=== PATIENT | female | born 1965 | race Caucasian/White ===

== ENCOUNTER 2020-10-03 02:10 | Emergency (ER) | payer OTHER ==
[~2020-10-03] VITALS: Ht 165.1 cm; Wt 83.5 kg
[~2020-10-03 02:10] MED LIST: AMIT50 PO; HYDACE5 PO; OXYACE7.5T PO; PENVK250 PO; RXOXYACE PO; RXPENVK250 PO; SERT100; TRAZADONE
[2020-10-03 05:38] LABS: BASOPHILS ABSOLUTE AUTO 0.04 K/mm3 (0.00-0.23); BASOPHILS PERCENT AUTO 0 % (0-2); EOSINOPHILS ABSOLUTE AUTO 0.12 K/mm3 (0.00-0.68); EOSINOPHILS PERCENT AUTO 1 % (0-6); Hematocrit 46.1 % (33.0-51.0); Hemoglobin 15.2 g/dL (11.5-16.0); IMMATURE GRAN ABSOLUTE AUTO 0.02 K/mm3 (0.00-0.10); IMMATURE GRAN PERCENT AUTO 0 % (0-1); LYMPHOCYTES ABSOLUTE AUTO 1.89 K/mm3 (0.84-5.20); LYMPHOCYTES PERCENT AUTO 18 % (21-46); MONOCYTES ABSOLUTE AUTO 0.58 K/mm3 (0.16-1.47); MONOCYTES PERCENT AUTO 6 % (4-13); Mean Corpuscular HGB 29.1 pg (26.0-34.0); Mean Corpuscular Volume 88 fL (80-100); Mean Platelet Volume 9.3 fL (9.1-12.4); NEUTROPHILS ABSOLUTE AUTO 7.65 K/mm3 (1.96-9.15); NEUTROPHILS PERCENT AUTO 74 % (41-73); Platelet Count 218 K/mm3 (150-400); RDW Coefficient Variation 13.2 % (11.7-14.2); RDW Standard Deviation 42.7 fL (35.1-46.3); Red Blood Cell Count 5.23 M/mm3 (3.80-5.20)
[2020-10-03 05:56] LABS: Alanine Aminotransfer (ALT/SGP 28 U/L (12-78); Albumin, Blood 3.8 g/dL (3.4-5.0); Alk Phos 160 U/L (50-136); Anion Gap 4 mmol/L (6-16); Aspartate Aminotrans (AST/SGOT 20 U/L (12-37); Bilirubin, Total 0.4 mg/dL (0.1-1.0); Blood Urea Nitrogen 12 mg/dL (8-24); Bun/Creatinine Ratio 19.5 (12.0-20.0); CO2, Blood 28 mmol/L (21-32); Calcium, Blood 9.5 mg/dL (8.5-10.1); Chloride, Blood 107 mmol/L (98-108); Creatinine, Blood 0.61 mg/dL (0.40-1.00); Globulin, Blood 3.9 g/dL (2.2-4.0); Glomerular Filtration Rate >60 (60-); Glucose, Blood 98 mg/dL (70-99); Potassium, Blood 3.7 mmol/L (3.5-5.5); Sodium, Blood 139 mmol/L (136-145); Total Protein, Blood 7.7 g/dL (6.4-8.2); Uric Acid, Blood 2.5 mg/dL (2.6-6.0)
[2020-10-03] MEDS ORDERED: CEPH500 PO (06:38)
[2020-10-03] MEDS ORDERED: Bactrim Ds Tab1 EACH PO (06:38)
== END 2020-10-03 06:57 | disposition home or self-care (01) ==
LOC: ER 02:10
PROVIDERS: Emergency Medicine
DX: L03.012 Cellulitis of left finger (principal); F17.200 Nicotine dependence, unspecified, uncomplicated; Z87.442 Personal history of urinary calculi
CPT/HCPCS: 36415; 73630; 80053; 84550; 85025; 99283-25; A9270; A9270-GY

== ENCOUNTER → 2020-10-07 | Outpatient (CLI) | payer OTHER ==
[~2020-10-07] MED LIST changes: +Bactrim Ds Tab1 EACH PO; +CEPH500 PO
[2020-10-08 09:58] LABS: Candida species (DNA Probe) Negative (NEGATIVE); G. vaginalis (DNA Probe) Positive (NEGATIVE); T. vaginalis (DNA Probe) Negative (NEGATIVE)
== END | disposition home or self-care (01) ==
LOC: LAB SHORT 13:07 → LAB 13:07
PROVIDERS: Nurse Practitioner Family
DX: Z12.72 Encounter for screening for malignant neoplasm of vagina (principal)
CPT/HCPCS: 87070; 87205; 87480; 87510; 87660; G0145

== ENCOUNTER → 2021-05-27 | Outpatient (CLI) | payer OTHER ==
[2021-05-27 14:22] LABS: Candida species (DNA Probe) Negative (NEGATIVE); G. vaginalis (DNA Probe) Positive (NEGATIVE); T. vaginalis (DNA Probe) Negative (NEGATIVE)
== END | disposition home or self-care (01) ==
LOC: LAB 09:48 → LAB SHORT 09:48
PROVIDERS: Nurse Practitioner Family
DX: N89.8 Other specified noninflammatory disorders of vagina (principal)
CPT/HCPCS: 87480; 87510; 87660

== ENCOUNTER 2022-01-13 09:09 | Emergency (ER) | payer OTHER ==
[~2022-01-13] VITALS: Ht 165.1 cm; Wt 77.1 kg
[2022-01-13] MEDS ORDERED: EZET10 PO (09:29)
[2022-01-13] MEDS ORDERED: CEPH500 PO (10:15)
== END 2022-01-13 10:35 | disposition home or self-care (01) ==
LOC: ER 09:09
DX: S61.512A Laceration without foreign body of left wrist, initial encounter (principal); F17.200 Nicotine dependence, unspecified, uncomplicated; Z23 Encounter for immunization; W27.5XXA Contact with paper-cutter, initial encounter; Z79.899 Other long term (current) drug therapy
CPT/HCPCS: 73100; 90714; A9270

== ENCOUNTER 2023-02-19 23:11 | Emergency (ER) | payer OTHER ==
[~2023-02-19] VITALS: Ht 165.1 cm; Wt 81.7 kg
[~2023-02-19 23:11] MED LIST changes: +EZET10 PO
[2023-02-20 00:02] LABS: BASOPHILS ABSOLUTE AUTO 0.03 K/mm3 (0.00-0.23); BASOPHILS PERCENT AUTO 0 % (0-2); EOSINOPHILS ABSOLUTE AUTO 0.13 K/mm3 (0.00-0.68); EOSINOPHILS PERCENT AUTO 1 % (0-6); Hematocrit 45.2 % (33.0-51.0); Hemoglobin 15.6 g/dL (11.5-16.0); IMMATURE GRAN ABSOLUTE AUTO 0.04 K/mm3 (0.00-0.10); IMMATURE GRAN PERCENT AUTO 0 % (0-1); LYMPHOCYTES ABSOLUTE AUTO 2.53 K/mm3 (0.84-5.20); LYMPHOCYTES PERCENT AUTO 28 % (21-46); MONOCYTES ABSOLUTE AUTO 0.57 K/mm3 (0.16-1.47); MONOCYTES PERCENT AUTO 6 % (4-13); Mean Corpuscular HGB 29.8 pg (26.0-34.0); Mean Corpuscular HGB Conc 34.5 g/dL (31.5-36.5); Mean Corpuscular Volume 86 fL (80-100); Mean Platelet Volume 9.2 fL (9.1-12.4); NEUTROPHILS ABSOLUTE AUTO 5.79 K/mm3 (1.96-9.15); NEUTROPHILS PERCENT AUTO 64 % (41-73); Platelet Count 150 K/mm3 (150-400); RDW Standard Deviation 41.1 fL (35.1-46.3); Red Blood Cell Count 5.23 M/mm3 (3.80-5.20); White Blood Cell Count 9.09 K/mm3 (4.00-11.30)
[2023-02-20 01:18] LABS: Albumin, Blood 3.6 g/dL (3.4-5.0); Albumin/Globulin Ratio 1.4 (0.8-1.8); Bilirubin, Total 0.3 mg/dL (0.1-1.0); Bun/Creatinine Ratio 19.4 (12.0-20.0); Calcium, Blood 8.8 mg/dL (8.5-10.1); Creatinine, Blood 0.62 mg/dL (0.40-1.00); Globulin, Blood 2.5 g/dL (2.2-4.0); Potassium, Blood 3.5 mmol/L (3.5-5.5); Total Protein, Blood 6.1 g/dL (6.4-8.2)
[2023-02-20 04:30] VITALS: BP 143/72
== END 2023-02-20 04:36 | disposition home or self-care (01) ==
LOC: ER 23:11
PROVIDERS: Student in an Organized Health Care Education/Training Program
DX: R07.2 Precordial pain (principal); R42 Dizziness and giddiness; R11.0 Nausea; R55 Syncope and collapse; Z79.899 Other long term (current) drug therapy; F17.210 Nicotine dependence, cigarettes, uncomplicated
CPT/HCPCS: 71045; 80053; 84484; 85025; 93005; 93010; 99285-25

== ENCOUNTER → 2023-06-08 | Outpatient (CLI) | payer OTHER ==
[2023-06-08 15:52] LABS: BASOPHILS ABSOLUTE AUTO 0.05 K/mm3 (0.00-0.23); BASOPHILS PERCENT AUTO 1 % (0-2); EOSINOPHILS ABSOLUTE AUTO 0.14 K/mm3 (0.00-0.68); EOSINOPHILS PERCENT AUTO 1 % (0-6); Hematocrit 45.8 % (33.0-51.0); Hemoglobin 15.2 g/dL (11.5-16.0); IMMATURE GRAN ABSOLUTE AUTO 0.03 K/mm3 (0.00-0.10); IMMATURE GRAN PERCENT AUTO 0 % (0-1); LYMPHOCYTES PERCENT AUTO 20 % (21-46); MONOCYTES PERCENT AUTO 4 % (4-13); Mean Corpuscular HGB 29.2 pg (26.0-34.0); Mean Corpuscular HGB Conc 33.2 g/dL (31.5-36.5); Mean Corpuscular Volume 88 fL (80-100); Mean Platelet Volume 9.4 fL (9.1-12.4); NEUTROPHILS ABSOLUTE AUTO 7.45 K/mm3 (1.96-9.15); NEUTROPHILS PERCENT AUTO 74 % (41-73); Platelet Count 215 K/mm3 (150-400); RDW Coefficient Variation 13.3 % (11.7-14.2); RDW Standard Deviation 42.9 fL (35.1-46.3); Red Blood Cell Count 5.21 M/mm3 (3.80-5.20); White Blood Cell Count 10.07 K/mm3 (4.00-11.30)
[2023-06-08 17:53] LABS: Calcium, Blood 8.8 mg/dL (8.5-10.1); Creatinine, Blood 0.55 mg/dL (0.40-1.00); Potassium, Blood 3.7 mmol/L (3.5-5.5)
[2023-06-11 05:59] LABS: ANTI-NUCLEAR AB ANA,IGG ELISA None Detected (None Detected)
== END | disposition home or self-care (01) ==
LOC: LAB 14:58 → LAB SHORT 14:58
PROVIDERS: Family Medicine
DX: M65.9 Synovitis and tenosynovitis, unspecified (principal)
CPT/HCPCS: 80048; 85025; 86038; 86430

== ENCOUNTER 2024-07-12 11:12 | Day surgery (SDC) | payer OTHER ==
[~2024-07-12] VITALS: Ht 165.1 cm; Wt 75.4 kg
[2024-07-12] MEDS ORDERED: propofoL 100 ML IV ONE (12:06)
[2024-07-12] MEDS ORDERED: Tranexamic Acid 100 ML IV ONE (12:19)
[2024-07-12] MEDS ORDERED: TRAM50 PO (12:42)
[2024-07-12] MEDS ORDERED: ZOCOR20 MG PO (12:42)
[2024-07-12] MEDS ORDERED: Lactated Ringer's 1,000 ML IV ONE (12:49)
[2024-07-12] MEDS ORDERED: Acetaminophen 500 MG Tab ONE (12:55)
[2024-07-12] MEDS ORDERED: EPINEPhrine HCl 1 MG / ML 30ML Vial ONE (13:02)
[2024-07-12] MEDS ORDERED: Lidocaine 1%-Epineph 1:200000 30 ML SDV ONE (13:05)
[2024-07-12] MEDS ORDERED: FentaNYL Citrate 50 MCG/ML 2 ML Injection ONE ×2 (13:06→15:13)
[2024-07-12] MEDS ORDERED: Phenylephrine HCl 100 MCG/ML-NS 10MLSYR (1MG/10ML) ONE (13:35)
[2024-07-12] MEDS ORDERED: Metoclopramide HCl 5MG / ML 2ML Vial ONE (13:48)
[2024-07-12] MEDS ORDERED: Sugammadex Sodium 200 MG/2ML SDV (100 MG/ML) ONE (13:48)
[2024-07-12] MEDS ORDERED: Ondansetron HCl 2 MG / ML 2ML Vial ONE (13:48)
[2024-07-12] MEDS ORDERED: Rocuronium Bromide 10 MG/ML 5ML Injection IV ONE ×2 (13:48→14:31)
[2024-07-12] MEDS ORDERED: Dexamethasone Sod Phos 10 MG/ML 1ML VIAL ONE (13:48)
[2024-07-12] MEDS ORDERED: Ipratropium/Albuterol SulF 2.5-0.5MG/3 ML Amp ONE (14:54)
--- NOTE | 2024-07-12 15:03 | NUR ---
07/12/24 1503 Luz Elena Guerra PATIENT HAS DRY, CHRONIC COUGH. DUONEB ADMINISTERED.
[2024-07-12 15:46] VITALS: BP 130/59
--- NOTE | 2024-07-12 16:56 | NUR ---
07/12/[address] CONSULTED REGARDING D/C ORDERS PRIOR TO D/C. NEW ORDER SET OBTAINED VERBALLY (SEE SURGEON ORDERS.) PT HAD 25ML OF LR REMAINING IN BAG UPON ARRIVAL IN SDU. PT VOIDED WITHOUT COMPLICATION PRIOR TO D/C. SHE REPORTED TOLERABLE 2/10 PAIN UPON D/C AND DENIED NAUSEA (FLACC 1-2/10) . SHE APPEARED ALERT AND RELAXED AND EXPRESSED READINESS TO RETURN HOME.
== END 2024-07-12 16:45 | disposition home or self-care (01) ==
LOC: ORSCSDS 11:12
PROVIDERS: Otolaryngology
PROC: 09BQ4ZZ Excision of Right Maxillary Sinus, Percutaneous Endoscopic Approach (ICD-10-PCS; principal; 2024-07-12 13:00)
DX: D49.1 Neoplasm of unspecified behavior of respiratory system (principal); J44.9 Chronic obstructive pulmonary disease, unspecified; F17.210 Nicotine dependence, cigarettes, uncomplicated; E78.5 Hyperlipidemia, unspecified; K21.9 Gastro-esophageal reflux disease without esophagitis; Z79.899 Other long term (current) drug therapy
CPT/HCPCS: 88305; 88323; 88341; 88342; A9270; J0171; J1100; J2371; J2405; J2704; J2765; J3010

== ENCOUNTER → 2024-07-21 | Outpatient (CLI) | payer OTHER ==
[~2024-07-21] MED LIST changes: +TRAM50 PO; +ZOCOR20 MG PO
[2024-07-21 17:17] LABS: Bacterial Vaginosis PCR Negative (NEGATIVE); Candida Group, PCR NOT DETECTED (NOT DETECT); Candida glabrata-krusei, PCR NOT DETECTED (NOT DETECT)
== END | disposition home or self-care (01) ==
LOC: LAB SHORT 15:16
PROVIDERS: Family Medicine
DX: L29.0 Pruritus ani (principal)
CPT/HCPCS: 81515

== ENCOUNTER → 2024-08-07 | Outpatient (CLI) | payer OTHER ==
[2024-08-10 10:31] LABS: C. TRACHOMATIS BY TMA,THINPREP Negative (Negative); N. GONORRHOEAE BY TMA,THINPREP Negative (Negative); SPECIMEN SOURCE Cervical
[2024-08-14 09:21] LABS: HPV HIGH RISK BY TMA Not Detected; HPV SOURCE Cervical
== END ==
LOC: LAB 17:54 → LAB SHORT 17:54
PROVIDERS: Nurse Practitioner Family
DX: Z12.4 Encounter for screening for malignant neoplasm of cervix (principal)
CPT/HCPCS: 87491; 87591; 87624; G0123

== ENCOUNTER → 2024-08-25 | Outpatient (CLI) | payer OTHER ==
[~2024-08-25] MED LIST changes: +ACET325 PO; +ALLEGRA ALLERG180 MG PO; +BUDESONIDE-FO10.2 G3 INH; +DOCU100 PO; +ERGO400; +HYDR1TAB94 PO; +IBUP800 PO; +SPIRIVA RESPIMAT4 G3; +ZOFRAN8 MG PO
[2024-08-25 20:10] LABS: Very Low Density Lipoprot Chol 45 mg/dL (6-32)
[2024-08-25 20:13] LABS: Cholesterol 265 mg/dL (50-200); HDL Cholesterol 53 mg/dL (>39); LDL/HDL RATIO 3.2; Low Density Lipoprotein Chol 167 mg/dL (0-110); Triglycerides 225 mg/dL (30-160)
== END ==
LOC: LAB SHORT 16:16 → LAB 16:16
PROVIDERS: Physician Assistant
DX: E78.5 Hyperlipidemia, unspecified (principal)
CPT/HCPCS: 80061

== ENCOUNTER 2024-08-30 06:02 | Day surgery (SDC) | payer OTHER ==
[2024-08-30] VITALS (8 sets, daily range): BP systolic 102–165; BP diastolic 64–102
[~2024-08-30] VITALS: Ht 160 cm; Wt 74.1 kg
[2024-08-30] MEDS ORDERED: Lactated Ringer's 1,000 ML IV SCH (06:25)
[2024-08-30] MEDS ORDERED: CeFAZolin Sodium 2,000 MG in NS 100 ML IV SCH (06:25)
--- NOTE | 2024-08-30 06:35 | NUR ---
AMBULATORY INTO [facility]. PT REPORTS 8/10 RIGHT SHOULDER PAIN THAT IS CHRONIC. HISTORY AND ALLERGIES REVIEWED. LUNGS WITH SCATTERED RHONCHI-PT USED RESCUE INHALER. PT HAS FREQUENT MOIST COUGH THAT IS RARELY PRODUCTIVE OF CLEAR SECRETIONS. NPO STATUS CONFIRMED. PT SPOUSE BORIS IS RIDE HOME TODAY.
[2024-08-30] MEDS ORDERED: propofoL 20 ML IV ONE (06:50)
[2024-08-30] MEDS ORDERED: Ondansetron HCl 2 MG / ML 2ML Vial ONE (06:51)
[2024-08-30] MEDS ORDERED: Dexamethasone Sod Phos 10 MG/ML 1ML VIAL ONE (06:51)
[2024-08-30] MEDS ORDERED: FentaNYL Citrate 50 MCG/ML 2 ML Injection ONE (06:51)
[2024-08-30] MEDS ORDERED: Midazolam HCl 1MG / ML 2ML Vial ONE (06:51)
[2024-08-30] MEDS ORDERED: CeFAZolin Sodium 2,000 MG VIAL ONE (07:03)
[2024-08-30] MEDS ORDERED: Bupivacaine 0.5% HCl 5 MG/ML 30MLVIAL ONE (07:09)
[2024-08-30] MEDS ORDERED: Glycopyrrolate 0.2 MG/ML 5ML VIAL ONE (07:41)
[2024-08-30] MEDS ORDERED: Ketorolac Tromethamine 30mg Vial ONE (07:53)
[2024-08-30] MEDS ORDERED: HYDROcodone 5-APAP 325 TAB PO PRN (08:30)
--- NOTE | 2024-08-30 08:52 | NUR ---
PT HAS NEW ONSET BRUISING UNDER RIGHT EYE AND ON THE INSIDE OF THE LEFT EYE. DR. TREVINO AWARE
--- NOTE | 2024-08-30 09:24 | NUR ---
Patient up to Ambulate independently. Gait steady. Discharge instructions reviewed with patient. Patient verbalizes understanding. Copy given to patient to take home. Discharged via wheelchair to private car for ride home.
== END 2024-08-30 09:20 | disposition home or self-care (01) ==
LOC: ORSCMMR 06:02 → ORD 06:02 → ORSCMMR 06:03 → ORD 07:30
PROVIDERS: Surgery
PROC: 05HM33Z Insertion of Infusion Device into Right Internal Jugular Vein, Percutaneous Approach (ICD-10-PCS; principal; 2024-08-30 07:30)
PROC: B543ZZA Ultrasonography of Right Jugular Veins, Guidance (ICD-10-PCS; principal; 2024-08-30 07:30)
PROC: 0JH63WZ Insertion of Totally Implantable Vascular Access Device into Chest Subcutaneous Tissue and Fascia, Percutaneous Approach (ICD-10-PCS; principal; 2024-08-30 07:30)
DX: C85.98 Non-Hodgkin lymphoma, unspecified, lymph nodes of multiple sites (principal); J44.9 Chronic obstructive pulmonary disease, unspecified; Z79.899 Other long term (current) drug therapy; F17.210 Nicotine dependence, cigarettes, uncomplicated
CPT/HCPCS: 77001; C1788; J0690; J1100; J1642; J1885; J2250; J2405; J2704; J3010; J7120

== ENCOUNTER 2024-10-21 11:21 | Inpatient (IN) | payer OTHER ==
[~2024-10-21] VITALS: Ht 162.6 cm; Wt 74.8 kg
[~2024-10-21 11:21] MED LIST changes: -SPIRIVA RESPIMAT4 G3; +SPIRIVA RESPIMAT4 G3 INH
[2024-10-21 11:59] LABS: BASOPHILS ABSOLUTE AUTO 0.02 K/mm3 (0.00-0.23); BASOPHILS PERCENT AUTO 0 % (0-2); EOSINOPHILS ABSOLUTE AUTO 0.01 K/mm3 (0.00-0.68); EOSINOPHILS PERCENT AUTO 0 % (0-6); Hematocrit 38.1 % (33.0-51.0); Hemoglobin 13.4 g/dL (11.5-16.0); IMMATURE GRAN ABSOLUTE AUTO 0.06 K/mm3 (0.00-0.10); IMMATURE GRAN PERCENT AUTO 1 % (0-1); LYMPHOCYTES ABSOLUTE AUTO 0.07 K/mm3 (0.84-5.20); LYMPHOCYTES PERCENT AUTO 1 % (21-46); MONOCYTES ABSOLUTE AUTO 0.31 K/mm3 (0.16-1.47); MONOCYTES PERCENT AUTO 2 % (4-13); Mean Corpuscular HGB 30.9 pg (26.0-34.0); Mean Corpuscular HGB Conc 35.2 g/dL (31.5-36.5); Mean Corpuscular Volume 88 fL (80-100); Mean Platelet Volume 8.6 fL (9.1-12.4); NEUTROPHILS ABSOLUTE AUTO 12.37 K/mm3 (1.96-9.15); NEUTROPHILS PERCENT AUTO 96 % (41-73); Platelet Count 111 K/mm3 (150-400); RDW Coefficient Variation 14.9 % (11.7-14.2); RDW Standard Deviation 48.3 fL (35.1-46.3); Red Blood Cell Count 4.33 M/mm3 (3.80-5.20); White Blood Cell Count 12.84 K/mm3 (4.00-11.30)
[2024-10-21 12:15] LABS: Albumin, Blood 2.9 g/dL (3.4-5.0); Albumin/Globulin Ratio 0.7 (0.8-1.8); Bilirubin, Total 0.6 mg/dL (0.1-1.0); Bun/Creatinine Ratio 22.3 (12.0-20.0); Calcium, Blood 8.7 mg/dL (8.5-10.1); Creatinine, Blood 0.63 mg/dL (0.40-1.00); Globulin, Blood 3.9 g/dL (2.2-4.0); Potassium, Blood 3.3 mmol/L (3.5-5.5); Total Protein, Blood 6.8 g/dL (6.4-8.2)
[2024-10-21 13:38] LABS: Source, Urine Clean Catch
[2024-10-21 13:41] LABS: Appearance, Urine Clear (Clear); Bilirubin, Urine Neg (Neg); Blood, Urine 3+ (Neg); Color, Urine Yellow (P-Yellow); Glucose Qualitative, Urine Neg (Neg); Ketones, Urine 3+ (Neg); Leukocyte Esterase, Urine 1+ (Neg); Nitrite, Urine Neg (Neg); Protein, Urine 2+ (Neg); Specific Gravity, Urine 1.015 (1.003-1.022); Urobilinogen, Urine 1+ (Normal)
[2024-10-21 13:47] LABS: Bacteria Few /hpf; Hyaline Casts 0-2 /lpf (0-2); Squamous Epithelial Cells Few /hpf (Few)
[2024-10-21] MEDS ORDERED: HYDROmorphone HCl/Pf 1MG SYR IV ONE (15:20)
[2024-10-21] MEDS ORDERED: Ampicillin Sod/Sulbactam Sod 3 GM in NS 100 ML IV ONE (15:20)
[2024-10-21] MEDS ORDERED: NS 1,000 ML IV SCH ×2 (15:25→16:00)
[2024-10-21] MEDS ORDERED: Ondansetron 4 MG TAB PO PRN (16:00)
[2024-10-21] MEDS ORDERED: TraZODone HCl 50 MG Tab PO PRN (16:00)
[2024-10-21] MEDS ORDERED: Bisacodyl 10 MG Supp PR PRN (16:00)
[2024-10-21] MEDS ORDERED: Magnesium Hydroxide Conc 10 ML UDC PO PRN (16:00)
[2024-10-21] MEDS ORDERED: Ipratropium/Albuterol SulF 2.5-0.5MG/3 ML Amp INH PRN (16:05)
[2024-10-21] MEDS ORDERED: Mometasone/Formoterol MDI 200/5 mcg 13 GM INH SCH (16:05)
[2024-10-21] MEDS ORDERED: Ondansetron HCl 2 MG / ML 2ML Vial IV ONE (16:10)
[2024-10-21] MEDS ORDERED: OxyCODONE 5 mg/Acetamin 325 mg TABLET PO PRN (19:40)
[2024-10-21 20:14] VITALS: BP 96/57
[2024-10-21] MEDS ORDERED: Calcium Carbonate 500 MG Tab Chew PO PRN (21:35)
[2024-10-21 23:38] VITALS: BP 130/52
[2024-10-22] MEDS ORDERED: Piperacillin/Tazobactam Sod 3.375 GM in NS 100 ML IV SCH
[2024-10-22] MEDS ORDERED: Ampicillin Sod/Sulbactam Sod 3 GM in NS 100 ML IV SCH
[2024-10-22] MEDS ORDERED: HYDROmorphone HCl/Pf 1MG SYR IV PRN ×2 (00:10→11:20)
[2024-10-22] MEDS ORDERED: Ketorolac Tromethamine 15mg Vial IV PRN (00:20)
--- NOTE | 2024-10-22 03:01 | NUR ---
SHIFT SUMMARY PT ARRIVED FROM THE ED 2029. PT BROUGHT ALL HER BELONINGS WITH HER. EDUCATED CONTRACTS MANAGER LIGHT AND FALL PREVENTIONS. EDUCATED ON SMOKING POLICY. PT'S BY THE BEDSIDE. RN BREAK NURSE PANDA COMPLETED THE ADMISSION ASSESSMENT, SKIN CHECK WITH THIS MANIPULATOR OPERATOR. PT IS A/O X4, ABLE TO MAKE HER NEEDS KNOWN. PT IS INDEPENDENT W/I THE HOSPITAL ROOM. CONTINENT. NS INFUSING 1/2 BAGS ORDERED. IV ABX INFUSED ORDERED. NEW ORDER FOR PO PERCOCET RECEIVED FROM THE ON-CALL HOSPITALIST. MEDICATED FOR 9/10 LLW, AND RLQ PAIN PER PT REQUEST. BED AT THE LOWEST POSITION, CALL LIGHT W/I REACH.
[2024-10-22 03:44] VITALS: BP 119/63
[2024-10-22 05:10] LABS: BASOPHILS ABSOLUTE AUTO 0.03 K/mm3 (0.00-0.23); BASOPHILS PERCENT AUTO 0 % (0-2); EOSINOPHILS ABSOLUTE AUTO 0.01 K/mm3 (0.00-0.68); EOSINOPHILS PERCENT AUTO 0 % (0-6); Hematocrit 34.6 % (33.0-51.0); IMMATURE GRAN ABSOLUTE AUTO 0.26 K/mm3 (0.00-0.10); IMMATURE GRAN PERCENT AUTO 3 % (0-1); LYMPHOCYTES ABSOLUTE AUTO 0.09 K/mm3 (0.84-5.20); LYMPHOCYTES PERCENT AUTO 1 % (21-46); MONOCYTES PERCENT AUTO 4 % (4-13); Mean Corpuscular HGB Conc 34.7 g/dL (31.5-36.5); Mean Corpuscular Volume 89 fL (80-100); Mean Platelet Volume 8.8 fL (9.1-12.4); NEUTROPHILS ABSOLUTE AUTO 9.68 K/mm3 (1.96-9.15); NEUTROPHILS PERCENT AUTO 92 % (41-73); Platelet Count 93 K/mm3 (150-400); RDW Coefficient Variation 15.2 % (11.7-14.2); RDW Standard Deviation 49.7 fL (35.1-46.3); Red Blood Cell Count 3.87 M/mm3 (3.80-5.20); White Blood Cell Count 10.47 K/mm3 (4.00-11.30)
[2024-10-22 05:35] LABS: Albumin, Blood 2.4 g/dL (3.4-5.0); Albumin/Globulin Ratio 0.7 (0.8-1.8); Bilirubin, Total 0.5 mg/dL (0.1-1.0); Bun/Creatinine Ratio 12.7 (12.0-20.0); Calcium, Blood 8.4 mg/dL (8.5-10.1); Creatinine, Blood 0.63 mg/dL (0.40-1.00); Globulin, Blood 3.5 g/dL (2.2-4.0); Total Protein, Blood 5.9 g/dL (6.4-8.2)
[2024-10-22 07:33] VITALS: BP 121/66
[2024-10-22] MEDS ORDERED: Loratadine 10 MG Tab PO SCH (09:00)
[2024-10-22] MEDS ORDERED: Enoxaparin 40 MG/0.4 ML SYR SC SCH (09:00)
[2024-10-22] MEDS ORDERED: Potassium Chloride 20 MEQ TabCR PO ONE (09:00)
[2024-10-22 09:25] VITALS: BP 108/60
[2024-10-22] MEDS ORDERED: Docusate Sodium/Senna 1 Tab PO PRN (11:15)
[2024-10-22] MEDS ORDERED: Ondansetron HCl 2 MG / ML 2ML Vial IV PRN (11:20)
[2024-10-22] MEDS ORDERED: Mineral Oil 133 ML Enema PR ONE (11:20)
--- NOTE | 2024-10-22 11:38 | NUR ---
ENEMA PHARAMCY OUT OF FLEETS OIL ENEMA. DR SELF CALLED. SIMPLE FLEETS SOAP SUDS ORDERED. CARE ONGOING.
[2024-10-22] MEDS ORDERED: Sod Phosphate/Sod Biphosphate 132 ML BTL PR ONE (11:40)
[2024-10-22] MEDS ORDERED: Acetaminophen 500 MG Tab PO SCH (12:00)
[2024-10-22] MEDS ORDERED: OxyCODONE HCL 5 MG TAB PO SCH (12:00)
[2024-10-22] MEDS ORDERED: Potassium Chloride 20 MEQ/15 ML UDC PO SCH (12:00)
--- NOTE | 2024-10-22 16:58 | NUR ---
NOTE PT AWAKE VISITNG WITH FAMILY. SCHEDULED NARCOTICS EFFECTIVE. ZOFRAN 8MG EFFECTIVE FOR NAUSEA. ABD TENDER AND SOFT. PT DRINKING PEPSI. SHE STATES THAT IT SETTELES HER STOMACH BETTER THAN TUMS. UP TO BSC AD AGATA. SHE HAS NOT HAD A BM. TALKED WITH HER ABOUT A SUPPOSITORY BEFORE BED. CARE ONGOING.
[2024-10-22 17:00] VITALS: BP 101/52
[2024-10-22 19:52] VITALS: BP 89/46
[2024-10-22] MEDS ORDERED: Polyethylene Glycol 3350 17 gm PO SCH (21:00)
[2024-10-22 23:17] VITALS: BP 90/57
--- NOTE | 2024-10-22 23:27 | NUR ---
@HS PT HAS SOFT BP'S/ CHECKED MANUALLY @3384 90/58, P.58. PT REMAINS ASYMPTOMATIC. WILL NOTIFY CHARGE NURSE.
[2024-10-23 02:50] VITALS: BP 94/60
--- NOTE | 2024-10-23 03:35 | NUR ---
SHIFT SUMMARY NO ACUTE EVENTS DURING THIS SHIFT. SOFT BP'S, PT HAS A GREAT PO INTAKE FOR FLUIDS AND REMAINS ASYMPTOMATIC. RN NOTIFIED. PAIN LEVEL IS 5/10 WITH SCHEDULED TYLENOL AND OXYCODONE. IV ABX INFUSED ORDERED. BED AT THE LOWEST POSITION, CALL LIGHT W/I REACH. PT IS A/O X4, ABLE TO MAKE HER NEEDS KNOWN AND COOPERATIVE WITH CARE. SBA TO THE RESTROOM OR BSC. NO BM DURING THIS SHIFT, MIRALAX ADMINISTERED AT HS.
[2024-10-23] MEDS ORDERED: NS 250 ML IV PRN (05:05)
[2024-10-23 05:28] LABS: BASOPHILS ABSOLUTE AUTO 0.03 K/mm3 (0.00-0.23); BASOPHILS PERCENT AUTO 1 % (0-2); Hematocrit 32.5 % (33.0-51.0); Hemoglobin 11.2 g/dL (11.5-16.0); LYMPHOCYTES PERCENT AUTO 2 % (21-46); MONOCYTES ABSOLUTE AUTO 0.23 K/mm3 (0.16-1.47); MONOCYTES PERCENT AUTO 4 % (4-13); Mean Corpuscular HGB 30.9 pg (26.0-34.0); Mean Corpuscular HGB Conc 34.5 g/dL (31.5-36.5); Mean Corpuscular Volume 90 fL (80-100); Platelet Count 98 K/mm3 (150-400); RDW Coefficient Variation 15.5 % (11.7-14.2); RDW Standard Deviation 50.7 fL (35.1-46.3); Red Blood Cell Count 3.63 M/mm3 (3.80-5.20); White Blood Cell Count 5.63 K/mm3 (4.00-11.30)
[2024-10-23 05:32] LABS: EOSINOPHILS ABSOLUTE AUTO 0.03 K/mm3 (0.00-0.68); EOSINOPHILS PERCENT AUTO 1 % (0-6); IMMATURE GRAN ABSOLUTE AUTO 0.02 K/mm3 (0.00-0.10); IMMATURE GRAN PERCENT AUTO 0 % (0-1); NEUTROPHILS ABSOLUTE AUTO 5.22 K/mm3 (1.96-9.15); NEUTROPHILS PERCENT AUTO 93 % (41-73)
[2024-10-23 05:54] LABS: Bun/Creatinine Ratio 13.3 (12.0-20.0); Calcium, Blood 8.4 mg/dL (8.5-10.1); Creatinine, Blood 0.68 mg/dL (0.40-1.00); Magnesium, Blood 1.9 mg/dL (1.6-2.4); Potassium, Blood 3.2 mmol/L (3.5-5.5)
[2024-10-23 07:30] VITALS: BP 99/62
[2024-10-23] MEDS ORDERED: NS 1,000 ML IV SCH (08:20)
[2024-10-23 11:06] VITALS: BP 107/61
[2024-10-23 14:38] VITALS: BP 97/53
--- NOTE | 2024-10-23 18:20 | NUR ---
PATIENT A/OX4, UP INDEPENDENTLY TO BSC. VERY SMALL BM THIS AM, CONTINUE WITH BOWEL CARE. VSS, ON RA. REPORTS GOOD PAIN CONTROL WITH SCHEDULED TYLENOL AND OXYCODONE. SCATTERED BRUISING, OTHERWISE SKIN INTACT. TOLERATING FULL LIQUID DIET. NS INFUSING AT 100ML/HR T L FA IV. PATENT PLEASANT AND COOPERATIVE AND USES CALL LIGHT APPROPRIATELY FOR ASSISTANCE. NO NEW CONCERNS THIS SHIFT.
[2024-10-23 19:36] VITALS: BP 109/56
[2024-10-23 23:52] VITALS: BP 105/62
[2024-10-24 03:44] VITALS: BP 113/65
--- NOTE | 2024-10-24 04:01 | NUR ---
SHIFT SUMMARY A/OX4, UP IND TO BSC. SEVERAL LOOSE STOOLS THIS SHIFT. IV FLUIDS AND ABX GIVEN PER AUG. C/O MODERATE ABD PAIN, MEDICATED WITH SCHEDULED OXY PER EMAR. VSS, NO ACUTE CHANGES AT THIS TIME. BED IN LOWEST POSITION WITH CALL LIGHT IN REACH.
[2024-10-24 05:07] LABS: BASOPHILS ABSOLUTE AUTO 0.02 K/mm3 (0.00-0.23); BASOPHILS PERCENT AUTO 0 % (0-2); EOSINOPHILS ABSOLUTE AUTO 0.03 K/mm3 (0.00-0.68); EOSINOPHILS PERCENT AUTO 0 % (0-6); Hematocrit 31.6 % (33.0-51.0); Hemoglobin 11.1 g/dL (11.5-16.0); IMMATURE GRAN ABSOLUTE AUTO 0.09 K/mm3 (0.00-0.10); IMMATURE GRAN PERCENT AUTO 1 % (0-1); LYMPHOCYTES ABSOLUTE AUTO 0.14 K/mm3 (0.84-5.20); LYMPHOCYTES PERCENT AUTO 2 % (21-46); MONOCYTES ABSOLUTE AUTO 0.26 K/mm3 (0.16-1.47); MONOCYTES PERCENT AUTO 3 % (4-13); Mean Corpuscular HGB 30.7 pg (26.0-34.0); Mean Corpuscular HGB Conc 35.1 g/dL (31.5-36.5); Mean Corpuscular Volume 88 fL (80-100); Mean Platelet Volume 8.7 fL (9.1-12.4); NEUTROPHILS ABSOLUTE AUTO 7.39 K/mm3 (1.96-9.15); NEUTROPHILS PERCENT AUTO 93 % (41-73); Platelet Count 112 K/mm3 (150-400); RDW Coefficient Variation 15.6 % (11.7-14.2); RDW Standard Deviation 49.9 fL (35.1-46.3); Red Blood Cell Count 3.61 M/mm3 (3.80-5.20); White Blood Cell Count 7.93 K/mm3 (4.00-11.30)
[2024-10-24 05:24] LABS: Albumin, Blood 2.1 g/dL (3.4-5.0); Albumin/Globulin Ratio 0.6 (0.8-1.8); Bilirubin, Total 0.3 mg/dL (0.1-1.0); Bun/Creatinine Ratio 15.9 (12.0-20.0); Calcium, Blood 8.5 mg/dL (8.5-10.1); Creatinine, Blood 0.57 mg/dL (0.40-1.00); Globulin, Blood 3.8 g/dL (2.2-4.0); Magnesium, Blood 1.8 mg/dL (1.6-2.4); Total Protein, Blood 5.9 g/dL (6.4-8.2)
[2024-10-24 07:49] VITALS: BP 112/62
[2024-10-24] MEDS ORDERED: Potassium Chloride 20 MEQ TabCR PO SCH (09:00)
[2024-10-24] MEDS ORDERED: DOCUZEN 8.6-501 EACH PO (11:05)
[2024-10-24] MEDS ORDERED: LEVO750 PO (11:06)
--- NOTE | 2024-10-24 11:20 | NUR ---
PATIENT DC'D TO HOME WITH FAMILY. DC INSTRUCTIONS AND EDUCATION DISCUSSED WITH PATIENT AND COPY PROVIDED. RX MEDICATIONS FAXED TO [facility]. PATIENT DENIES ANY FURTHER QUESTIONS OR CONCERNS.
== END 2024-10-24 11:30 | disposition home or self-care (01) | DRG 392 ==
LOC: ER 11:21 → ERHOLD 15:55 → MEDS 19:30
PROVIDERS: Student in an Organized Health Care Education/Training Program; ADMIT Hospitalist
DX: K57.20 Diverticulitis of large intestine with perforation and abscess without bleeding (principal); C82.90 Follicular lymphoma, unspecified, unspecified site; J44.9 Chronic obstructive pulmonary disease, unspecified; M19.90 Unspecified osteoarthritis, unspecified site; F17.200 Nicotine dependence, unspecified, uncomplicated; Z87.442 Personal history of urinary calculi; Z90.49 Acquired absence of other specified parts of digestive tract; Z98.890 Other specified postprocedural states; Z98.51 Tubal ligation status; Z91.040 Latex allergy status; Z88.6 Allergy status to analgesic agent; Z88.8 Allergy status to other drugs, medicaments and biological substances; Z79.899 Other long term (current) drug therapy
CPT/HCPCS: 36415; 74018; 74177; 80048; 80053; 81001; 83605; 83690; 83735; 84100; 84145; 85025; 87086; 94640; 94664; 94760; 99285-25; A9270; J0295; J1171; J1650; J1885; J2405; J2543; J7030; Q9967

== ENCOUNTER 2024-11-15 04:03 | Inpatient (IN) | payer OTHER ==
[~2024-11-15] VITALS: Ht 160 cm; Wt 72.0 kg
[~2024-11-15 04:03] MED LIST changes: +DOCUZEN 8.6-501 EACH PO; +LEVO750 PO; +ONDA4ODT MM
[2024-11-15 05:19] LABS: Source, Urine Clean Catch
[2024-11-15 05:21] LABS: BASOPHILS ABSOLUTE AUTO 0.08 K/mm3 (0.00-0.23); BASOPHILS PERCENT AUTO 0 % (0-2); EOSINOPHILS PERCENT AUTO 0 % (0-6); Hematocrit 32.1 % (33.0-51.0); Hemoglobin 11.2 g/dL (11.5-16.0); IMMATURE GRAN ABSOLUTE AUTO 1.04 K/mm3 (0.00-0.10); IMMATURE GRAN PERCENT AUTO 5 % (0-1); LYMPHOCYTES ABSOLUTE AUTO 2.35 K/mm3 (0.84-5.20); LYMPHOCYTES PERCENT AUTO 10 % (21-46); MONOCYTES ABSOLUTE AUTO 1.48 K/mm3 (0.16-1.47); MONOCYTES PERCENT AUTO 7 % (4-13); Mean Corpuscular HGB Conc 34.9 g/dL (31.5-36.5); Mean Corpuscular Volume 86 fL (80-100); NEUTROPHILS ABSOLUTE AUTO 17.87 K/mm3 (1.96-9.15); NEUTROPHILS PERCENT AUTO 78 % (41-73); Platelet Count 242 K/mm3 (150-400); RDW Standard Deviation 49.8 fL (35.1-46.3); Red Blood Cell Count 3.73 M/mm3 (3.80-5.20); White Blood Cell Count 22.82 K/mm3 (4.00-11.30)
[2024-11-15 05:27] LABS: Blood, Urine 4+ (Neg); Glucose Qualitative, Urine Neg (Neg); Ketones, Urine 1+ (Neg); Leukocyte Esterase, Urine 3+ (Neg); Nitrite, Urine Neg (Neg); Protein, Urine 3+ (Neg); Urobilinogen, Urine 1+ (Normal)
[2024-11-15 05:36] LABS: Bilirubin, Urine 1+ (Neg)
[2024-11-15 05:37] LABS: Appearance, Urine Cloudy (Clear); Color, Urine Amber (P-Yellow)
[2024-11-15 05:38] LABS: Amorphous Light (0-Heavy); Bacteria Many /hpf; Mucus Light (0-Heavy); Squamous Epithelial Cells Few /hpf (Few); White Blood Cells, Urine 25-50 /hpf (0-5)
[2024-11-15 05:43] LABS: Albumin, Blood 2.6 g/dL (3.4-5.0); Albumin/Globulin Ratio 0.7 (0.8-1.8); Bilirubin, Total 0.5 mg/dL (0.1-1.0); Bun/Creatinine Ratio 17.2 (12.0-20.0); Calcium, Blood 8.8 mg/dL (8.5-10.1); Creatinine, Blood 0.58 mg/dL (0.40-1.00); Globulin, Blood 3.6 g/dL (2.2-4.0); Total Protein, Blood 6.2 g/dL (6.4-8.2)
[2024-11-15] MEDS ORDERED: CefTRIAXone Sodium 1,000 MG in NS 100 ML IV ONE (06:45)
[2024-11-15] MEDS ORDERED: Ondansetron HCl 2 MG / ML 2ML Vial IV PRN (08:10)
[2024-11-15] MEDS ORDERED: Potassium Chloride 40 MEQ in NS 250 ML IV ONE (08:15)
[2024-11-15] MEDS ORDERED: NS 250 ML IV PRN (09:00)
[2024-11-15] MEDS ORDERED: Ampicillin Sod/Sulbactam Sod 3 GM in NS 100 ML IV SCH (09:00)
[2024-11-15 12:09] VITALS: BP 108/64
[2024-11-15] MEDS ORDERED: Sodium, Potassium,Mag Sulfates 354 ML PO ONE (13:05)
[2024-11-15] MEDS ORDERED: FentaNYL Citrate 50 MCG/ML 2 ML Injection IV PRN (13:40)
[2024-11-15] MEDS ORDERED: NEOMYCIN SULFATE 500 MG PO SCH (14:00)
[2024-11-15] MEDS ORDERED: MetroNIDAZOLE 500 MG Tab PO SCH (14:00)
[2024-11-15 14:37] VITALS: BP 109/60
--- NOTE | 2024-11-15 18:09 | NUR ---
SHIFT SUMMARY ASSUMED CARE FROM ER AROUND 1200. PT AXO4 - AMBULATORY, ARRIVES IN WHEELCHAIR, NOT TOLERATING IV KCL WELL, POWERGLIDE PLACED, NOW TOLERATING WELL. PT HAS MEDIPORT FOR CANCER TREATMENT, ONCOLOGIST STATES TO NOT UTILIZE MEDIPORT FOR PT. PT W/ DIARRHEA THE LAST FEW WEEKS, THIS CONTINUES BUT PT STARTED ON BOWEL PREP FOR PROCEDURE TOMORROW WITH DR DALAL. PT SLOWLY TOLERATING PREP BUT STRUGGLING TO CONSUME MIXTURE. PT WITH MILD PAIN TO ABD, MEDS PER EMAR. PT ON TELE, SR PER WIND SCIENCE AND PLANNING. VAGINAL BLEDING MINIMAL, MORE "YELLOW LOOKING" OUTPUT TO PT. THIS RN HAS NOT VISUALIZED. OTHERWISE, TOLERATING CLEAR LIQUID DIET WELL. VSS. FAMILY IN ROOM AT DIFFERENT TIMES POST ADMISSION.
[2024-11-15 19:54] VITALS: BP 121/68
[2024-11-15] MEDS ORDERED: HYDROcodone 5-APAP 325 TAB PO PRN (20:15)
[2024-11-16] VITALS (18 sets, daily range): BP systolic 103–144; BP diastolic 59–75
--- NOTE | 2024-11-16 06:19 | NUR ---
NOC SUMMARY- PT PAIN MANAGED WELL. PT HAS BEEN NPO SINCE [place]. PT HAS BEEN HAVING FREQUENT BM'S. PT INDEPENDANT TO BATHROOM. CALL LIGHT IN REACH.
[2024-11-16 09:39] LABS: Hematocrit 30.3 % (33.0-51.0); Hemoglobin 10.3 g/dL (11.5-16.0); Mean Corpuscular HGB 29.7 pg (26.0-34.0); Mean Corpuscular Volume 87 fL (80-100); Mean Platelet Volume 8.9 fL (9.1-12.4); Platelet Count 249 K/mm3 (150-400); RDW Coefficient Variation 16.4 % (11.7-14.2); RDW Standard Deviation 51.3 fL (35.1-46.3); Red Blood Cell Count 3.47 M/mm3 (3.80-5.20)
[2024-11-16 10:11] LABS: Bun/Creatinine Ratio 11.5 (12.0-20.0); Calcium, Blood 8.6 mg/dL (8.5-10.1); Creatinine, Blood 0.52 mg/dL (0.40-1.00); Potassium, Blood 2.9 mmol/L (3.5-5.5)
[2024-11-16] MEDS ORDERED: Potassium Chl 20MEQ/Water100ML 100 ML IV SCH (11:25)
[2024-11-16] MEDS ORDERED: Lactated Ringer's 1,000 ML IV SCH (12:05)
--- NOTE | 2024-11-16 13:01 | NUR ---
History, Chart, Medications and Allergies reviewed before start of procedure. Lungs clear T/O to Auscultation. Patient confirms NPO status and agrees with scheduled surgery. Pre-Op teaching done. Pt verbalizes understanding. Patient states colon prep results clear. Patient up to Ambulate independently. Gait steady.
[2024-11-16] MEDS ORDERED: Bupivacaine 0.5% HCl 5 MG/ML 30MLVIAL ONE (14:09)
[2024-11-16] MEDS ORDERED: Albumin (Human) 12.5gm/250ml 250 ML IV ONE ×2 (14:23→18:05)
[2024-11-16] MEDS ORDERED: Magnesium Sulfate 500 MG / ML 2ML Vial ONE (14:23)
[2024-11-16] MEDS ORDERED: propofoL 20 ML IV ONE (14:25)
[2024-11-16] MEDS ORDERED: Metoclopramide HCl 5MG / ML 2ML Vial ONE (14:25)
[2024-11-16] MEDS ORDERED: Rocuronium Bromide 10 MG/ML 5ML Injection IV ONE ×3 (14:25→17:18)
[2024-11-16] MEDS ORDERED: Lidocaine HCl 2% 20 ML MDV ONE ×2 (14:25→14:33)
[2024-11-16] MEDS ORDERED: Ondansetron HCl 2 MG / ML 2ML Vial ONE (14:25)
[2024-11-16] MEDS ORDERED: FentaNYL Citrate 50 MCG/ML 5 ML Injection ONE (14:34)
[2024-11-16] MEDS ORDERED: FentaNYL Citrate 50 MCG/ML 2 ML Injection IV PRN ×2 (16:05→16:10)
[2024-11-16] MEDS ORDERED: HYDROmorphone HCl/Pf 1MG SYR IV PRN ×2 (16:05→22:30)
[2024-11-16] MEDS ORDERED: Ondansetron HCl 2 MG / ML 2ML Vial IV PRN (16:05)
[2024-11-16] MEDS ORDERED: Metoclopramide HCl 5MG / ML 2ML Vial IV PRN (16:10)
[2024-11-16] MEDS ORDERED: Ampicillin Sod/Sulbactam Sod 3 GM in NS 100 ML IV ONE ×2 (17:55→20:00)
[2024-11-16] MEDS ORDERED: Tranexamic Acid 100 ML IV ONE (19:00)
[2024-11-16] MEDS ORDERED: Tranexamic Acid 1,000 MG/0.7% NaCl 100 ML BAG IV ONE (19:00)
[2024-11-16] MEDS ORDERED: HYDROmorphone HCl/Pf 1MG SYR ONE ×3 (19:07→23:02)
[2024-11-16] MEDS ORDERED: Sugammadex Sodium 200 MG/2ML SDV (100 MG/ML) ONE (19:09)
--- NOTE | 2024-11-16 19:16 | NUR ---
PT LEFT FOR PROCEDURE AT APPROX 1230. PT REMAINS IN SURGERY AT THIS TIME. REPORT GIVEN TO ONCOMING RN. PT HAD DENIED PAIN THROUGHOUT SHIFT AND INDEPENDENTLY AMBULATING IN HER ROOM.
[2024-11-16] MEDS ORDERED: FentaNYL Citrate 50 MCG/ML 2 ML Injection ONE (22:23)
[2024-11-16] MEDS ORDERED: HYDROcodone 5-APAP 325 TAB PO PRN (22:30)
[2024-11-16] MEDS ORDERED: Albuterol 2.5 MG/3 ML VIAL INH ONE (22:30)
[2024-11-17] VITALS (9 sets, daily range): BP systolic 111–139; BP diastolic 67–85
--- NOTE | 2024-11-17 04:08 | NUR ---
SHIFT SUMMARY BRUCE WAS ALERT AND FULLY ORIENTED WHEN SHE ARRIVED FROM PACU @ AROUND 2330 PT WAS PAINFUL UPON ARRIVAL. INSCISION SITES C/D/I, ABD TENDER, BT'S HYPOACTIVE PT FAMILY PRESENT ON PT RETURN. VSS. PAIN RESPONSIVE TO MEDS. PT DID BECOME NAUSEOUS, IMPROVED WITH WITH ZOFRAN. PT ON 3L O2 VIA NC ON ARRIVAL, TITRATED DOWN TO 2L. SATS HOLDING STEADY ABOVE 90%. NO ACUTE POST OP EVENTS. PT SENSATION SLOWLY RETURNING.
[2024-11-17 06:23] LABS: Hematocrit 26.9 % (33.0-51.0); Hemoglobin 8.9 g/dL (11.5-16.0); Mean Corpuscular HGB 29.7 pg (26.0-34.0); Mean Corpuscular HGB Conc 33.1 g/dL (31.5-36.5); Mean Corpuscular Volume 90 fL (80-100); Mean Platelet Volume 9.1 fL (9.1-12.4); Platelet Count 301 K/mm3 (150-400); RDW Coefficient Variation 17.2 % (11.7-14.2); White Blood Cell Count 26.32 K/mm3 (4.00-11.30)
[2024-11-17 06:53] LABS: Bun/Creatinine Ratio 13.2 (12.0-20.0); Calcium, Blood 7.8 mg/dL (8.5-10.1); Creatinine, Blood 0.61 mg/dL (0.40-1.00); Potassium, Blood 3.9 mmol/L (3.5-5.5)
[2024-11-17] MEDS ORDERED: LORazepam 2 MG/ML 1ML Injection IV PRN (07:30)
[2024-11-17] MEDS ORDERED: FentaNYL Citrate 50 MCG/ML 2 ML Injection IV PRN (07:30)
[2024-11-17] MEDS ORDERED: AMOX-CLAV 875-1 EAC5 PO (11:17)
[2024-11-17] MEDS ORDERED: ONDA4ODT MM (11:17)
[2024-11-17] MEDS ORDERED: MIRALAX1714 PO (11:18)
--- NOTE | 2024-11-17 16:52 | NUR ---
SHIFT SUMMARY S/P OPEN COLECTOMY. PT HAD X1 ANXIETY ATTACK THIS MORNING. ATIVAN EFFECTIVE. NO ANXIETY SINCE. LAP SITES + MIDLINE INCISION ARE CDI. COLOSTOMY WITH SMALL AMOUNT OF FLATUS PRESENT. STOMA PINK AND MOIST. PT CHANDLER SMALL CLEAR LIQS AND ADVANCING TO FULL LIQS FOR DINNER TONIGHT. UP TO CHAIR WITH 1 ASSIST. JACKSON PATENT. CATH CARE COMPLETE. IV ABX PER ORDERS. NORCO + FENTANYL FOR PAIN CONTROL. VSS. TELE ST IN THE 100-110S. FAMILY AT BEDSIDE FOR SUPPORT. USES CALL LIGHT APPRORIATELY.
[2024-11-17] MEDS ORDERED: Metoclopramide HCl 5MG / ML 2ML Vial IV PRN (19:45)
[2024-11-18 04:01] VITALS: BP 124/74
--- NOTE | 2024-11-18 04:04 | NUR ---
SHIFT SUMMARY BRUCE WAS ALERT AND FULLY ORIENTED ON ASSESSMENT. PT STILL PAINFUL, PAIN IS LESS LABILE THAN PREVIOUS NOC, PAIN RESPONSIVE TO MEDS. PT WITH NAUSEA THIS SHIFT, RESOLVED WITH REGLAN. JACKSON REMOVED THIS SHIFT. REDNESS TO MIDLINE INCISION PRESENT BUT REDUCED FROM END OF PREV NOC SHIFT. OSTOMY OUTPUTTING A GOOD AMOUNT OF DARK LIQUID, GAS PRESENT. STOMA LOOKS HEALTHY. TOLERATING DIET. TELE DC'D. NO ACUTE EVENTS TONIGHT. NO NOTED CHANGES TO PT CONDITION.
[2024-11-18 06:21] LABS: Hematocrit 23.9 % (33.0-51.0); Mean Corpuscular HGB 29.6 pg (26.0-34.0); Mean Corpuscular HGB Conc 33.5 g/dL (31.5-36.5); Mean Corpuscular Volume 89 fL (80-100); Mean Platelet Volume 9.1 fL (9.1-12.4); NRBC ABSOLUTE 0.03 K/mm3 (0.00-0.02); NRBC Auto 0.1 /100 WBC (0.0-0.2); Platelet Count 302 K/mm3 (150-400); RDW Coefficient Variation 17.5 % (11.7-14.2); RDW Standard Deviation 54.4 fL (35.1-46.3); White Blood Cell Count 43.76 K/mm3 (4.00-11.30)
[2024-11-18 06:50] LABS: Bun/Creatinine Ratio 13.1 (12.0-20.0); Calcium, Blood 7.9 mg/dL (8.5-10.1); Creatinine, Blood 0.53 mg/dL (0.40-1.00); Potassium, Blood 3.4 mmol/L (3.5-5.5)
[2024-11-18 07:11] VITALS: BP 117/72
[2024-11-18] MEDS ORDERED: Potassium Chloride 20 MEQ TabCR PO ONE (08:25)
[2024-11-18 08:37] LABS: Percent Saturation 12.3 % (15.0-50.0)
[2024-11-18] MEDS ORDERED: MetroNIDAZOLE 500MG/NS 100 ml 100 ML IV SCH (08:39)
[2024-11-18] MEDS ORDERED: Lactated Ringer's 1,000 ML IV SCH (08:50)
[2024-11-18] MEDS ORDERED: Lactated Ringer's 1,000 ML IV ONE (08:50)
[2024-11-18] MEDS ORDERED: Enoxaparin 40 MG/0.4 ML SYR SC SCH (09:00)
[2024-11-18 10:49] LABS: Hematocrit 22.8 % (33.0-51.0); Hemoglobin 7.8 g/dL (11.5-16.0); Mean Corpuscular HGB 30.1 pg (26.0-34.0); Mean Corpuscular HGB Conc 34.2 g/dL (31.5-36.5); Mean Corpuscular Volume 88 fL (80-100); Platelet Count 299 K/mm3 (150-400); RDW Coefficient Variation 17.3 % (11.7-14.2); RDW Standard Deviation 53.1 fL (35.1-46.3); Red Blood Cell Count 2.59 M/mm3 (3.80-5.20); White Blood Cell Count 42.31 K/mm3 (4.00-11.30)
[2024-11-18 11:12] LABS: BASOPHILS PERCENT MAN 0 % (0-2); EOSINOPHILS PERCENT MAN 0 % (0-6); LYMPHOCYTES ABSOLUTE MAN 2.96 K/mm3 (0.84-5.20); LYMPHOCYTES PERCENT MAN 7 % (21-46); MONOCYTES ABSOLUTE MAN 1.26 K/mm3 (0.16-1.47); MONOCYTES PERCENT MAN 3 % (4-13); NEUTROPHILS ABSOLUTE MAN 38.07 K/mm3 (1.96-9.15); SEG NEUTROPHILS PERCENT MAN 90 % (41-73); TOTAL CELLS COUNTED 100
[2024-11-18 11:14] LABS: Anion Gap 8 mmol/L (3-11); Blood Urea Nitrogen 6 mg/dL (8-24); Bun/Creatinine Ratio 12.1 (12.0-20.0); C-Reactive Protein, High Sens. >190.000 mg/L (0.000-3.000); CO2, Blood 26 mmol/L (21-32); Calcium, Blood 7.7 mg/dL (8.5-10.1); Chloride, Blood 101 mmol/L (98-108); Creatinine, Blood 0.49 mg/dL (0.40-1.00); Glomerular Filtration Rate 107 (60-); Glucose, Blood 138 mg/dL (70-99); Potassium, Blood 3.3 mmol/L (3.5-5.5); Sodium, Blood 132 mmol/L (136-145)
[2024-11-18] MEDS ORDERED: Piperacillin/Tazobactam Sod 3.375 GM in NS 100 ML IV SCH (12:00)
[2024-11-18] MEDS ORDERED: LORazepam 1 MG Tab PO PRN (12:30)
[2024-11-18] MEDS ORDERED: Iron Dextran 50 MG / ML 2ML Vial IV ONE (14:35)
[2024-11-18 15:28] VITALS: BP 101/60
--- NOTE | 2024-11-18 15:31 | NUR ---
RN ADMINISTERED TEST DOSE OF IRON DEXTRAN. WILL MONITOR FOR SIGNS OF ADVERSE REACTION AND MONITOR VITALS Q 20 MINUTES FOR THE NEXT HOUR.
[2024-11-18 15:54] VITALS: BP 106/60
[2024-11-18] MEDS ORDERED: Iron Dextran 975 MG in NS 250 ML IV ONE (16:00)
--- NOTE | 2024-11-18 18:01 | NUR ---
LATE ENTRY: 1600 - PT HAS VAGINAL DISCHARGE IT IS BLOOD TINGED. PT C/O ITCHING TO VAG LABIA. RN CALLED DR. DALAL TO NOTIFY. NO NEW ORDERS AT THIS TIME BECAUSE OF THE COLOVAGINAL FISTULA AND RECENT SURGERY - PT MAY EXPERIENCE VAG DISCHARGE FOR A FEW DAYS. NURSING TO CONTINUE TO MONITOR. RN EDUCATED PT ON GOOD PERINEAL HYGEINE AND TO MONITOR FOR WHITE DISCHARGE OR SX OF VAG YEAST INFECTION.
[2024-11-18 19:53] VITALS: BP 113/61
--- NOTE | 2024-11-18 20:02 | NUR ---
BRUCE IS a&O X4. ROOM AIR. POWERGLIDE TO LEFT UPPER ARM. IV ABX ADMINISTERED. POD#1 AFTER A LAP SIGMOID COLECTOMY WITH OPEN RESECTION. ILEOSTOMY DRAINING GREEN LIQUID STOOL. 4 LAP SITES ARE SECURED WITH WOUND GLUE, MIDLINE INCISION. NO REDNESS OR EXUDATE. BOWEL TONES HYPERACTIVE. PT WITH NAUSEA/VOMITING THIS SHIFT. QUITE PAINFUL TO ABD. PAIN IS RELIEVED WITH PRN FENTANYL, NORCO, AND ZOFRAN. PT BEGAN TO HAVE VAG DISCHARGE THIS SHIFT - BROWN TO YELLOW/BROWN. DR. DALAL NOTIFIED, NO NEW ORDERS. CONTINUE TO MONITOR. IRON DEXTRAN GIVEN, PT TOLERATED MEDICATION WELL WITH NO ADVERSE REACTIONS. CONTINENT OF URINE. SBA TO BATHROOM. VOIDING SMALL FREQUENT VOIDS. ABD CT SCAN TODAY SHOWED MILD GAS/AIR IN ABD THAT IS NOT INCONSISTENT WITH RECENT SURGERY. AFEBRILE. RN GAVE REPORT TO NIGHT NURSE.
[2024-11-19 03:17] VITALS: BP 121/57
[2024-11-19 06:09] LABS: BASOPHILS ABSOLUTE AUTO 0.08 K/mm3 (0.00-0.23); BASOPHILS PERCENT AUTO 0 % (0-2); EOSINOPHILS PERCENT AUTO 0 % (0-6); Hematocrit 23.2 % (33.0-51.0); Hemoglobin 7.8 g/dL (11.5-16.0); IMMATURE GRAN ABSOLUTE AUTO 1.14 K/mm3 (0.00-0.10); IMMATURE GRAN PERCENT AUTO 4 % (0-1); LYMPHOCYTES ABSOLUTE AUTO 2.88 K/mm3 (0.84-5.20); LYMPHOCYTES PERCENT AUTO 9 % (21-46); MONOCYTES ABSOLUTE AUTO 1.48 K/mm3 (0.16-1.47); MONOCYTES PERCENT AUTO 5 % (4-13); Mean Corpuscular HGB Conc 33.6 g/dL (31.5-36.5); Mean Corpuscular Volume 89 fL (80-100); Mean Platelet Volume 8.9 fL (9.1-12.4); NEUTROPHILS ABSOLUTE AUTO 26.23 K/mm3 (1.96-9.15); NEUTROPHILS PERCENT AUTO 82 % (41-73); NRBC ABSOLUTE 0.02 K/mm3 (0.00-0.02); NRBC Auto 0.1 /100 WBC (0.0-0.2); Platelet Count 323 K/mm3 (150-400); RDW Coefficient Variation 17.7 % (11.7-14.2); RDW Standard Deviation 55.4 fL (35.1-46.3); White Blood Cell Count 31.81 K/mm3 (4.00-11.30)
[2024-11-19] MEDS ORDERED: Pantoprazole Sodium 40 MG Tab PO SCH (06:20)
--- NOTE | 2024-11-19 06:24 | NUR ---
PTS RN REQESTED PT TO HAVE PROTONIX FOR C/O INCREASING EPIGASTRIC PAIN.I CALLED DR CASH AND ADVISED OF ABOVE. RECEIVED ORDER FOR PROTONIX.
[2024-11-19 06:28] LABS: Anion Gap 10 mmol/L (3-11); Blood Urea Nitrogen 5 mg/dL (8-24); Bun/Creatinine Ratio 9.3 (12.0-20.0); CO2, Blood 26 mmol/L (21-32); Calcium, Blood 8.3 mg/dL (8.5-10.1); Chloride, Blood 99 mmol/L (98-108); Creatinine, Blood 0.54 mg/dL (0.40-1.00); Glomerular Filtration Rate 105 (60-); Glucose, Blood 134 mg/dL (70-99); Phosphorus, Blood 2.2 mg/dL (2.5-4.9); Potassium, Blood 2.9 mmol/L (3.5-5.5); Sodium, Blood 132 mmol/L (136-145)
[2024-11-19 07:15] VITALS: BP 127/71
--- NOTE | 2024-11-19 07:16 | NUR ---
PT MEDICATED FOR PAIN Q2 WITH NORCO AND FENTANLY. PT STATES PAIN IS RELIEVED BUT RETURNS AFTER AMBULATING. PAIN AT ABDOMEN AND IS TENDER PT AMBULATING TO THE BATHROOM WITH WALKER SBA. EDUCATED ON EMPTYING ILEOSTOMY. PT STATES SHE IS NOT READY TO EMPTY IT AT THE MOMENT. PT STILL HAS YELLOWISH /BROWN VAGINAL DISCHARGE. ILEOSTOMY PUTTING OUT GREEN LIQUID STOOL. HEMOGLOBIN REMAINS AT 7.8 THIS AM.
[2024-11-19] MEDS ORDERED: Potassium Phosphate Dibasic 30 MM in Dextrose 5% 500 ML IV STA (08:07)
[2024-11-19] MEDS ORDERED: Psyllium 1 EA Pack PO SCH (09:00)
[2024-11-19] MEDS ORDERED: Calcium Carbonate 500 MG Tab Chew PO PRN (13:00)
[2024-11-19] MEDS ORDERED: Bismuth Subsalicylate 262 MG Chew PO PRN (13:00)
[2024-11-19 15:25] VITALS: BP 127/65
--- NOTE | 2024-11-19 18:08 | NUR ---
SHIFT SUMMARY NO ACUTE CHANGES THIS SHIFT. VSS. AXO4. ON RA. AMBULATORY, THOUGH, PT IS BECOMING WEAKER DAY PROGRESSES, NOTED TO BE USING WALKER TO AMBULATE TO BATHROOM TOWARDS END OF THIST, THIS WAS NOT THE CASE AT THE BEGINNING OF SHIFT. PT C/O PERSISTENT PAIN AND NAUSEA T/O SHIFT, MEDS PER EMAR HELPFUL WITH MANAGEMENT. EMESIS IS OFTEN <125MLS - DARK BROWN/YELLOW. ILEOSTOMY WITH LITTLE OUTPUT TODAY BUT PT WITH LITTLE PO INTAKE. PT TO BATHROOM OFTEN FOR CONTINUED BROWN/YELLOW VAGINAL DC PER PT, THIS IS AN ONGOING ISSUE, IS LESSENING SHIFT HAS PROCEEDED. LAPRASCOPIC SITES AND MIDLINE SITE STABLE, GLUE CDI. OTHERWISE, PT RESTING OFF AND ON TODAY. RECEIVING LARGE AMOUNT OF IV ABX. KPHOS REPLACED TODAY. PT USING CALL LIGHT APPROPRIATELY.
[2024-11-19 20:08] VITALS: BP 125/74
[2024-11-20 03:55] VITALS: BP 128/74
--- NOTE | 2024-11-20 04:51 | NUR ---
CLAY DIGGER SUMMARY PT HAS DONE PRETTY WELL TONIGHT. MEDICATED FOR NAUSEA TWICE THROUGH THE NIGHT AND ABD PAIN HAS BEEN WELL MANAGED WITH 2 TABS NORCO Q4H. PT HAS DRANK SMALL AMOUNTS OF WATER BUT HAS STILL BEEN UNABLE TO TOLERATE ANY SIGNIFICANT PO INTAKE. ILEOSTOMY WILL SMALL AMOUNT OF DARK BROWN/GREEN LIQUID STOOL THAT LOOKS SIMILAR TO VAGINAL DISCHARGE. OSTOMY EMPTIED FOR APPROXIMATELY 50 ML OF LIQUID. PT INDEPENDENT TO BATHROOM. AAOX4 AND PLEASANT, MAKES NEEDS KNOWN. VSS, WCTM.
[2024-11-20 05:37] LABS: Hematocrit 24.5 % (33.0-51.0); Hemoglobin 8.3 g/dL (11.5-16.0); Mean Corpuscular HGB 29.7 pg (26.0-34.0); Mean Corpuscular HGB Conc 33.9 g/dL (31.5-36.5); Mean Corpuscular Volume 88 fL (80-100); Mean Platelet Volume 8.8 fL (9.1-12.4); NRBC ABSOLUTE 0.14 K/mm3 (0.00-0.02); NRBC Auto 0.4 /100 WBC (0.0-0.2); Platelet Count 377 K/mm3 (150-400); RDW Coefficient Variation 17.9 % (11.7-14.2); RDW Standard Deviation 54.8 fL (35.1-46.3); Red Blood Cell Count 2.79 M/mm3 (3.80-5.20); White Blood Cell Count 38.63 K/mm3 (4.00-11.30)
[2024-11-20 05:58] LABS: Bun/Creatinine Ratio 8.6 (12.0-20.0); Calcium, Blood 8.4 mg/dL (8.5-10.1); Creatinine, Blood 0.58 mg/dL (0.40-1.00); Magnesium, Blood 1.5 mg/dL (1.6-2.4); Phosphorus, Blood 3.6 mg/dL (2.5-4.9)
[2024-11-20] MEDS ORDERED: D5W-1/2NS KCl 20mEq 1,000 ML IV SCH (07:10)
[2024-11-20] MEDS ORDERED: Lactated Ringer's 1,000 ML IV SCH (07:10)
[2024-11-20] MEDS ORDERED: Lactated Ringer's 1,000 ML IV ONE (07:10)
[2024-11-20 07:29] VITALS: BP 115/68
[2024-11-20] MEDS ORDERED: Mag Sulfate 1 GM/D5% 100ML 100 ML IV STA (07:51)
--- NOTE | 2024-11-20 14:23 | NUR ---
DR DALAL PHYSICIAN TO ROOM, ASSESSED PT. CONCERNS NOTED REGARDING VAGINAL OUTPUT COLORATION/CONSISTENCY. PLAN FOR ABD CT WITH PO/MI CONTRAST TODAY. PT NOW NPO PER ORDERS.
[2024-11-20 15:15] VITALS: BP 113/61
--- NOTE | 2024-11-20 17:15 | NUR ---
PT TO CT AT ~1700
--- NOTE | 2024-11-20 17:15 | NUR ---
SHIFT SUMMARY PT AXO4. VSS. RECEIVING IV ABX T/O SHIFT, RECEIVED LR BOLUS X1L, AND CONTINUOUS FLUIDS. PAIN MUCH MORE CONTROLLED AEB DEREASED PAIN PILL USE AND ONLY ONE DOSE OF IV PAIN MEDS POST SHOWERING. ILEOSTOMY OUTPUT SLIGHTLY INCREASED TODAY, HAVE HAD TO EMPTY TWICE THIS SHIFT. VAGINAL OUTPUT HAS CONTINUED. DR DALAL ASSESSED, PT NOW NPO, AWAITING CT ABD/PELVIS RESULTS, AND THEN WILL RECEIVE FURTHER DIRECTION FROM PROVIDER.
[2024-11-20 19:13] VITALS: BP 100/54
[2024-11-21 04:12] VITALS: BP 104/67
[2024-11-21 05:01] LABS: Hematocrit 25.3 % (33.0-51.0); Hemoglobin 8.4 g/dL (11.5-16.0); Mean Corpuscular HGB 29.5 pg (26.0-34.0); Mean Corpuscular HGB Conc 33.2 g/dL (31.5-36.5); Mean Corpuscular Volume 89 fL (80-100); Mean Platelet Volume 8.5 fL (9.1-12.4); NRBC Auto 0.3 /100 WBC (0.0-0.2); Platelet Count 398 K/mm3 (150-400); RDW Coefficient Variation 19.5 % (11.7-14.2); RDW Standard Deviation 57.1 fL (35.1-46.3); Red Blood Cell Count 2.85 M/mm3 (3.80-5.20); White Blood Cell Count 30.82 K/mm3 (4.00-11.30)
[2024-11-21 05:40] LABS: Bun/Creatinine Ratio 7.5 (12.0-20.0); Calcium, Blood 8.2 mg/dL (8.5-10.1); Creatinine, Blood 0.53 mg/dL (0.40-1.00); Magnesium, Blood 1.8 mg/dL (1.6-2.4); Potassium, Blood 3.1 mmol/L (3.5-5.5)
--- NOTE | 2024-11-21 06:21 | NUR ---
DIRECT CUSTOMER SERVICE REPRESENTATIVE SUMMARY NO ACUTE CHANGES THIS SHIFT. PT CONTINUES TO HAVE BROWN/GREEN VAGINAL DISCHARGE THAT IS UNCHANGED FROM THE LAST FEW DAYS. PAIN MANAGED WITH IV DILAUDID AND NORCO. DR DALAL HAD THIS RN REMOVE RED ROBBIN DRAIN FROM OSTOMY SITE. MINIMAL OUTPUT INTO OSTOMY BAG HOWEVER MORE GAS NOTED AND BAG HAD TO BE BURPED SEVERAL TIMES. PT ON FULL LIQUID DIET AND ATTEMPTED TO EAT ICE CREAM BUT IT DID NOT SETTLE WELL WITH HER STOMACH. VITALS STABLE, WILL CONTINUE TO MONITOR.
[2024-11-21 07:57] VITALS: BP 102/61
[2024-11-21] MEDS ORDERED: Potassium Phosphate Dibasic 30 MM in Dextrose 5% 500 ML IV STA (08:03)
[2024-11-21] MEDS ORDERED: Lactated Ringer's 1,000 ML IV ONE (08:05)
--- NOTE | 2024-11-21 09:13 | NUR ---
RECTAL TUBE PLACED IN VAGINA WITH JULIO CESAR Brown RN PER DR DALAL ORDERS. FILLED WITH 40MLS TO BALLOON - PT COMFORTABLE WITH THIS AMOUNT.
[2024-11-21 15:14] VITALS: BP 109/66
--- NOTE | 2024-11-21 17:42 | NUR ---
SHIFT SUMMARY PT AAXO4. VSS. REQUIRING MORE PAIN MEDS THAN YESTERDAY. ABX REGIMEN T/O SHIFT ALONGSIDE KPHOS REPLACEMENT. LEG EDEMA RELAYED TO DR CORMIER, PHYSICIAN STATES HE WILL REVIEW, PT +2 CURRENTLY BILATERALLY. PT TOLERATING CLEAR TO ALMOST FULL LIQUIDS TODAY, RARE REPORTED EPISODES OF NAUSEA. PER NIX, RECTAL TUBE PLACED IN VAGINA TO CATCH SUCCOUS OUTPUT FOR ACCURATE MEASUREMENTS, UPON INITIAL PLACEMENT, UNABLE TO DRAIN, GRADUALLY DECREASED BALLON INFLATION AND THEN IRRIGATED, OUTPUT NOTED TO BE ~100MLS AFTER THIS, REMAINS GREEN/BROWN OUTPUT. PT VOIDING OFTEN. ILEOSTOMY OUTPUT INCREASING, STILL MINIMAL OUTPUT. NIX IN ROOM WHILE IRRIGATING RECTAL TUBE, STATES EXPECTATION OF DECREASING DRAINAGE AMOUNT. LAP SITES AND MIDLINE SIGHT CDI. PT REMAINS SBA WITH FWW. FAMILY AT BEDSIDE AT DIFFERENT POINTS T/O SHIFT. CALL LIGHT WITHIN REACH.
[2024-11-21 20:23] VITALS: BP 114/58
[2024-11-22 03:10] VITALS: BP 108/64
[2024-11-22 06:11] LABS: Bun/Creatinine Ratio 3.8 (12.0-20.0); Calcium, Blood 8.2 mg/dL (8.5-10.1); Creatinine, Blood 0.53 mg/dL (0.40-1.00); Potassium, Blood 3.5 mmol/L (3.5-5.5)
--- NOTE | 2024-11-22 06:35 | NUR ---
SHIFT SUMMARY PT HAS RESTED OFF AND ON T/O THE SHIFT. PAIN MANANGED PER EMAR. 100 CC WAS DRAINED FROM RECTAL TUBE THIS SHIFT. OUTPUT BROWN. MEDICATED FOR NAUSEA X1 THIS SHIFT AT THE BEGINNING OF THE SHIFT. PT HAD NO MORE NAUSEA FOR THE REMAINDER OF SHIFT, HAS BEEN ABLE TO TOLERATE FLUIDS. IV ANTIBIOTICS CONTINUED. PT AMBULATES WELL WITH 1 PA. VITALS STABLE. PLAN OF CARE UNCHANGED. BED IN LOWEST POSITION, CALL LIGHT WITHIN REACH.
[2024-11-22 07:27] VITALS: BP 101/55
[2024-11-22 10:07] LABS: Hematocrit 26.4 % (33.0-51.0); Hemoglobin 8.6 g/dL (11.5-16.0); Mean Corpuscular HGB 30.2 pg (26.0-34.0); Mean Corpuscular HGB Conc 32.6 g/dL (31.5-36.5); Mean Corpuscular Volume 93 fL (80-100); Mean Platelet Volume 8.4 fL (9.1-12.4); NRBC ABSOLUTE 0.07 K/mm3 (0.00-0.02); NRBC Auto 0.3 /100 WBC (0.0-0.2); Platelet Count 381 K/mm3 (150-400); RDW Coefficient Variation 20.9 % (11.7-14.2); RDW Standard Deviation 60.2 fL (35.1-46.3); Red Blood Cell Count 2.85 M/mm3 (3.80-5.20); White Blood Cell Count 27.62 K/mm3 (4.00-11.30)
[2024-11-22 10:30] LABS: BAND PERCENT MAN 2 % (0-8); BASOPHILS PERCENT MAN 0 % (0-2); EOSINOPHILS PERCENT MAN 0 % (0-6); LYMPHOCYTES ABSOLUTE MAN 1.65 K/mm3 (0.84-5.20); LYMPHOCYTES PERCENT MAN 6 % (21-46); METAMYELOCYTE ABSOLUTE MAN 0.27 K/mm3 (0.00-0.00); METAMYELOCYTE PERCENT MAN 1 % (0-0); MONOCYTES ABSOLUTE MAN 3.03 K/mm3 (0.16-1.47); MONOCYTES PERCENT MAN 11 % (4-13); NEUTROPHILS ABSOLUTE MAN 22.64 K/mm3 (1.96-9.15); SEG NEUTROPHILS PERCENT MAN 80 % (41-73); TOTAL CELLS COUNTED 100
[2024-11-22 14:50] VITALS: BP 119/64
[2024-11-22 19:18] VITALS: BP 111/63
[2024-11-22] MEDS ORDERED: Psyllium 1 EA Pack PO SCH (21:00)
[2024-11-23] VITALS (20 sets, daily range): BP systolic 106–144; BP diastolic 57–88
--- NOTE | 2024-11-23 05:48 | NUR ---
SHIFT SUMMARY PT HAS RESTED T/O THE NIGHT. FREQUENT PRNS FOR PAIN, PAIN MANAGED PER EMAR. RECTAL TUBE DRAINED 100CC THIS SHIFT. ILLEOSTOMY PRODUCING STOOL. NO NAUSEA, PT TOLERATING PO INTAKE. SURIGICAL SITE WNL. IV ANTIBITOICS CONTINUED. PLAN OF CARE REMAINS UNCHANGED. BED IN LOWEST POSITION, CALL LIGHT WITHIN REACH.
--- NOTE | 2024-11-23 07:50 | NUR ---
ASSUMPTION OF CARE: THIS RN ASSUMED CARE OF PATIENT. AWAKE DURING SHIFT CHANGE REPORT, HAVING JUST GOTTEN UP TO USE RESTROOM. BREATHING SHARP SECONDARY TO PAIN; REQUESTING PAIN MEDS. OSTOMY AND RECTAL TUBES PATENT AND DRAINING BROWN LIQUID TO GRAVITY. REQUESTING JULIO CESAR TO REINSERT RECTAL TUBE SECONDARY TO DISCOMFORT. BED IN LOWEST POSITION. CALL LIGHT WITHIN REACH. ACUTE NEEDS MET.
[2024-11-23] MEDS ORDERED: HYDROcodone 7.5-APAP 325 TAB PO PRN (08:20)
[2024-11-23] MEDS ORDERED: Arginine/Glutamine/Calcium Hmb 1 Packet PO SCH (09:00)
[2024-11-23 09:42] LABS: Bun/Creatinine Ratio 6.5 (12.0-20.0); Calcium, Blood 7.9 mg/dL (8.5-10.1); Creatinine, Blood 0.47 mg/dL (0.40-1.00); Magnesium, Blood 1.8 mg/dL (1.6-2.4); Phosphorus, Blood 1.9 mg/dL (2.5-4.9); Potassium, Blood 3.2 mmol/L (3.5-5.5)
--- NOTE | 2024-11-23 10:07 | NUR ---
PATIENT CALLED c C/O "STUFF SQUIRTING FROM MY INCISION". GREENISH BROWN LIQUID, SIMILAR TO THAT DRAINING TO OSTOMY AND RECTAL TUBE, SEEN OOZING FROM MIDLINE INCISION. PROVIDED c CLEANSING WIPES, ASSISTED c CLEANSING. CHARGE, ALEXX, ASSISTED c WOUND CLEANSER AND DRESSING AND CALL TO DR. DALAL.
[2024-11-23] MEDS ORDERED: Lactated Ringer's 1,000 ML IV SCH (11:35)
--- NOTE | 2024-11-23 11:41 | NUR ---
PT TRANSPORTED TO [facility] VIA BED. AGREES WITH PLANNED SURGERY. Pre-Op teaching done. Pt verbalizes understanding. PT HAD FEW BITES OFF EGGS, ANDORRAN TOAST AND MILK AT APPOX [phone] THIS AM, DR. DALAL AWARE.
[2024-11-23] MEDS ORDERED: Sugammadex Sodium 200 MG/2ML SDV (100 MG/ML) ONE (12:10)
[2024-11-23] MEDS ORDERED: Midazolam HCl 1MG / ML 2ML Vial ONE (12:10)
[2024-11-23] MEDS ORDERED: propofoL 20 ML IV ONE (12:10)
[2024-11-23] MEDS ORDERED: HYDROmorphone HCl/Pf 1MG SYR ONE ×2 (12:10→16:06)
[2024-11-23] MEDS ORDERED: FentaNYL Citrate 50 MCG/ML 2 ML Injection ONE (12:10)
[2024-11-23] MEDS ORDERED: Dexamethasone Sod Phos 10 MG/ML 1ML VIAL ONE (12:12)
[2024-11-23] MEDS ORDERED: Ondansetron HCl 2 MG / ML 2ML Vial ONE (12:12)
[2024-11-23] MEDS ORDERED: Rocuronium Bromide 10 MG/ML 5ML Injection IV ONE (12:13)
[2024-11-23] MEDS ORDERED: Vasopressin 20 UNITS/ML 1ML Vial ONE (12:13)
[2024-11-23] MEDS ORDERED: Phenylephrine HCl 100 MCG/ML-NS 10MLSYR (1MG/10ML) ONE (12:13)
[2024-11-23] MEDS ORDERED: ePHEDrine Sulfate 50 MG/ML 1ML Injection ONE (12:14)
[2024-11-23] MEDS ORDERED: SuccINYLCHOLINE Chloride 100 MG/5 ML 5MLSYR ONE (12:15)
--- NOTE | 2024-11-23 12:15 | NUR ---
DR. DENISE (ANESTHESIA) AWERE OF BREAKFAST THAT WAS EATEN.
[2024-11-23] MEDS ORDERED: Estradiol Vag Cream 0.1 MG/G 42.5 GM Tube VAG ONE (14:50)
--- NOTE | 2024-11-23 15:02 | NUR ---
11/23/24 1502 Sharif Zaman ESTADIOL VAGINAL CREAM APPLIED TO VAG PACKING AND PACKED IN VAGINA BY DR. MANZANO
[2024-11-23] MEDS ORDERED: D5W-1/2NS KCl 20mEq 1,000 ML IV SCH (16:00)
[2024-11-23] MEDS ORDERED: Potassium Phosphate Dibasic 30 MM in NS 500 ML IV SCH (16:30)
--- NOTE | 2024-11-23 17:00 | NUR ---
PATIENT RETURNED TO SURGICAL FLOOR FOLLOWING SMALL BOWEL REPAIR AND VAGINAL FISTULA REPAIR. SPO2 88%-92% RA. PLACED 2LPM/NC TO MAINTAIN >92%. PATIENT DROWSY, BUT ALERT. REQUESTING PAIN MEDS.
--- NOTE | 2024-11-23 19:13 | NUR ---
END OF SHIFT SUMMARY: A&Ox4. PLEASANT AND COOPERATIVE WITH CARE. CALLS EXCESSIVELY, PARTICULARLY WHEN ANXIETY IS HIGH. REPORTS IMPROVEMENT IN ANXIETY c PO ATIVAN. ADVOCATES NEEDS EFFECTIVELY. MAINTAINING SPO2 >92% ON SPOT CHECK c 2LPM/NC INTERMITTENTLY D/T NARCOTIC USE. BACK TO OR TODAY FOR SMALL BOWEL REPAIR AND VAGINAL FISTULA REPAIR AFTER NOTED TO BE HAVING DISCHARGE THROUGH SUTURE LINE C/W DRAINAGE IN OSTOMY BAG. MIDLINE CHAS IN PLACE WITH SLIGHT SHADOWING. COMPA DRAIN RUQ PATENT AND DRAINING SEROSANGUINEOUS FLUID. JACSKON PLACED IN OR; PATENT AND DRAINING YELLOW URINE TO GRAVITY. C/O FEELING LIKE SHE NEEDS TO VOID; LIKELY D/T VAGINAL PACKING PRESSING AGAINST URETHRA. ENCOURAGED REPOSITIONING, BUT SHE IS APPREHENSIVE FOR FEAR OF PAIN. NPO x CHIPS AND SIPS. PO MEDS OKAY. POWERGLIDE TO LUE PATENT c KVO BUT DOES NOT DRAW. BED IN LOWEST POSITION, CALL LIGHT WITHIN REACH, ALL NEEDS MET. REPORT TO ONCOMING NURSE.
[2024-11-24 04:47] VITALS: BP 105/67
[2024-11-24 04:51] LABS: Mean Corpuscular HGB 30.2 pg (26.0-34.0); Mean Corpuscular Volume 97 fL (80-100); NRBC ABSOLUTE 0.04 K/mm3 (0.00-0.02); NRBC Auto 0.1 /100 WBC (0.0-0.2); Platelet Count 383 K/mm3 (150-400); RDW Coefficient Variation 22.5 % (11.7-14.2); RDW Standard Deviation 75.7 fL (35.1-46.3); Red Blood Cell Count 2.98 M/mm3 (3.80-5.20); White Blood Cell Count 29.79 K/mm3 (4.00-11.30)
[2024-11-24 05:13] LABS: Magnesium, Blood 1.7 mg/dL (1.6-2.4)
[2024-11-24 05:14] LABS: BAND PERCENT MAN 9 % (0-8); BASOPHILS PERCENT MAN 0 % (0-2); EOSINOPHILS PERCENT MAN 0 % (0-6); LYMPHOCYTES ABSOLUTE MAN 1.78 K/mm3 (0.84-5.20); LYMPHOCYTES PERCENT MAN 6 % (21-46); MONOCYTES ABSOLUTE MAN 0.89 K/mm3 (0.16-1.47); MONOCYTES PERCENT MAN 3 % (4-13); MYELOCYTE ABSOLUTE MAN 0.59 K/mm3 (0.00-0.00); MYELOCYTE PERCENT MAN 2 % (0-0); NEUTROPHILS ABSOLUTE MAN 26.51 K/mm3 (1.96-9.15); SEG NEUTROPHILS PERCENT MAN 80 % (41-73); TOTAL CELLS COUNTED 100
[2024-11-24 05:20] LABS: Alanine Aminotransfer (ALT/SGP 17 U/L (12-78); Albumin, Blood 1.5 g/dL (3.4-5.0); Albumin/Globulin Ratio 0.5 (0.8-1.8); Alk Phos 171 U/L (50-136); Anion Gap 11 mmol/L (3-11); Aspartate Aminotrans (AST/SGOT 26 U/L (12-37); Bilirubin, Total 0.4 mg/dL (0.1-1.0); Blood Urea Nitrogen 6 mg/dL (8-24); Bun/Creatinine Ratio 13.3 (12.0-20.0); CO2, Blood 24 mmol/L (21-32); Calcium, Blood 7.7 mg/dL (8.5-10.1); Chloride, Blood 103 mmol/L (98-108); Creatinine, Blood 0.45 mg/dL (0.40-1.00); Globulin, Blood 2.9 g/dL (2.2-4.0); Glomerular Filtration Rate 109 (60-); Glucose, Blood 109 mg/dL (70-99); Phosphorus, Blood 5.1 mg/dL (2.5-4.9); Potassium, Blood 4.7 mmol/L (3.5-5.5); Sodium, Blood 133 mmol/L (136-145); Total Protein, Blood 4.4 g/dL (6.4-8.2); Triglycerides 85 mg/dL (30-160)
--- NOTE | 2024-11-24 05:44 | NUR ---
SHIFT SUMMARY BRUCE WAS ALERT AND FULLY ORIENTED ON ASSESSMENT. PAIN MODERATELY WELL CONTROLLED. MIDLINE CHAS C/D/I WITH SOME SMALL AREAS OF SHADOWING. COMPA DRAINING CLEAR/RED SS FLUID. NO FLATUS OR OUTPUT TO OSTOMY AT THIS TIME. YELLOW URINE WITH GOOD OUTPUT TO JACKSON. NO VAGINAL DISCHARGE NOTED. VSS, NO ACUTE EVENTS THIS SHIFT.
[2024-11-24 08:09] VITALS: BP 126/78
[2024-11-24 14:07] VITALS: BP 107/68
[2024-11-24] MEDS ORDERED: [UNRECOGNIZED DRUG - NUTRITION] IV SCH (17:00)
[2024-11-24] MEDS ORDERED: TPN Consult Notification XX ONE (17:00)
--- NOTE | 2024-11-24 18:36 | NUR ---
SHIFT SUMMARY POD1 FOR EX LAP AND FUSTULA CLOSEURE. MIDLINE CHAS WITH S/S DIME SIZE DRNG. COMPA IN PLACE WITH S/S OUT PUT. OSTOMY WITH NO OUTPUT YET. STOMA IS BEEFY AND PINK. PAIN MANAGED PER EMAR. JACKSON IN PLACE TO GRAVITY. VSS. NPO AT THIS TIME AWAITING RETURN OF BOWEL FUNCTION. CALL LIGHT IN REACH.
[2024-11-24 19:10] VITALS: BP 98/58
[2024-11-25] MEDS ORDERED: Ondansetron HCl 2 MG / ML 2ML Vial IV ONE (01:50)
[2024-11-25 04:35] VITALS: BP 128/69
[2024-11-25] MEDS ORDERED: Benzocaine Oral Spray 0.5ML UD MT ONE (04:55)
[2024-11-25 07:14] VITALS: BP 108/62
[2024-11-25 09:43] LABS: Hematocrit 26.3 % (33.0-51.0); Hemoglobin 8.4 g/dL (11.5-16.0); Mean Corpuscular HGB 30.3 pg (26.0-34.0); Mean Corpuscular HGB Conc 31.9 g/dL (31.5-36.5); Mean Corpuscular Volume 95 fL (80-100); Mean Platelet Volume 8.8 fL (9.1-12.4); NRBC ABSOLUTE 0.07 K/mm3 (0.00-0.02); NRBC Auto 0.3 /100 WBC (0.0-0.2); Platelet Count 377 K/mm3 (150-400); RDW Coefficient Variation 21.4 % (11.7-14.2); RDW Standard Deviation 72.9 fL (35.1-46.3); Red Blood Cell Count 2.77 M/mm3 (3.80-5.20); White Blood Cell Count 25.59 K/mm3 (4.00-11.30)
[2024-11-25 10:10] LABS: Albumin, Blood 1.7 g/dL (3.4-5.0); Albumin/Globulin Ratio 0.5 (0.8-1.8); Bilirubin, Total 0.3 mg/dL (0.1-1.0); Bun/Creatinine Ratio 18.6 (12.0-20.0); Calcium, Blood 8.4 mg/dL (8.5-10.1); Creatinine, Blood 0.48 mg/dL (0.40-1.00); Globulin, Blood 3.1 g/dL (2.2-4.0); Potassium, Blood 3.9 mmol/L (3.5-5.5); Total Protein, Blood 4.8 g/dL (6.4-8.2)
[2024-11-25 10:11] LABS: Phosphorus, Blood 1.5 mg/dL (2.5-4.9)
[2024-11-25 10:19] LABS: BAND PERCENT MAN 3 % (0-8); BASOPHILS PERCENT MAN 0 % (0-2); EOSINOPHILS PERCENT MAN 0 % (0-6); LYMPHOCYTES ABSOLUTE MAN 2.04 K/mm3 (0.84-5.20); LYMPHOCYTES PERCENT MAN 8 % (21-46); MONOCYTES PERCENT MAN 9 % (4-13); NEUTROPHILS ABSOLUTE MAN 21.23 K/mm3 (1.96-9.15); SEG NEUTROPHILS PERCENT MAN 80 % (41-73); TOTAL CELLS COUNTED 100
--- NOTE | 2024-11-25 11:56 | NUR ---
neuro check wnl.
[2024-11-25 14:40] VITALS: BP 123/64
--- NOTE | 2024-11-25 16:21 | NUR ---
shift summary pt up to chair with pt for approximately [address] ng in [address] with green bilious output. ppn infusing left power port. No flatus to ostomy yet. shameka drain in place draining serosanguinous output.
--- NOTE | 2024-11-25 18:22 | NUR ---
ASSUMPTION OF CARE THIS RN ASSUMED CARE FROM TL RN - NO ACUTE CHANGES SINCE HIS DOCUMENTATION. NG TUBE TO LIS W/ GREEN OUTPUT. COMPA DRAIN W/ SS DRAINAGE. MIDLINE INCISION C/D/I. PPN INFUSING PER EMAR. JACKSON CATHETER DRAINING YELLOW URINE TO GRAVITY. NO OUTPUT FROM OSTOMY NOTED. MANAGING PAIN AND ANXIETY PER EMAR. PATIENT COMMUNICATING NEEDS EFFECTIVELY. CALL LIGHT IN REACH.
[2024-11-25 19:25] VITALS: BP 110/60
[2024-11-26] MEDS ORDERED: Diazepam 5 MG / ML 2ML SYR IV PRN (02:35)
[2024-11-26 06:09] VITALS: BP 121/61
--- NOTE | 2024-11-26 06:26 | NUR ---
NOC SUMMARY- PT PAIN MANAGED WELL. PT NG IS PUTTING OUT DARK BROWN FLUID. PT HAS PANIC EPISODES. PT PO ATIVAN WAS CHANGED TO IV VALIUM. PT HAS NOT HAD ANY OUTPUT IN ILEOSTOMY. COMPA ONLY HAS SCANT AMOUNT IN BULB. PT REPOSITIONED TOLERATED. JACKSON DRAINING TO GRAVITY. PT CHAS HAS SHADOWING AND GOOD COMPRESSION. CALL LIGHT IN REACH.
[2024-11-26 07:03] VITALS: BP 117/65
[2024-11-26] MEDS ORDERED: TPN Consult Notification XX ONE (10:55)
[2024-11-26 14:27] VITALS: BP 116/61
[2024-11-26] MEDS ORDERED: HYDROmorphone HCl/Pf 1MG SYR IV PRN (16:00)
[2024-11-26] MEDS ORDERED: [UNRECOGNIZED DRUG - NUTRITION] IV SCH ×2 (17:00)
--- NOTE | 2024-11-26 17:31 | NUR ---
shift summary pt getting picc line placed for central tpn. resting. activity was up to chair for 2 hrs this am. medicated for anxiety prior to picc placement. tpn/abx held until picc available for use. will continue to monitor.
--- NOTE | 2024-11-26 18:15 | NUR ---
abx/tpn on hold while pt getting picc under sterile procedure.
[2024-11-26 20:06] VITALS: BP 118/60
[2024-11-27 02:54] VITALS: BP 132/61
[2024-11-27] MEDS ORDERED: HYDROmorphone HCl/Pf 1MG SYR IV ONE (03:25)
--- NOTE | 2024-11-27 03:35 | NUR ---
NOC SUMMARY- PT CONTINUES TO HAVE PERSISTANT PAIN. PAIN MANAGED PER AUG. PT NG IS PUTTING OUT BROWN FLUID. PT JACKSON IS DRAINING TO GRAVITY. PT CHAS HAS SHADOWING WITH COMPRESSION. PT ANXIETY MANAGED WELL WITH VALIUM. SOME THIN FLUID NOTED IN OSTOMY. COMPA DRAINING SOME FLUID. CALL LIGHT IN REACH.
[2024-11-27 07:09] LABS: Bun/Creatinine Ratio 14.3 (12.0-20.0); Calcium, Blood 7.7 mg/dL (8.5-10.1); Creatinine, Blood 0.42 mg/dL (0.40-1.00); Phosphorus, Blood 1.9 mg/dL (2.5-4.9); Potassium, Blood 3.5 mmol/L (3.5-5.5)
[2024-11-27 07:44] VITALS: BP 117/59
[2024-11-27] MEDS ORDERED: HYDROmorphone HCl/Pf 1MG SYR IV PRN (08:35)
[2024-11-27] MEDS ORDERED: Pantoprazole Sodium 40 MG Injection IV ONE (10:15)
[2024-11-27 14:19] VITALS: BP 125/66
[2024-11-27] MEDS ORDERED: [UNRECOGNIZED DRUG - NUTRITION] IV SCH (17:00)
[2024-11-27 19:13] VITALS: BP 114/59
--- NOTE | 2024-11-27 19:27 | NUR ---
SHIFT SUMMARY HAS STRUGGLED w/ PAIN TODAY, ABD CONTs TO BE DISTENDED. LOWER PART OF INC WEEPING SS FLUID. ABD PADS BEING ROTATED THRU. OSTOMY w/ NO OUTPUT OR GAS. NGT w/ MODERATE OUTPUT. COMPA w/ SCANT OUTPUT. IV PROTONIX GIVEN.
[2024-11-28 05:22] VITALS: BP 109/55
--- NOTE | 2024-11-28 05:35 | NUR ---
SHIFT SUMMARY POD 12 EX LAP c OSTOMY PLACEMENT; POD 5 EX LAP c PROXIMAL ENTEROTOMY & VAGINAL WALL REPAIR. NO ACUTE CHANGES OVERNIGHT. VSS, HR INCREASE c MOVEMENT/ANX. NPO c SIPS/CHIPS, PT DENIES N/V. NG TUBE TO LIS c DARK GREEN OUTPUT. COMPA DRAIN TO RLQ c SANGUINEOUS DRAINAGE, CHG DRESSING INTACT. OSTOMY c LIQUID DARK GREEN OUTPUT & MUCUS CHUNKS, NO FLATUS. OSTOMY APPLIANCE c DRAINAGE ON OUTER ADHESIVE DRESSING R/T MIDLINE ABD INCISION DRAINAGE. MIDLINE INCISION c JERICHO BHAVANI. ABD PAD PLACED OVER INCISION R/T REDNESS OF SKIN, ADHESIVE DRESSINGS IRRITATING SKIN. SITE CLEANED c WOUND REGION MANAGER & REPLACED MULTIPLE TIMES THIS SHIFT. MOD TO MIN SEROSANG DRAINAGE ON ABD PADS. IV FLUIDS/ABX/NUTRITION INFUSING PER EMAR. JACKSON DRAINING DARK YELLOW URINE TO GRAVITY. PT ABLE TO STAND/PIVOT TO CHAIR c FWW & MAX 1 PERSON ASSIST, 2 PERSON RECOMMENDED R/T LINE & CORD MANAGEMENT. PT REPORTS ABD/BACK PAIN, MEDICATED PER EMAR & NON-PHARM INTERVENTIONS IN USE. CALL LIGHT IN REACH, PT RESTING IN CHAIR, WILL REPORT TO DAY RN.
[2024-11-28] MEDS ORDERED: Pantoprazole Sodium 40 MG Injection IV SCH (06:00)
[2024-11-28 06:46] LABS: Calcium, Blood 7.6 mg/dL (8.5-10.1); Creatinine, Blood 0.4 mg/dL (0.40-1.00); Phosphorus, Blood 1.9 mg/dL (2.5-4.9); Potassium, Blood 3.6 mmol/L (3.5-5.5)
[2024-11-28 07:32] LABS: Hematocrit 24.3 % (33.0-51.0); Hemoglobin 7.6 g/dL (11.5-16.0); Mean Corpuscular HGB 29.7 pg (26.0-34.0); Mean Corpuscular HGB Conc 31.3 g/dL (31.5-36.5); Mean Corpuscular Volume 95 fL (80-100); NRBC ABSOLUTE 0.06 K/mm3 (0.00-0.02); NRBC Auto 0.3 /100 WBC (0.0-0.2); Platelet Count 340 K/mm3 (150-400); RDW Standard Deviation 67.8 fL (35.1-46.3); Red Blood Cell Count 2.56 M/mm3 (3.80-5.20); White Blood Cell Count 20.49 K/mm3 (4.00-11.30)
[2024-11-28 07:46] VITALS: BP 111/67
[2024-11-28 08:04] LABS: BAND PERCENT MAN 5 % (0-8); BASOPHILS PERCENT MAN 1 % (0-2); EOSINOPHILS PERCENT MAN 0 % (0-6); LYMPHOCYTES ABSOLUTE MAN 0.81 K/mm3 (0.84-5.20); LYMPHOCYTES PERCENT MAN 4 % (21-46); METAMYELOCYTE PERCENT MAN 1 % (0-0); MONOCYTES PERCENT MAN 2 % (4-13); NEUTROPHILS ABSOLUTE MAN 18.85 K/mm3 (1.96-9.15); SEG NEUTROPHILS PERCENT MAN 87 % (41-73); TOTAL CELLS COUNTED 100
[2024-11-28 15:27] VITALS: BP 119/50
--- NOTE | 2024-11-28 16:25 | NUR ---
SHIFT SUMMARY POD 12 EX LAP W/ OSTOMY PLACEMENT; POD 5 EX LAP W/ PROXIMAL ENTEROTOMY AND VAGINAL WALL REPAIR. NO ACUTE CHANGES. PATIENT ALERT AND ORIENTED X4. COMMUNICATING NEEDS EFFECTIVELY. EXPERIENCES EPISODES OF ANXIETY - MANAGING PER EMAR AND W/ THERAPUETIC DISCUSSION. VSS. SBP 110s. MAP >65. TACHYCARDIC AT TIMES - HR 80s-100s. ASYMPTOMATIC W/ CHANGES. +2 EDEMA TO BLE - PPP. ON ROOM AIR, SATs >90%. DENIES SOB. MIDLINE INCISION W/ REDNESS AND SS DRAINAGE - MD MICHELLEER AT BEDSIDE. CONCERN FOR INFECTION. JERICHO REMOVED FROM DISTAL END OF INCISION - PACKING PLACED BY MD. ORDER IN PLACE FOR DAILY WOUND CARE. NG TUBE REMOVED TODAY - TOLERATING SIPS/CHIPS. COMPA DRAIN W/ MINIMAL SS DRAINAGE. OSTOMY W/ LIQUID GREEN OUTPUT. MANAGING ABD PAIN PER EMAR. JACKSON REMOVED - VOIDING. AMBULATING IN ROOM AND HALLWAY W/ SBA. CPN INFUSING PER EMAR. CALL LIGHT IN REACH.
[2024-11-28] MEDS ORDERED: Parenteral Electolytes 40 ML,Potassium Phosphate Dibasic 30 MM,Multivitamins 10 ML,ZINC... IV SCH (17:00)
[2024-11-28 19:23] VITALS: BP 107/60
[2024-11-28] MEDS ORDERED: TIOT18 INH (22:36)
[2024-11-28] MEDS ORDERED: Estradiol Vag Cream 0.1 MG/G 42.5 GM Tube VAG SCH (22:47)
[2024-11-28] MEDS ORDERED: Formoterol/Mometasone MDI 5/100 mcg 13 GM INH SCH ×2 (23:00→23:32)
[2024-11-28] MEDS ORDERED: Tiotropium Bromide 2.5 MCG/ACT MIST INHAL (10 ACT/4 GM) INH SCH (23:00)
[2024-11-28] MEDS ORDERED: Nystatin 100,000 Unit/GM CREAM 15 GM TOP PRN (23:00)
[2024-11-29 04:42] VITALS: BP 113/67
--- NOTE | 2024-11-29 06:18 | NUR ---
SHIFT SUMMARY POD 13 EX LAP c OSTOMY PLACEMENT; POD 6 EX LAP c PROXIMAL ENTEROTOMY & VAGINAL WALL REPAIR. NO ACUTE CHANGES OVERNIGHT. VSS, HR INCREASE c MOVEMENT/ANX. NPO c SIPS/CHIPS, PT DENIES N/V. COMPA DRAIN TO RLQ c SANGUINEOUS DRAINAGE, CHG DRESSING c MIN SEROUS DRAINAGE AT INCISION SITE. OSTOMY c LIQUID DARK GREEN OUTPUT & MUCUS CHUNKS, NO FLATUS. OSTOMY APPLIANCE c DRAINAGE ON OUTER ADHESIVE DRESSING R/T MIDLINE ABD INCISION DRAINAGE. MIDLINE INCISION c JERICHO BHAVANI c PACKING & TEGADERM AT BOTTOM OF SITE - REDNESS OF SKIN, ADHESIVE DRESSINGS IRRITATING SKIN. IV FLUIDS/ABX/NUTRITION INFUSING PER EMAR. VOIDING. PT AMBULATING c FWW & MOD 1 PERSON ASSIST R/T LINE & CORD MANAGEMENT. PT REPORTS ABD/BACK PAIN, MEDICATED PER EMAR & NON-PHARM INTERVENTIONS IN USE. CALL LIGHT IN REACH, PT RESTING IN BED, WILL REPORT TO DAY RN.
[2024-11-29 07:04] LABS: Magnesium, Blood 1.8 mg/dL (1.6-2.4)
[2024-11-29 07:12] LABS: Bun/Creatinine Ratio 22.2 (12.0-20.0); Calcium, Blood 7.9 mg/dL (8.5-10.1); Creatinine, Blood 0.36 mg/dL (0.40-1.00); Potassium, Blood 3.6 mmol/L (3.5-5.5)
[2024-11-29 07:35] VITALS: BP 110/55
--- NOTE | 2024-11-29 12:48 | NUR ---
WOUND CHANGE MIDLINE PACKING REMOVED, WOUND CLEANED AND CHANGED WITH WTD GAUZE AND COVERED WITH TEGADERM. OSTOMY APPLIANCE REMOVED AND SKIN CLEANED AND PREPPED, REPLACED WITH NEW APPLIANCE. COMPA DRAIN DRESSING REMOVED AND REPLACED WITH NEW CHG DRESSING. PATIENT MEDICATED FOR PAIN AND TOLERATED WELL.
[2024-11-29 14:21] VITALS: BP 122/57
--- NOTE | 2024-11-29 17:19 | NUR ---
SHIFT SUMMARY S/P EX LAP AND RESECTION. COMPA DRAIN WITH MINIMAL S/S OUTPUT. MIDLINE DRESSING CHANGED AND PACKED WITH WTD GAUZE AND TEGADERM C/D/I AT THIS TIME. OSTOMY WITH MINIMAL OUTPUT GREEN/BROWN IN COLOR. NEW APPLIANCE PLACED TODAY. PATIENT IS MEDICATED PER EMAR FOR PAIN. CHANGED DIET TO [place] FOR DINNER. ABLE TO TRANSFER TO [facility]. VOIDING FREQUENTLY, WEIGHT UPDATED IN CHART, PATIENT HAS +3 PITTING EDEMA TO BILAT LE, AND GROIN. [place]STAT[place] TO GROIN PRN. VSS, CALL LIGHT IN REACH.
[2024-11-29 19:46] VITALS: BP 106/61
[2024-11-30] VITALS (8 sets, daily range): BP systolic 98–121; BP diastolic 48–64
[2024-11-30 05:51] LABS: Hematocrit 21.2 % (33.0-51.0); Hemoglobin 6.8 g/dL (11.5-16.0); Mean Corpuscular HGB 30.1 pg (26.0-34.0); Mean Corpuscular HGB Conc 32.1 g/dL (31.5-36.5); Mean Corpuscular Volume 94 fL (80-100); Mean Platelet Volume 9.2 fL (9.1-12.4); NRBC ABSOLUTE 0.06 K/mm3 (0.00-0.02); NRBC Auto 0.4 /100 WBC (0.0-0.2); Platelet Count 323 K/mm3 (150-400); Red Blood Cell Count 2.26 M/mm3 (3.80-5.20); White Blood Cell Count 16.26 K/mm3 (4.00-11.30)
[2024-11-30 06:11] LABS: Bun/Creatinine Ratio 17.6 (12.0-20.0); Calcium, Blood 7.9 mg/dL (8.5-10.1); Creatinine, Blood 0.4 mg/dL (0.40-1.00); Magnesium, Blood 1.9 mg/dL (1.6-2.4); Phosphorus, Blood 2.4 mg/dL (2.5-4.9); Potassium, Blood 3.7 mmol/L (3.5-5.5)
--- NOTE | 2024-11-30 06:36 | NUR ---
SHIFT SUMMARY PT A&Ox4, ANXIOUS AT TIMES. VALIUM GIVEN PER EMAR WITH GOOD EFFECT. PT C/O FREQUENT PAIN IN ABD THAT IS WORSE WITH MOVEMENT. MEDICATED PER EMAR. PT DECLINED OFFER FOR PO PAIN MEDS STATING SHE WAS WORRIED IT WOULD UPSET HER ABD. AT START OF SHIFT, DRESSING ON MIDLINE INCISION SITE PEELED UP AND WAS LEAKING. WET TO DRY DRESSING CHANGED PER NOTES AND NEW TEGADER PLACED OVER SITE. NEW OSTOMY PLACED WELL, D/T LEAKING UNDER SECURMENT DEVICE. SKIN PREP USED D/T SOME SKIN IRRITATION AND SKIN BREAKDOWN. PT RESTLESS AND FREQUENTLY UP TO BSC OR NEEDING TO BE REPOSITIONED. PURWICK PLACED TO HOPEFULLY HELP PT REST WITH SOME SUCCESS. IV ABX GIVEN PER EMAR. TPN INFUSING AT GOAL RATE OF 83ml/hr. PT UP TO RECLINER AT AROUND 0400. LEGS ELEVATED T/O NIGHT. 10ml EMPTIED FROM COMPA DRAIN. ILLIOSTOMY DRAINING BROWN, LOOSE STOOL. DRESSINGS REMAIN C/D/I. VSS. BED IN LOWEST POSITION AND CALL LIGHT IN REACH.
[2024-11-30] MEDS ORDERED: NS 500 ML IV SCH (15:50)
--- NOTE | 2024-11-30 17:47 | NUR ---
SHIFT SUMMARY PATIENT UPGRADED TO REGULAR DIET AND TPN DC'D. HGB THIS AM IS 6.8 DR. JIMENEZ ORDERED 1 UNIT PRBC'S STILL CURRENTLY INFUSING. ILEOSTOMY WAS LEAKING INTO MIDLINE WOUND. WOUND CLEANSED AND REPACKED WET TO DRY DRESSING AND COVERED. ILEOSTOMY REPLACED BY IRASEMA DIAZ. AND SEEMS TO BE C/D/I AT THIS TIME. NO LEAKING. OUTPUT IS BROWN AND THICKENING UP AFTER REGULAR TRAY AT LUNCH. PRN DILAUDID AND PERCOCET MANAGING PAIN. PRN VALIUM FOR ATIVAN GIVEN ONCE AND REPORTED RELIEF. CALL LIGHT IN REACH. REPORT GIVEN TO TL VILLALPANDO WHO IS TO RESUME CARE UNTIL SHIFT CHANGE.
[2024-12-01 00:06] VITALS: BP 103/55
[2024-12-01 04:26] VITALS: BP 110/86
[2024-12-01 07:14] VITALS: BP 100/61
--- NOTE | 2024-12-01 07:24 | NUR ---
SHIFT SUMMARY; PATIENT UP TO BSC OFTEN. ABLE TO ASSIST WITH CARE, SHOWN HOW TO EMPTY OSTOMY.PLEASANT BUT ANXIOUS. MEDICATED FOR PAIN OFTEN
[2024-12-01 09:15] LABS: Hemoglobin 8.7 g/dL (11.5-16.0); Mean Corpuscular HGB 29.3 pg (26.0-34.0); Mean Corpuscular HGB Conc 32.2 g/dL (31.5-36.5); Mean Corpuscular Volume 91 fL (80-100); NRBC ABSOLUTE 0.04 K/mm3 (0.00-0.02); NRBC Auto 0.3 /100 WBC (0.0-0.2); Platelet Count 305 K/mm3 (150-400); RDW Coefficient Variation 19.7 % (11.7-14.2); RDW Standard Deviation 62.7 fL (35.1-46.3); Red Blood Cell Count 2.97 M/mm3 (3.80-5.20); White Blood Cell Count 15.12 K/mm3 (4.00-11.30)
[2024-12-01 15:56] VITALS: BP 128/74
--- NOTE | 2024-12-01 18:32 | NUR ---
SHIFT SUMMARY PT S/P BOWEL RESECTION W/ILEOSTOMY WITH GOOD OUTPUT T/O SHIFT. MIDLINE INCISION WITH JERICHO AT TOP OF WOUND AND DEHISS AT BOTTOM WITH WET TO DRY DRESSING CHANGED TWICE THIS SHIFT. COMPA W/MIN SS OUTPUT. PT AMBULATING IN ROOM INDEPENDENTLY T/O SHIFT AND INTO SHOWER. PAIN HAS BEEN WELL MANAGED WITH 10MG HYDROCODONE Q4 WITH 0.5 DILAUDID IVP FOR BREAKTHRU PAIN X'S 3. TOLERATING REGULAR DIET WITH NO N/V.
[2024-12-01 20:23] VITALS: BP 109/63
[2024-12-02 03:44] VITALS: BP 113/72
--- NOTE | 2024-12-02 05:01 | NUR ---
POLYMERIZATION ENGINEER SUMMARY NO ACUTE CHANGES THIS SHIFT.PT AAOX4 AND INDEPENDENT TO THE BSC. PAIN CONTROLLED WITH NORCO AND 0.5 MG DILAUDID FOR BREAKTHROUGH PAIN. PT HAS DONE WELL EMPTYING HER OWN OSTOMY BAG TONIGHT. CONTINUES TO HAVE BROWN/GREEN LIQUID OUTPUT INTO OSTOMY BAG. VSS, WILL CONTINUE TO MONITOR.
[2024-12-02 06:57] LABS: Hematocrit 28.1 % (33.0-51.0); Hemoglobin 8.9 g/dL (11.5-16.0); Mean Corpuscular HGB 29.4 pg (26.0-34.0); Mean Corpuscular HGB Conc 31.7 g/dL (31.5-36.5); Mean Corpuscular Volume 93 fL (80-100); Platelet Count 329 K/mm3 (150-400); RDW Coefficient Variation 19.7 % (11.7-14.2); RDW Standard Deviation 65.1 fL (35.1-46.3); Red Blood Cell Count 3.03 M/mm3 (3.80-5.20); White Blood Cell Count 13.44 K/mm3 (4.00-11.30)
[2024-12-02 07:19] LABS: Bun/Creatinine Ratio 19.6 (12.0-20.0); Calcium, Blood 8.4 mg/dL (8.5-10.1); Creatinine, Blood 0.41 mg/dL (0.40-1.00); Potassium, Blood 3.2 mmol/L (3.5-5.5)
[2024-12-02 07:52] VITALS: BP 96/74
[2024-12-02] MEDS ORDERED: Potassium Chloride 20 MEQ TabCR PO ONE (08:05)
[2024-12-02 17:15] VITALS: BP 117/70
[2024-12-02 19:04] VITALS: BP 105/73
--- NOTE | 2024-12-02 20:38 | NUR ---
SHIFT SUMMARY PT HAD UNEVENTFUL SHIFT TODAY, PACKED DRESSING CHANGED TODAY, INCREASED PAIN THOUGH SHE REPROTS SHE IS DOING MORE WHICH WOULD ACCOUNT FOR THAT, ABLE TO EMPTY HER OSTOMY APPLIANCE, MODERATE DISTENTION BUT SHE DENIES TENDERNESS DURING PHYSICAL EXAMINATION WHEN PALPATING HER ABDOMEN IN ALL QUADRANTS. NO ACUTE EVENTS, CALL LIGHT IN REACH.
[2024-12-03] MEDS ORDERED: LORazepam 0.5 MG Tab PO PRN (00:50)
[2024-12-03 03:07] VITALS: BP 122/72
--- NOTE | 2024-12-03 05:00 | NUR ---
PROP SAWYER SUMMARY NO ACUTE CHANGES NOTED THIS SHIFT. PT AAOX4 AND PLEASANT. INDEPDENDENT TO [facility] [place] AND HAS DONE MOST OF HER OWN OSTOMY EMPTYING HERSELF WITH MINIMAL ASSISTANCE. CONTINUES TO HAVE CONSISTENT ABD PAIN THAT IS WELL MANAGED WITH NORCO AND DILAUDID. PT DID RECEIVE VALIUM ONCE TONIGHT DUE TO WAKING UP WITH SOME EXTREME ANXIETY. PT STATED THAT SHE HAD USED PO ATIVAN IN THE PAST FOR ANXIETY SO ORDER OBTAINED FOR PRN ATIVAN FROM [employer] DE[employer]IT ATTENDANT PHYSICIAN. VSS, WILL CONTINUE TO MONITOR.
[2024-12-03 06:14] LABS: Bun/Creatinine Ratio 16.5 (12.0-20.0); Calcium, Blood 8.4 mg/dL (8.5-10.1); Creatinine, Blood 0.48 mg/dL (0.40-1.00); Potassium, Blood 2.9 mmol/L (3.5-5.5)
[2024-12-03 07:09] VITALS: BP 127/68
[2024-12-03] MEDS ORDERED: Potassium Chl 20MEQ/Water100ML 100 ML IV SCH (08:30)
[2024-12-03] MEDS ORDERED: Potassium Chloride 20 MEQ in NS 90 ML IV SCH (08:30)
[2024-12-03] MEDS ORDERED: BusPIRone HCl 5 MG Tab PO SCH (09:00)
--- NOTE | 2024-12-03 14:24 | NUR ---
WOUND CARE ADMINISTERED THIS MORNING. DR. CABRERA REMOVED OLD GAUZE AND ASSESSED THE ABDOMINAL WOUND. WOUND CLEANSED AND WET TO DRY DRESSING APPLIED. PATIENT MEDICATED FOR PAIN
[2024-12-03 15:36] VITALS: BP 104/62
--- NOTE | 2024-12-03 17:30 | NUR ---
PATIENT IS ALERT AND ORIENTED AND COOPERATIVE WITH CARE. C/O ABDOMINAL PAIN 7/10 AT THIS TIME. MEDICATED PER EMAR. ON RA. CARES FOR HER ILEOSTOMY ON HER OWN. WOUND CARE PROVIDED BY RN THIS MORNING. PICC LINE DRESSING CHANGE THIS EVENING. COMPA DRAIN HAD 20 ML OF SEROSANGUINOUS DRAINAGE THIS SHIFT. MEDICATED FOR ANXIETY WITH NEW BUSPAR ORDER. UP TO THE BSC INDEPENDENTLY. TOLERATING HER DIET. SAT UP IN THE CHAIR A COUPLE TIMES TODAY INDEPENDENTLY. KCL INFUSION TODAY, TOLERATED WELL. LATEST POTTASIUM RESULT WAS 3.8. WILL CONTINUE TO MONITOR.
[2024-12-03 19:59] VITALS: BP 116/67
[2024-12-04 03:10] VITALS: BP 113/74
--- NOTE | 2024-12-04 04:59 | NUR ---
APPLICATION SECURITY SPECIALIST SUMMARY PT'S ILEOSTOMY APPLIANCE BEEN LEAKING SO ENTIRE APPLIANCE AND BAG REPLACED USING 2-1/4" APPLIANCE. PACKED DRESSING TO ABD MIDLINE SURGICAL INCISION REPLACED WELL. CONTINUE TO MEDICATE FOR PAIN WITH NORCO AND DILAUDID. PT HAS BEEN MAKING AN EFFORT TO USE IV PAIN MEDS LESS OFTEN AND HAS DONE FAIRLY WELL. VSS, WILL CONTINUE TO MONITOR.
[2024-12-04 06:16] LABS: Bun/Creatinine Ratio 17.3 (12.0-20.0); Creatinine, Blood 0.46 mg/dL (0.40-1.00); Potassium, Blood 3.1 mmol/L (3.5-5.5)
[2024-12-04 07:42] VITALS: BP 114/62
[2024-12-04] MEDS ORDERED: Potassium Chloride 20 MEQ TabCR PO ONE (07:55)
[2024-12-04] MEDS ORDERED: Spironolactone 50 MG Tab PO SCH (09:00)
--- NOTE | 2024-12-04 12:51 | NUR ---
PACKING CHANGED AT THIS TIME. WET TO DRY GAUZE IN PLACE
[2024-12-04 14:40] VITALS: BP 110/57
--- NOTE | 2024-12-04 16:50 | NUR ---
SHIFT SUMMARY PT PAIN IMPROVING DURING SHIFT. STILL REQUIRING SOME IV MEDICATIONS FOR BREAKTHROUGH. MIDLINE DRESSING CHANGED TODAY, WET TO DRY PLACED. ILEOSTOMY CONTINUES TO HAVE LIQUID OUTPUT. VOIDING WELL.
[2024-12-04] MEDS ORDERED: HYDROmorphone HCl/Pf 1MG SYR IV PRN (17:15)
[2024-12-04 20:22] VITALS: BP 111/68
[2024-12-05 02:47] VITALS: BP 116/70
--- NOTE | 2024-12-05 04:47 | NUR ---
SHIFT SUMMARY A/OX4, IND TO BSC. ILEOSTOMY DRESSING LEAKING, CHANGED X2. WET TO DRY PACKING CHANGED TO LOWER ABD THIS SHIFT. C/O PAIN, MEDICATED PER EMAR. VSS, NO ACUTE CHANGES AT THIS TIME
[2024-12-05 06:09] LABS: Hematocrit 26.1 % (33.0-51.0); Hemoglobin 8.2 g/dL (11.5-16.0); Mean Corpuscular HGB 29.3 pg (26.0-34.0); Mean Corpuscular HGB Conc 31.4 g/dL (31.5-36.5); Mean Corpuscular Volume 93 fL (80-100); Mean Platelet Volume 8.6 fL (9.1-12.4); Platelet Count 285 K/mm3 (150-400); RDW Coefficient Variation 18.8 % (11.7-14.2); RDW Standard Deviation 63.3 fL (35.1-46.3); White Blood Cell Count 9.18 K/mm3 (4.00-11.30)
[2024-12-05 06:26] LABS: Bun/Creatinine Ratio 12.2 (12.0-20.0); Calcium, Blood 8.6 mg/dL (8.5-10.1); Creatinine, Blood 0.49 mg/dL (0.40-1.00); Potassium, Blood 3.3 mmol/L (3.5-5.5)
[2024-12-05 07:14] VITALS: BP 117/64
[2024-12-05] MEDS ORDERED: Potassium Chloride 20 MEQ TabCR PO ONE (07:50)
[2024-12-05] MEDS ORDERED: Spironolactone 50 MG Tab PO SCH (09:00)
[2024-12-05 15:50] VITALS: BP 123/73
--- NOTE | 2024-12-05 16:49 | NUR ---
SHIFT SUMMARY PT REPORTS PAIN IMPROVEMENT DURING SHIFT. MIDLINE DRESSING REMAINS IN PLACE. PT EMPTYING OSTOMY ON HER OWN. IND IN ROOM TO VOID. TOLERATING MINIMAL DIET. PT ASKING QUESTIONS AND EAGER TO LEARN ABOUT HER OSTOMY. LIQUID BROWN/GREEN STOOL OUT
--- NOTE | 2024-12-05 18:24 | NUR ---
MIDLINE PACKING CHANGED AT THIS TIME. WET TO DRY APPLIED
[2024-12-05 20:21] VITALS: BP 133/69
[2024-12-06 04:53] VITALS: BP 113/68
[2024-12-06 07:02] VITALS: BP 104/56
[2024-12-06 07:11] LABS: Bun/Creatinine Ratio 11.1 (12.0-20.0); Calcium, Blood 9.2 mg/dL (8.5-10.1); Creatinine, Blood 0.45 mg/dL (0.40-1.00)
--- NOTE | 2024-12-06 07:59 | NUR ---
SHIFT SUMMARY NOC. PT S/P ILLEOSTOMY PLACEMENT AND WASHOUT. STOMA IS MOIST/PINK, PRODUCING GREEN/BROWN LIQUID STOOL. PT PAINFUL THIS SHIFT AND MEDICATED WITH ORAL NORCO 1-2 TABS WITH IV BREAKTHROUGH X1 TIME. PT INDEPENDENT TO BSC. PT MAKES NEEDS KNOWN, CALL LIGHT IN REACH.
[2024-12-06] MEDS ORDERED: Potassium Chloride 20 MEQ TabCR PO SCH (08:00)
[2024-12-06] MEDS ORDERED: Potassium Chloride 40 MEQ in NS 250 ML IV ONE (08:05)
[2024-12-06] MEDS ORDERED: CALCIUM CARBONATE 1250 MG/5 ML PO SCH (09:00)
[2024-12-06] MEDS ORDERED: Multivitamins-Minerals Liquid 15 ML Oral Syringe PO SCH (09:00)
[2024-12-06] MEDS ORDERED: HYDROcodone 5-APAP 325 TAB PO PRN (12:30)
[2024-12-06 15:00] VITALS: BP 106/57
--- NOTE | 2024-12-06 15:49 | NUR ---
pt ostomy appliance leaking/wound care changed appliance. talked pt through process. changed wet to dry dressing to pt's inferior end of incision. now resting in bed, call light in reach.
--- NOTE | 2024-12-06 19:18 | NUR ---
summary PT OSTOMY LEAKED TWICE DURING SHIFT. CHANGED TWO TIMES. PT PAINFUL WITH CHANGES. CHANGED ABDOMINAL DRESSING TWICE, ALSO. MEDICATED THIS EVENING FOR ANXIETY. GETS UP INDEPENDENTLY TO BSC. EMPTYING OSTOMY APPLIANCE INDEPENDENTLY. CALL LIGHT IN REACH.
[2024-12-06 20:11] VITALS: BP 110/62
--- NOTE | 2024-12-07 03:58 | NUR ---
OSTOMY APPLIANCE CHANGED. APPLIANCE CHANGED D/T LEAKING. STOMA PINK AND MOIST BUT APPEARS TO BE RECESSED. SKIN RED AND IRRITATED AROUND STOMA. CLEANSED AND CLEANED PRIOR TO PLACEMENT. CERA RING USED AND APPLIANCE PLACED.
[2024-12-07 04:55] VITALS: BP 118/68
--- NOTE | 2024-12-07 06:49 | NUR ---
OSTOMY APPLIANCE CHANGED. APPLIANCE CHANGED D/T LEAKING FOR THE SECOND TIME. STOMA IS PINK, MOIST AND RECESSED. SKIN IS TENDER RED AND IRRITATED AROUND STOMA. CLEANSED AND CLEANED PRIOR TO PLACEMENT. CERA RING USED AND APPLIANCE APPLIED.
[2024-12-07 06:55] VITALS: BP 126/63
--- NOTE | 2024-12-07 07:31 | NUR ---
SHIFT SUMMARY NOC. PT S/P ILLEOSTOMY PLACEMENT AND WASHOUT. STOMA IS MOIST/PINK, APPLIANCE NEEDED CHANGING X2 THIS SHIFT D/T LEAKING. PRODUCING LIQUID STOOL AND VOIDING URINE. SKIN UNDER APPLIANCE IS RED AND TENDER TO PALPATION. PT VERBALIZED PAIN THIS SHIFT. PT TAKING NORCO WITH IV DILAUDID FOR BREAK THROUGH. PT INDEPENDENT TO BSC. PT MAKES NEEDS KNOWN, CALL LIGHT IN REACH.
[2024-12-07] MEDS ORDERED: HYDROcodone 5-APAP 325 TAB PO PRN (09:05)
[2024-12-07 09:25] LABS: Hematocrit 28.1 % (33.0-51.0); Hemoglobin 8.8 g/dL (11.5-16.0); Mean Corpuscular HGB 28.9 pg (26.0-34.0); Mean Corpuscular HGB Conc 31.3 g/dL (31.5-36.5); Mean Corpuscular Volume 92 fL (80-100); Mean Platelet Volume 8.2 fL (9.1-12.4); Platelet Count 272 K/mm3 (150-400); RDW Coefficient Variation 18.6 % (11.7-14.2); RDW Standard Deviation 62.6 fL (35.1-46.3); Red Blood Cell Count 3.04 M/mm3 (3.80-5.20); White Blood Cell Count 8.38 K/mm3 (4.00-11.30)
[2024-12-07 09:40] LABS: Bun/Creatinine Ratio 8.1 (12.0-20.0); Creatinine, Blood 0.49 mg/dL (0.40-1.00); Potassium, Blood 3.3 mmol/L (3.5-5.5)
[2024-12-07 15:07] VITALS: BP 118/70
--- NOTE | 2024-12-07 18:16 | NUR ---
SHIFT SUMMARY WOUND MANAGEMENT AND OSTOMY CARE AND PAIN MANAGEMENT CONTINUE TO BE DIFFICULT. ILEOSTOMY HAS BEEN CHANGED MULTIPLE TIMES THIS SHIFT - WITH, AT TIMES, LEAKAGE INTO MIDLINE INCISION - THIS REQUIRES CONSTATN REMOVAL OF DRESSING, PACKING, AND THEN SUBSEQUENT CLEANING, AND ADDING ADHESIVE - PT OFTEN IN TEARS WITH THIS. MULTIPLE STAFF TRY TO OBTAIN APPROPRIATE ILEOSTOMY SEAL WITH THIS USUALLY ONLY HAPPENNG FOR 6 HOURS OR LESS. PT/FAMILY SHARING CONCERNS FOR DC'ING HOME PT CONTINUES TO REPORT SEVERE PAIN, THATS INCREASING WITH THE ILEOSTOMY EQUIPMENT FAILURES. PICC LINE DRESSING CHANGED TODAY. PT USING CALL LIGHT APPROPRIATELY. VSS. ANXIOUS FOR TOMORROW AND DC PROCESS.
[2024-12-07 19:50] VITALS: BP 117/63
[2024-12-08 03:42] VITALS: BP 124/67
[2024-12-08 06:26] LABS: Hematocrit 28.8 % (33.0-51.0); Mean Corpuscular HGB 29.4 pg (26.0-34.0); Mean Corpuscular HGB Conc 31.3 g/dL (31.5-36.5); Mean Corpuscular Volume 94 fL (80-100); Mean Platelet Volume 8.3 fL (9.1-12.4); Platelet Count 265 K/mm3 (150-400); RDW Coefficient Variation 18.5 % (11.7-14.2); RDW Standard Deviation 63.8 fL (35.1-46.3); Red Blood Cell Count 3.06 M/mm3 (3.80-5.20); White Blood Cell Count 6.62 K/mm3 (4.00-11.30)
--- NOTE | 2024-12-08 06:28 | NUR ---
SHIFT SUMMARY NOC. PT S/P ILLEOSTOMY PLACEMENT AND WASHOUT. PT'S OSTOMY LEAKING AND ABDOMINAL INCISION PACKING CHANGED AT APPROX 0500. STOMA IS MOIST/PINK AND RECESSED IN APPEARANCE. OSTOMY PRODUCING LIQUID BROWN/GREEN OUTPUT AND VOIDING URINE. SKIN UNDER APPLIANCE IS TENDER AND RED. PT MEDICATED FOR PAIN WITH ORAL PERCOCET AND BREAKTHROUGH DILAUDID. PT INDEPENDENT TO BSC. PT CALLS APPROPRIATELY AND CALL LIGHT IN REACH.
[2024-12-08 07:00] LABS: Bun/Creatinine Ratio 8.8 (12.0-20.0); Calcium, Blood 8.8 mg/dL (8.5-10.1); Creatinine, Blood 0.46 mg/dL (0.40-1.00); Potassium, Blood 3.5 mmol/L (3.5-5.5)
[2024-12-08 07:14] VITALS: BP 113/64
[2024-12-08] MEDS ORDERED: HyDROXyzine HCl 25 MG Tab PO PRN (09:00)
--- NOTE | 2024-12-08 15:08 | NUR ---
ILEOSTOMY APPLIANCE CHANGED THIS MORNING, SKIN SURROUNDING STOMA IS VERY RED AND SENSITIVE. SKIN PREP APPLIED BEFORE PLACING APPLIANCE. PT HAS GOOD SEAL AT THIS TIME, OUTPUT IS LIQUID AND BROWN/GREEN.
[2024-12-08 16:19] VITALS: BP 120/71
--- NOTE | 2024-12-08 16:33 | NUR ---
WET TO DRY DRESSING CHANGED COMPLETED AT AROUND 1600, PT TOLERATED WELL.
--- NOTE | 2024-12-08 16:34 | NUR ---
REPORT PASSED TO RN AT [facility] AT THIS TIME
--- NOTE | 2024-12-08 17:59 | NUR ---
TRANSPORT HERE FOR PT AT ABOUT 1710. TRANSPORTER GIVEN DC PACKET AND PT LEFT UNIT VIA WHEELCHAIR AT 1715
== END 2024-12-08 17:35 | DRG 854 ==
LOC: ER 04:03 → SURS 04:04 → ERHOLD 04:04 → SURS 08:06
PROVIDERS: Emergency Medicine; Internal Medicine; Surgery; ADMIT Internal Medicine
PROC: 0DTN0ZZ Resection of Sigmoid Colon, Open Approach (ICD-10-PCS; 2024-11-16)
PROC: 0DNE0ZZ Release Large Intestine, Open Approach (ICD-10-PCS; 2024-11-16)
PROC: 0WJP4ZZ Inspection of Gastrointestinal Tract, Percutaneous Endoscopic Approach (ICD-10-PCS; 2024-11-16)
PROC: 8E0W4CZ Robotic Assisted Procedure of Trunk Region, Percutaneous Endoscopic Approach (ICD-10-PCS; 2024-11-16)
PROC: 0T9B70Z Drainage of Bladder with Drainage Device, Via Natural or Artificial Opening (ICD-10-PCS; 2024-11-16)
PROC: 0DH67UZ Insertion of Feeding Device into Stomach, Via Natural or Artificial Opening (ICD-10-PCS; 2024-11-16)
PROC: 3E0336Z Introduction of Nutritional Substance into Peripheral Vein, Percutaneous Approach (ICD-10-PCS; 2024-11-16)
PROC: 0D1B0Z4 Bypass Ileum to Cutaneous, Open Approach (ICD-10-PCS; principal; 2024-11-16 14:30)
PROC: 0DQ80ZZ Repair Small Intestine, Open Approach (ICD-10-PCS; 2024-11-23)
PROC: 0UQG0ZZ Repair Vagina, Open Approach (ICD-10-PCS; 2024-11-23)
DX: A41.9 Sepsis, unspecified organism (principal); E87.1 Hypo-osmolality and hyponatremia; K57.20 Diverticulitis of large intestine with perforation and abscess without bleeding; N32.1 Vesicointestinal fistula; D50.9 Iron deficiency anemia, unspecified; E87.6 Hypokalemia; J44.9 Chronic obstructive pulmonary disease, unspecified; F17.210 Nicotine dependence, cigarettes, uncomplicated; F41.9 Anxiety disorder, unspecified; Z85.71 Personal history of Hodgkin lymphoma; Z87.442 Personal history of urinary calculi; Z79.899 Other long term (current) drug therapy; Z90.49 Acquired absence of other specified parts of digestive tract; Z98.51 Tubal ligation status; Z90.89 Acquired absence of other organs; Z98.890 Other specified postprocedural states; Z88.8 Allergy status to other drugs, medicaments and biological substances; Z91.040 Latex allergy status; E83.39 Other disorders of phosphorus metabolism; E83.42 Hypomagnesemia; B96.1 Klebsiella pneumoniae [K. pneumoniae] as the cause of diseases classified elsewhere
CPT/HCPCS: 36415; 36430; 36569; 71045; 74018; 74177; 80048; 80053; 80069; 81001; 82728; 83540; 83550; 83605; 83735; 84100; 84132; 84145; 84478; 85025; 85027; 86141; 86850; 86900; 86901; 86923; 87077; 87086; 87186; 88307; 93971; 94640; 94664; 94760; 94762; 97110; 97116; 97161; 97530; 99285-25; A9270; C1751; J0295; J0330; J0696; J1100; J1171; J1650; J1750; J2060; J2250; J2371; J2405; J2470; J2543; J2704; J2765; J3010; J3360; J3411; J3475; J3480; J7040; J7050; J7060; J7120; J7799; P9016; P9045; Q9967

== ENCOUNTER 2024-12-09 21:07 | Inpatient (IN) | payer OTHER ==
[~2024-12-09] VITALS: Ht 160 cm; Wt 62.7 kg
[~2024-12-09 21:07] MED LIST changes: +AMOX-CLAV 875-1 EAC5 PO; +MIRALAX1714 PO; +TIOT18 INH
[2024-12-09 21:56] LABS: BASOPHILS ABSOLUTE AUTO 0.04 K/mm3 (0.00-0.23); BASOPHILS PERCENT AUTO 0 % (0-2); EOSINOPHILS ABSOLUTE AUTO 0.03 K/mm3 (0.00-0.68); EOSINOPHILS PERCENT AUTO 0 % (0-6); Hematocrit 31.8 % (33.0-51.0); Hemoglobin 10.1 g/dL (11.5-16.0); IMMATURE GRAN ABSOLUTE AUTO 0.11 K/mm3 (0.00-0.10); IMMATURE GRAN PERCENT AUTO 1 % (0-1); LYMPHOCYTES ABSOLUTE AUTO 3.95 K/mm3 (0.84-5.20); LYMPHOCYTES PERCENT AUTO 34 % (21-46); MONOCYTES ABSOLUTE AUTO 0.98 K/mm3 (0.16-1.47); MONOCYTES PERCENT AUTO 8 % (4-13); Mean Corpuscular HGB Conc 31.8 g/dL (31.5-36.5); Mean Corpuscular Volume 92 fL (80-100); NEUTROPHILS ABSOLUTE AUTO 6.53 K/mm3 (1.96-9.15); NEUTROPHILS PERCENT AUTO 56 % (41-73); NRBC ABSOLUTE 0.00 K/mm3 (0.00-0.02); NRBC Auto 0.0 /100 WBC (0.0-0.2); Platelet Count 313 K/mm3 (150-400); RDW Coefficient Variation 18.3 % (11.7-14.2); RDW Standard Deviation 61.6 fL (35.1-46.3)
[2024-12-09 22:24] LABS: Alanine Aminotransfer (ALT/SGP 30.0 U/L (12-78); Albumin, Blood 2.5 g/dL (3.4-5.0); Albumin/Globulin Ratio 0.7 (0.8-1.8); Anion Gap 9.0 mmol/L (3-11); Aspartate Aminotrans (AST/SGOT 43.0 U/L (12-37); Bilirubin, Total 0.3 mg/dL (0.1-1.0); Blood Urea Nitrogen 10.0 mg/dL (8-24); CO2, Blood 26.0 mmol/L (21-32); Calcium, Blood 9.2 mg/dL (8.5-10.1); Chloride, Blood 103.0 mmol/L (98-108); Creatinine, Blood 0.45 mg/dL (0.40-1.00); Globulin, Blood 3.6 g/dL (2.2-4.0); Glucose, Blood 105.0 mg/dL (70-99); Potassium, Blood 3.8 mmol/L (3.5-5.5); Sodium, Blood 134.0 mmol/L (136-145); Total Protein, Blood 6.1 g/dL (6.4-8.2)
[2024-12-09] MEDS ORDERED: FentaNYL Citrate 50 MCG/ML 2 ML Injection IV PRN (23:30)
[2024-12-10] MEDS ORDERED: NS 1,000 ML IV SCH ×2 (01:40→03:00)
[2024-12-10] MEDS ORDERED: PANT20 PO (01:42)
[2024-12-10] MEDS ORDERED: SPIR50 PO (01:42)
[2024-12-10] MEDS ORDERED: HYDHCL25 PO (01:43)
[2024-12-10] MEDS ORDERED: BUSP5 PO (01:43)
[2024-12-10 01:57] LABS: Source, Urine Clean Catch
[2024-12-10 02:04] LABS: Bilirubin, Urine Neg (Neg); Glucose Qualitative, Urine Neg (Neg); Ketones, Urine Neg (Neg); Leukocyte Esterase, Urine 3+ (Neg); Protein, Urine 1+ (Neg); Specific Gravity, Urine 1.010 (1.003-1.022); Urobilinogen, Urine NORM (Normal)
[2024-12-10 02:09] LABS: Color, Urine Pale Yellow (P-Yellow)
[2024-12-10 02:10] LABS: Red Blood Cells, Urine Not Seen /hpf (0-2)
[2024-12-10] MEDS ORDERED: Naloxone HCl 0.4MG / ML 1ML Vial IV PRN (02:10)
[2024-12-10] MEDS ORDERED: Ondansetron HCl 2 MG / ML 2ML Vial IV PRN (02:10)
[2024-12-10] MEDS ORDERED: FentaNYL Citrate 50 MCG/ML 2 ML Injection IV PRN (02:10)
[2024-12-10] MEDS ORDERED: HYDROcodone 5-APAP 325 TAB PO PRN ×2 (02:40→17:25)
[2024-12-10] MEDS ORDERED: HYDROmorphone HCl/Pf 1MG SYR IV PRN (03:20)
[2024-12-10] MEDS ORDERED: Formoterol/Mometasone MDI 5/200 mcg 13 GM INH SCH (03:25)
[2024-12-10] MEDS ORDERED: Tiotropium Bromide 2.5 MCG/ACT MIST INHAL (10 ACT/4 GM) INH SCH (03:30)
[2024-12-10] MEDS ORDERED: Formoterol/Mometasone MDI 5/100 mcg 13 GM INH SCH (03:35)
[2024-12-10 03:37] VITALS: BP 126/73
[2024-12-10] MEDS ORDERED: JUVEN PACKET1 EAC3 PO (04:36)
[2024-12-10] MEDS ORDERED: POTCHL20ER PO (04:39)
--- NOTE | 2024-12-10 05:55 | NUR ---
SHIFT SUMMARY ADMITTED TONIGHT FOR INCREASED UNCONTROLLED ABD PAIN. PT DC'D TO [facility] ON WEDNESDAY, PT REPORTED THEY DIDNT HAVE PAIN MEDS ON HAND TO MEDICATE. NEW OSTOMY PLACED 6/5 TO RLQ. MIDLINE BELOW UMBILICUS SURGICAL SITE W/DEHICENCE. SURGICAL SITE W/8 JERICHO, INCISION SEPERATING AFTER 4TH STAPLE, APPROX QUARTER SIZE ROUND OPEN HOLE AT BOTTM OF INCISION W/3.5CM DEEP WOUND, TUNNELING NOTED W/SLOUGH. SKIN SURROUNDING OSTOMY & INCISION VERY ANGRY RED & TENDER TO TOUCH. PT REPORTS FEELING BLOATED, STATES 12/09 @1400 SHE HAD RECTAL BM & THEN OSTOMY KEPT LEAKING LIQUID AROUND APPLIANCE. APPLIANCE CHANGED IN ER & WOUND CLEANSED UPON ARRIVING TO FLOOR. PICTURES IN CHART. AOX4. VSS. REPORTS 10/10 PAIN, MEDICATED W/1MG IV DILAUDID PRIOR TO WOUND CARE & THEN PAIN LEVEL ABLE TO DECREASE TO 5-6/10 PAIN. DENIES N/V. HYPOACTIVE BT. CALL LIGHT IN REACH & PT ABLE TO MAKE NEEDS KNOWN.
[2024-12-10 05:59] LABS: BASOPHILS ABSOLUTE AUTO 0.05 K/mm3 (0.00-0.23); BASOPHILS PERCENT AUTO 1 % (0-2); EOSINOPHILS ABSOLUTE AUTO 0.04 K/mm3 (0.00-0.68); EOSINOPHILS PERCENT AUTO 0 % (0-6); Hematocrit 34.8 % (33.0-51.0); Hemoglobin 10.6 g/dL (11.5-16.0); IMMATURE GRAN ABSOLUTE AUTO 0.13 K/mm3 (0.00-0.10); IMMATURE GRAN PERCENT AUTO 1 % (0-1); LYMPHOCYTES ABSOLUTE AUTO 2.59 K/mm3 (0.84-5.20); LYMPHOCYTES PERCENT AUTO 28 % (21-46); MONOCYTES ABSOLUTE AUTO 0.89 K/mm3 (0.16-1.47); MONOCYTES PERCENT AUTO 10 % (4-13); Mean Corpuscular HGB Conc 30.5 g/dL (31.5-36.5); Mean Corpuscular Volume 93 fL (80-100); NEUTROPHILS ABSOLUTE AUTO 5.64 K/mm3 (1.96-9.15); NEUTROPHILS PERCENT AUTO 61 % (41-73); NRBC ABSOLUTE 0.00 K/mm3 (0.00-0.02); NRBC Auto 0.0 /100 WBC (0.0-0.2); Platelet Count 290 K/mm3 (150-400); RDW Coefficient Variation 18.1 % (11.7-14.2); RDW Standard Deviation 62.0 fL (35.1-46.3)
[2024-12-10] MEDS ORDERED: Ampicillin Sod/Sulbactam Sod 3 GM in NS 100 ML IV SCH (06:15)
[2024-12-10 06:35] LABS: Alanine Aminotransfer (ALT/SGP 29.0 U/L (12-78); Albumin, Blood 2.5 g/dL (3.4-5.0); Albumin/Globulin Ratio 0.7 (0.8-1.8); Anion Gap 10.0 mmol/L (3-11); Aspartate Aminotrans (AST/SGOT 41.0 U/L (12-37); Bilirubin, Total 0.3 mg/dL (0.1-1.0); Blood Urea Nitrogen 6.0 mg/dL (8-24); CO2, Blood 26.0 mmol/L (21-32); Calcium, Blood 9.1 mg/dL (8.5-10.1); Chloride, Blood 104.0 mmol/L (98-108); Creatinine, Blood 0.48 mg/dL (0.40-1.00); Globulin, Blood 3.7 g/dL (2.2-4.0); Glucose, Blood 101.0 mg/dL (70-99); Potassium, Blood 3.7 mmol/L (3.5-5.5); Sodium, Blood 136.0 mmol/L (136-145); Total Protein, Blood 6.2 g/dL (6.4-8.2)
[2024-12-10 07:40] VITALS: BP 108/97
--- NOTE | 2024-12-10 12:22 | NUR ---
ILEOSTOMY APPLIANCE CHANGED AT THIS TIME. SIGNIFICANT REDNESS AROUND STOMA. PAINFUL WITH CLEANING. MIDLINE DRESSING ALSO CHANGED TO WET TO DRY AT THIS TIME. PLAN IS TO PLACE A WOUND VAC. AWAITING ORDERS AND WILL CHANGE TO VAC PER DR. STOCK. PT TOLERATED WELL AND IS AGREEABLE TO PLAN.
[2024-12-10 14:40] VITALS: BP 119/62
--- NOTE | 2024-12-10 17:13 | NUR ---
SHIFT SUMMARY PT REMAINS PAINFUL BUT IS TOLERABLE WITH EMAR. OSTOMY CONTINUES TO HAVE DARK GREEN/BROWN OUTPUT. PT UP TO BSC INDEPENDENTLY TO VOID. CALLS APPROPRIATLY AND IS TOLERATING DIET. PLAN IS TO PLACE WOUND VAC TODAY.
--- NOTE | 2024-12-10 18:10 | NUR ---
wound vac placed at this time. slight undermining on upper portion of wound around the surgical incision. vac set to -120mmHg. suction achieved. pt tolerated procedure well, currently patient getting up to chair. ostomy remains patent and draining.
[2024-12-10 19:30] VITALS: BP 111/71
[2024-12-10] MEDS ORDERED: Arginine/Glutamine/Calcium Hmb 1 Packet PO SCH (21:00)
--- NOTE | 2024-12-11 02:52 | NUR ---
RN TO ROOM TO ROUND; PT ASLEEP, CONTINUOUS PULSE OX IN PLACE.
[2024-12-11 03:46] VITALS: BP 121/62
--- NOTE | 2024-12-11 05:07 | NUR ---
PT WITH WOUND VAC PLACEMENT YESTERDAY TO MIDLINE INCISION. PT OSTOMY ON RLQ WITH CHANGE TOWARDS BEGINNING OF SHIFT. PT MEDICATED PER EMAR FOR PAIN. PT REQUESTS NEW IV PLACED D/T PAIN WHEN BENDING ARM HOWEVER WHEN THIS RN WAS AVAILABLE TO COMPLETE TASK, PT DEFERRED DUE TO SLEEPING. PT REQUESTED [place]ICK WHILE SLEEPING.
[2024-12-11 05:32] LABS: Hematocrit 31.4 % (33.0-51.0); Hemoglobin 9.9 g/dL (11.5-16.0); Mean Corpuscular HGB Conc 31.5 g/dL (31.5-36.5); Mean Corpuscular Volume 94 fL (80-100); NRBC ABSOLUTE 0.00 K/mm3 (0.00-0.02); NRBC Auto 0.0 /100 WBC (0.0-0.2); Platelet Count 247 K/mm3 (150-400); RDW Coefficient Variation 18.1 % (11.7-14.2); RDW Standard Deviation 62.7 fL (35.1-46.3)
[2024-12-11 06:12] LABS: Anion Gap 6.0 mmol/L (3-11); Blood Urea Nitrogen 5.0 mg/dL (8-24); CO2, Blood 29.0 mmol/L (21-32); Calcium, Blood 8.6 mg/dL (8.5-10.1); Chloride, Blood 108.0 mmol/L (98-108); Creatinine, Blood 0.46 mg/dL (0.40-1.00); Glucose, Blood 93.0 mg/dL (70-99); Potassium, Blood 3.5 mmol/L (3.5-5.5); Sodium, Blood 139.0 mmol/L (136-145)
[2024-12-11 07:40] VITALS: BP 112/57
[2024-12-11 15:19] VITALS: BP 125/65
--- NOTE | 2024-12-11 17:12 | NUR ---
SUMMARY PT'S OSTOMY PUTTING OUT LIGHT BROWN LIQUID DRAINAGE. WOUND VAC TO SUCTION AND DRAINING SS FLUID. PT GETTING UP INDEPENDENTLY TO [facility] [place], WALKING AT EDGE OF BED, SITTING UP INTERMITTENTLY. PT PAIN MEDS CHANGED FROM IV DILAUDID TO SCHEDULED OXYCONTIN. PT REC'D FIRST DOSE. PT ANXIOUS ABOUT PAIN MEDS, WRITING DOWN TIMES OF ADMINISTRATION. CALL LIGHT IN REACH.
[2024-12-11 19:02] VITALS: BP 123/67
[2024-12-11] MEDS ORDERED: Estradiol Vag Cream 0.1 MG/G 42.5 GM Tube VAG SCH ×2 (21:00)
[2024-12-12 03:40] VITALS: BP 130/56
[2024-12-12 05:57] LABS: Hematocrit 33.4 % (33.0-51.0); Hemoglobin 10.4 g/dL (11.5-16.0); Mean Corpuscular HGB Conc 31.1 g/dL (31.5-36.5); Mean Corpuscular Volume 92 fL (80-100); NRBC ABSOLUTE 0.00 K/mm3 (0.00-0.02); NRBC Auto 0.0 /100 WBC (0.0-0.2); Platelet Count 309 K/mm3 (150-400); RDW Coefficient Variation 17.8 % (11.7-14.2); RDW Standard Deviation 60.3 fL (35.1-46.3)
[2024-12-12 06:42] LABS: Anion Gap 10.0 mmol/L (3-11); Blood Urea Nitrogen 5.0 mg/dL (8-24); CO2, Blood 25.0 mmol/L (21-32); Calcium, Blood 8.8 mg/dL (8.5-10.1); Chloride, Blood 105.0 mmol/L (98-108); Creatinine, Blood 0.52 mg/dL (0.40-1.00); Glucose, Blood 109.0 mg/dL (70-99); Potassium, Blood 3.6 mmol/L (3.5-5.5); Sodium, Blood 136.0 mmol/L (136-145)
--- NOTE | 2024-12-12 07:00 | NUR ---
SUMMARY PT HAS HAD PERIPHERAL AND POWER GLIDES PLACED TONIGHT.UNABLE TO MAINTAIN PATENCY.PT CURRENTLY HAS NO IV-PENDING 0600 UNASYN DOSE. DAY DAIRY GRAZER AWARE AND AGREES TO FOLLOW UP.PT HAS RED/WARMTH TO BUTTOCK CHEEKS,LIGHT RASH PLACED EXUFOAM GENTLE ON EACH SIDE.ALSO QUESTION POSSIBLE YEASTBEGINNING? PT C/O LIGHT ITCH. WILL NOTIFY ONCOMING SHIFT.PTS FEET ALSO INCREASE PUFFY TODAY.
[2024-12-12 07:05] VITALS: BP 125/66
--- NOTE | 2024-12-12 10:54 | NUR ---
THIS MACHINE BENDER OFFERED TO SET UP WOUND VAN ON WALKER SO PATIENT CAN AMBULATE AROUND ROOM AND IN HALLS.PATIENT UP TO CHAIR OR BSC THIS AM.WALKED ABOUT 100 FT.PATIENT STATED" MAYBE AFTER LUNCH."
[2024-12-12] MEDS ORDERED: SPIRIVA RESPIMAT4 G2 INH (11:19)
--- NOTE | 2024-12-12 12:51 | NUR ---
RN AND PATIENT HAVE PLANNED TO TEACH FAMILY MEMBERS HOW TO CHANGE OSTOMY APPLIANCE TODAY AT 3 PM TO PREPARE FOR THE PATIENT GOING HOME
[2024-12-12 15:57] VITALS: BP 141/72
--- NOTE | 2024-12-12 19:00 | NUR ---
PATIENT IS ALERT AND ORIENTED AND COOPERATIVE WITH CARE. MEDICATED FOR PAIN PER EMAR. EXCORIATION ON BUTTOCKS, DR. HAGER RECOMMENDS USING BARRIER CREAM. ILEOSTOMY APPLIANCE CHANGED TODAY FOR FAMILY TO LEARN HOW TO DO SO, THE DEVICE THEN PROCEDED TO LEAK RESULTING IN ADDITIONAL CHANGES. PATIENT IS ANXIOUS. WOUND VAC IS IN TACT AND FUNCTIONING PROPERLY. PATIENT IND TO THE BSC. FAMILY AT THE BEDSIDE MOST OF THE DAY. WILL CONTINUE TO MONITOR
[2024-12-12 19:21] VITALS: BP 98/59
[2024-12-12 20:25] VITALS: BP 132/62
[2024-12-13 05:39] VITALS: BP 126/66
--- NOTE | 2024-12-13 06:29 | NUR ---
SHIFT SUMMARY: REPORT FROM TENA VILLALPANDO, ASSUMED CARE OF PT. SCHEDULED MEDICATIONS AND PRN MEDS GIVEN PER EMAR. WOUND VAC AND OSTOMY WITH NO LEAKS T/O NOC. PT ALERT AND ORIENTED, UP AD AGATA IN ROOM. SLEPT WELL T/O NOC. AWAKE AND HAVING SOME ANXIETY. MEDICATED PT FOR PAIN THIS AM. WILL GIVE REPORT TO ONCOMING RN TAKING PT.
[2024-12-13 08:03] VITALS: BP 118/73
[2024-12-13] MEDS ORDERED: Lidocaine HCl 4% Topical Soln 5 MLUDC TOP ONE (11:30)
--- NOTE | 2024-12-13 12:08 | NUR ---
WOUND CARE PREVIOUS ILIOSTOMY AND WOUND VAC REMOVED. MEASUREMENTS OF MIDLINE WOUND OBTAINED - 3.5CM WIDE X 5CM HEIGHT, 3CM DEEP, AND TUNNELING 4.5CM UP INCISION. MEASUREMENTS PROVIDED TO CASE MANAGEMENT FOR HOME WOUND VAC PLACEMENT. NEW ILIOSTOMY DEVICE APPLIED. WET TO DRY PLACED IN MIDLINE WOUND AWAITING HOME WOUND VAC DEVICE BY CASE MANAGEMENT. MD STOCK AT BEDSIDE - NO NEW ORDERS RECEIVED.
[2024-12-13] MEDS ORDERED: BUSP5 PO (12:28)
[2024-12-13] MEDS ORDERED: AMOCLA875 PO (12:28)
[2024-12-13] MEDS ORDERED: JUVEN PACKET1 EAC3 PO (12:28)
[2024-12-13] MEDS ORDERED: Estrace Vagin42.5 GM VAG (12:30)
[2024-12-13] MEDS ORDERED: PANT20 PO (12:31)
[2024-12-13] MEDS ORDERED: OXYC10ER PO (12:31)
[2024-12-13] MEDS ORDERED: SPIR50 PO (12:32)
[2024-12-13] MEDS ORDERED: METAMUCIL MULT660 G2 PO (12:32)
[2024-12-13 14:46] VITALS: BP 133/71
--- NOTE | 2024-12-13 14:50 | NUR ---
REPORT RECEIVED FROM IRASEMA HUMPHREYS. ASSUMED PT CARE AT THIS TIME
--- NOTE | 2024-12-13 14:52 | NUR ---
REPORT GIVEN TO BRIGID VILLALPANDO TO ASSUME CARE AT THIS TIME
--- NOTE | 2024-12-13 15:43 | NUR ---
POST OP: REPORT RECEIVED FROM BURN NURSE. PT DROWSY ON ARRIVAL, FOLLOWS COMMANDS. INCISIONS CDI. PT ABLE TO WALK AND VOID. GIVEN PAIN MEDICATION. VSS. FAMILY AT BEDSIDE AND CALL LIGHT IN REACH
--- NOTE | 2024-12-13 18:21 | NUR ---
SUMMARY: DC DELAY TONIGHT DUE TO CARE MANAGEMENT ISSUES WITH THE WOUND VAC. PLAN IS FOR DC TOMORROW AFTER HOME WOUND VAC PLACED. DR. STOCK MADE AWARE. OK TO USE WET TO DRY DRESSING CHANGE TONIGHT PER DR. STOCK. OTHERWISE NO ACUTE CHANGE, VSS AND PT ABLE TO MAKE NEEDS KNOWN.
--- NOTE | 2024-12-14 00:52 | NUR ---
OSTOMY CHANGED. OSTOMY APPLIANCE CHANGED D/T LEAKING. MIDLINE INCISION REMAINED C/D/I WITHOUT STOOL CONTAMINATION. STOMA BEEFY RED AND RECESSED. SKIN SURROUNDING STOMA IS RED AND IRRITATED BUT IMPROVED SINCE THE LAST TIME THIS RN VISUALIZED SKIN ON PREVIOUS ADMIT. PT TOLERATED OSTOMY CHANGE WELL.
[2024-12-14 01:40] VITALS: BP 125/70
[2024-12-14 03:25] VITALS: BP 135/70
[2024-12-14 07:26] VITALS: BP 125/76
--- NOTE | 2024-12-14 08:35 | NUR ---
SHIFT SUMMARY NOC. PT A/O X4. ILEOSTOMY CHANGED X1 AND PRODUCING OUTPUT. PT VOIDING URINE, TOLERATING DIET. MIDLINE IS C/D/I. PT MEDICATED PER EMAR WITH REPORTED RELIEF OF SX. MAKES NEEDS KNOWN, CALL LIGHT IN REACH.
--- NOTE | 2024-12-14 14:30 | NUR ---
SHIFT SUMMARY AND DISCHARGE PATIENT ALERT AND INTERACTIVE. PATIENT ABLE TO AMBULATE TO BATHROOM WITH STAND BY ASSIST. PATIENT DISCHARGING HOME TO HAVE HOME HEALTH FOLLOW UP FOR WOUND CARE WITH WOUND VAC. WOUND VAC SENT WITH PATIENT TO BE PLACED BY HOME HEALTH. PATIENT MEDICATED FOR PAIN PER ORDERS. DISCHARGE ORDERS REVIEWED WITH PATIENT. BUTTOCKS EXCORIATED. BARRIER OINTMENT USED NEEDED. PATEINT STATED THAT IT WAS IMPROVING BUT STILL ITCHING. PROVIDED EDUCATION RELATED TO ILEOSTOMY. ENCOURAGED PATIENT TO TALK WITH HOME HEALTH RELATED TO OPTIONS AND SUPPLIES. PATIENT STATES SHE HAS NOT CHANGED IT HERSELF YET BECAUSE OF BEING SO WEAK. SHE STATES THAT SHE HAS FAMILY MEMBERS THAT HELP HER.
== END 2024-12-14 14:49 | disposition home health service (06) | DRG 920 ==
LOC: ER 21:07 → SURS 12-10 02:05 → MEDS 12-10 02:05 → SURS 12-10 03:00
PROVIDERS: Emergency Medicine; Internal Medicine; Student in an Organized Health Care Education/Training Program; ADMIT Student in an Organized Health Care Education/Training Program
DX: T81.31XA Disruption of external operation (surgical) wound, not elsewhere classified, initial encounter (principal); E87.1 Hypo-osmolality and hyponatremia; L03.311 Cellulitis of abdominal wall; T81.41XA Infection following a procedure, superficial incisional surgical site, initial encounter; Y83.8 Other surgical procedures as the cause of abnormal reaction of the patient, or of later complication, without mention of misadventure at the time of the procedure; J44.9 Chronic obstructive pulmonary disease, unspecified; K21.9 Gastro-esophageal reflux disease without esophagitis; F41.9 Anxiety disorder, unspecified; F17.200 Nicotine dependence, unspecified, uncomplicated; E86.0 Dehydration; E83.42 Hypomagnesemia; F32.A Depression, unspecified; D64.9 Anemia, unspecified; B37.2 Candidiasis of skin and nail; Z90.49 Acquired absence of other specified parts of digestive tract; Z85.72 Personal history of non-Hodgkin lymphomas; Z88.5 Allergy status to narcotic agent; Z88.8 Allergy status to other drugs, medicaments and biological substances; Z91.040 Latex allergy status; Z79.51 Long term (current) use of inhaled steroids; Z93.2 Ileostomy status
CPT/HCPCS: 36415; 74177; 80048; 80053; 81001; 83735; 85025; 85027; 87086; 94640; 94664; 94760; 94762; 96374; 96376; 99285; A9270; C1751; G0378; J0295; J1171; J2470; J3010; J7030; Q9967

== ENCOUNTER → 2024-12-25 | Outpatient (CLI) | payer OTHER ==
[~2024-12-25] MED LIST changes: +AMOCLA875 PO; +BUSP5 PO; +Estrace Vagin42.5 GM VAG; +HYDHCL25 PO; +JUVEN PACKET1 EAC3 PO; +METAMUCIL MULT660 G2 PO; +OXYC10ER PO; +PANT20 PO; +POTCHL20ER PO; +SPIR50 PO; +SPIRIVA RESPIMAT4 G2 INH
[2024-12-26 10:20] LABS: Bacterial Vaginosis PCR Negative (NEGATIVE); Candida glabrata-krusei, PCR NOT DETECTED (NOT DETECT)
[2024-12-26 10:21] LABS: Candida Group, PCR DETECTED (NOT DETECT)
== END ==
LOC: LAB SHORT 18:41 → LAB 18:41
PROVIDERS: Nurse Practitioner Family
DX: A60.04 Herpesviral vulvovaginitis (principal)
CPT/HCPCS: 81515

== ENCOUNTER 2024-12-29 03:52 | Inpatient (IN) | payer OTHER ==
[~2024-12-29] VITALS: Ht 162.6 cm; Wt 60.8 kg
[2024-12-29 05:14] LABS: BASOPHILS ABSOLUTE AUTO 0.06 K/mm3 (0.00-0.23); BASOPHILS PERCENT AUTO 0 % (0-2); EOSINOPHILS ABSOLUTE AUTO 0.05 K/mm3 (0.00-0.68); EOSINOPHILS PERCENT AUTO 0 % (0-6); Hematocrit 40.9 % (33.0-51.0); Hemoglobin 14.1 g/dL (11.5-16.0); IMMATURE GRAN ABSOLUTE AUTO 0.11 K/mm3 (0.00-0.10); IMMATURE GRAN PERCENT AUTO 1 % (0-1); LYMPHOCYTES ABSOLUTE AUTO 4.15 K/mm3 (0.84-5.20); LYMPHOCYTES PERCENT AUTO 25 % (21-46); MONOCYTES ABSOLUTE AUTO 1.52 K/mm3 (0.16-1.47); MONOCYTES PERCENT AUTO 9 % (4-13); Mean Corpuscular HGB Conc 34.5 g/dL (31.5-36.5); Mean Corpuscular Volume 82 fL (80-100); NEUTROPHILS ABSOLUTE AUTO 10.85 K/mm3 (1.96-9.15); NEUTROPHILS PERCENT AUTO 65 % (41-73); NRBC ABSOLUTE 0.00 K/mm3 (0.00-0.02); NRBC Auto 0.0 /100 WBC (0.0-0.2); Platelet Count 438 K/mm3 (150-400); RDW Coefficient Variation 15.1 % (11.7-14.2); RDW Standard Deviation 45.3 fL (35.1-46.3)
[2024-12-29 06:13] LABS: Alanine Aminotransfer (ALT/SGP 152.0 U/L (12-78); Albumin, Blood 3.7 g/dL (3.4-5.0); Albumin/Globulin Ratio 0.9 (0.8-1.8); Anion Gap 16.0 mmol/L (3-11); Aspartate Aminotrans (AST/SGOT 101.0 U/L (12-37); Bilirubin, Total 0.4 mg/dL (0.1-1.0); Blood Urea Nitrogen 52.0 mg/dL (8-24); CO2, Blood 21.0 mmol/L (21-32); Calcium, Blood 10.2 mg/dL (8.5-10.1); Chloride, Blood 84.0 mmol/L (98-108); Creatinine, Blood 1.27 mg/dL (0.40-1.00); Globulin, Blood 4.1 g/dL (2.2-4.0); Glucose, Blood 152.0 mg/dL (70-99); Potassium, Blood 3.6 mmol/L (3.5-5.5); Sodium, Blood 117.0 mmol/L (136-145); Total Protein, Blood 7.8 g/dL (6.4-8.2)
[2024-12-29] MEDS ORDERED: NS 1,000 ML IV SCH (06:45)
[2024-12-29] MEDS ORDERED: Enoxaparin 40 MG/0.4 ML SYR SC SCH (09:00)
[2024-12-29] MEDS ORDERED: Tiotropium Bromide 2.5 MCG/ACT MIST INHAL (10 ACT/4 GM) INH SCH (12:55)
[2024-12-29] MEDS ORDERED: HYDROcodone 5-APAP 325 TAB PO PRN (12:55)
[2024-12-29 13:00] VITALS: BP 101/64
[2024-12-29] MEDS ORDERED: Polyethylene Glycol 3350 17 gm PO PRN (13:00)
[2024-12-29] MEDS ORDERED: Formoterol/Mometasone MDI 5/200 mcg 13 GM INH SCH (13:05)
--- NOTE | 2024-12-29 13:53 | NUR ---
CALL TO SENIOR CORPORATE ACCOUNTANT DR CONNER REPORTED RECENT NA: 122, UNCHANGED FROM PRIOR. PER DR CONNER PLEASE CALL WITH NA RESULTS IF NA INCREASES AT NEXT LAB DRAW. OR SIGNIFICANT REDUCTION IN NA LEVELS.
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
[2024-12-29] MEDS ORDERED: FentaNYL Citrate 50 MCG/ML 2 ML Injection IV PRN (14:45)
[2024-12-29] MEDS ORDERED: NS 500 ML IV SCH (15:40)
[2024-12-29] MEDS ORDERED: Sucralfate 1000MG / 10ML UD BTL PO SCH ×2 (16:30→16:38)
[2024-12-29] MEDS ORDERED: OxyCODONE 5 mg/Acetamin 325 mg TABLET PO PRN (16:35)
--- NOTE | 2024-12-29 17:53 | NUR ---
DR Jauregui - PROFESSOR OF PATHOLOGY SEEING PT VIA VIDEO VISIT. VERBAL ORDER TO DC SPIRONLACTONE. [facility] D/C'D
--- NOTE | 2024-12-29 18:32 | NUR ---
Shift summary. Pt arrived to ICU alert and oriented, VS stable. Wound Vac in place, no leaks, lower mid abdomen surgical site. End ileostomy appliance in place. Pt up to commode several times throughout shift, able to ambulate independently with walker. Wound vac canister, line and dressing/foam changed this afternoon with PRN dose of fentanyl for pain, see emar. No acute events this shift, VS stable. Dr. Thomas rounded on pt via teleconference late this afternoon, no new orders. See chart for further details.
[2024-12-29] MEDS ORDERED: Banana Flakes/Tos 1 EA Powder Pack PO SCH (21:00)
[2024-12-29] MEDS ORDERED: Estradiol Vag Cream 0.1 MG/G 42.5 GM Tube VAG SCH (21:00)
[2024-12-29] MEDS ORDERED: Arginine/Glutamine/Calcium Hmb 1 Packet PO SCH (21:00)
[2024-12-29 22:31] VITALS: BP 111/62
[2024-12-30] VITALS: BP 104/74
[2024-12-30] LABS: C DIFFICILE DNA NEGATIVE (Negative)
--- NOTE | 2024-12-30 00:36 | NUR ---
TRANSFER PATIENT ARRIVED TO PCU 02 FROM ICU 13. PATIENT ALERT AND ORIENTED X4. ON ROOM AIR WITH CLEAR LUNG SOUNDS. STAND BY ASSIST FOR TRANSFERS, GENERALIZED WEAKNESS NOTED. WOUND VAC IN TACT. OSTOMY DRAINING AND FREE OF REDNESS/SWELLING.
[2024-12-30 03:39] VITALS: BP 117/72
[2024-12-30 04:09] LABS: BASOPHILS ABSOLUTE AUTO 0.05 K/mm3 (0.00-0.23); BASOPHILS PERCENT AUTO 1 % (0-2); EOSINOPHILS ABSOLUTE AUTO 0.15 K/mm3 (0.00-0.68); EOSINOPHILS PERCENT AUTO 1 % (0-6); Hematocrit 34.7 % (33.0-51.0); Hemoglobin 12.1 g/dL (11.5-16.0); IMMATURE GRAN ABSOLUTE AUTO 0.06 K/mm3 (0.00-0.10); IMMATURE GRAN PERCENT AUTO 1 % (0-1); LYMPHOCYTES ABSOLUTE AUTO 2.36 K/mm3 (0.84-5.20); LYMPHOCYTES PERCENT AUTO 22 % (21-46); MONOCYTES ABSOLUTE AUTO 1.08 K/mm3 (0.16-1.47); MONOCYTES PERCENT AUTO 10 % (4-13); Mean Corpuscular HGB Conc 34.9 g/dL (31.5-36.5); Mean Corpuscular Volume 82 fL (80-100); NEUTROPHILS ABSOLUTE AUTO 7.22 K/mm3 (1.96-9.15); NEUTROPHILS PERCENT AUTO 66 % (41-73); NRBC ABSOLUTE 0.00 K/mm3 (0.00-0.02); NRBC Auto 0.0 /100 WBC (0.0-0.2); Platelet Count 318 K/mm3 (150-400); RDW Coefficient Variation 15.0 % (11.7-14.2); RDW Standard Deviation 45.8 fL (35.1-46.3)
[2024-12-30 04:26] LABS: Anion Gap 11.0 mmol/L (3-11); Blood Urea Nitrogen 37.0 mg/dL (8-24); CO2, Blood 26.0 mmol/L (21-32); Calcium, Blood 9.8 mg/dL (8.5-10.1); Chloride, Blood 89.0 mmol/L (98-108); Creatinine, Blood 0.93 mg/dL (0.40-1.00); Glucose, Blood 124.0 mg/dL (70-99); Magnesium, Blood 1.6 mg/dL (1.6-2.4); Phosphorus, Blood 3.5 mg/dL (2.5-4.9); Potassium, Blood 2.9 mmol/L (3.5-5.5); Sodium, Blood 123.0 mmol/L (136-145)
--- NOTE | 2024-12-30 06:03 | NUR ---
SHIFT SUMMARY PATIENT ALERT AND ORIENTED X4. MEDICATED PER EMAR FOR PAIN AND ANXIETY. WAS NOTED TO HAVE POTASSIUM OF 2.[address] NEVAREZ NOTIFIED, REPLACEMENT ORDER OBTAINED. VITAL SIGNS STABLE. ON ROOM AIR. WILL CONTINUE TO MONITOR. CALL LIGHT WITHIN REACH.
[2024-12-30 08:21] VITALS: BP 111/67
[2024-12-30] MEDS ORDERED: Miconazole Nitrate 2% 85 GM PWD TOP SCH (09:00)
[2024-12-30] MEDS ORDERED: Lidocaine 4% 1 Patch TOP SCH (13:30)
[2024-12-30] MEDS ORDERED: Prochlorperazine Edisylate 10 mg Vial IV PRN (13:35)
--- NOTE | 2024-12-30 16:14 | NUR ---
MD NOTIFIED OF POTASSIUM LEVEL RESULTS. POTASSIUM 40 MEQ IV ONCE TO BE ORDERED.
[2024-12-30 16:49] VITALS: BP 107/65
[2024-12-30] MEDS ORDERED: NS 250 ML IV PRN (17:00)
--- NOTE | 2024-12-30 18:44 | NUR ---
SHIFT SUMMARTY PT A/OX4, ANXIOUS AT TIMES. PT ABLE TO EXPRESS NEEDS AND USES CALL LIGHT APPROPIATE. PT REPORTED PAIN TO BELLY AND BACK, TREATED PER EMAR. PT EXPRESS AANXIETY RELATED TO HER DOSE OF PAIN MED, LOWER DOSE GIVEN PER REQUEST. PT CONTINUED TO REPORT THAT THE DOSE "MAKES ME FEEL LIKE I'M ON A LONG HIGH." PT REFUSED SOME MEDS,SEE EMAR. PT VSS THROGUHOUT SHIFT WITH O2 SATS IN THE 90'S ON RA. NO REPORT OF CHEST PAIN/PRESSURE THROUGHOUT SHIFT. NO REPORT OF SOB/DYSPNEA THROUGHOUT SHIFT. PT OSTOMY CHANGED THIS SHIFT PER PT REQUEST DUE TO IRRITATION. PT SELF EMPTIED OSTOMY PER REQUEST. PT POTASSIUM LOW THIS MORNING, POTASSIUM ORDERED AND GIVEN THIS MORNING. POTASSIUM REDRAW DONE, POTASSIUM STILL SLIGHTLY LOW AND POTASSIUM IV ORDERED AND GIVEN. PT REPORTED FREQUENT NAUSEA THROUGHOUT SHIFT, TREATED PER EMAR. WOUND VAC TO ABD STILL IN PLACE WITH NO LEAKS. PT FAMILY TO BEDSIDE TOWARDS END OF SHIFT AND UPDATED ON PT AND PLAN OF CARE. PT INDEPENDENT IN ROOM , TOLERATED WELL.
[2024-12-30 20:48] VITALS: BP 110/58
--- NOTE | 2024-12-30 21:34 | NUR ---
REPORT GIVEN TO RELIEF NURSE IN 357. ASSESSMENT COMPLETED, PT GIVEN PM MEDICATIONS W WATER BUT PT REFUSED IMTIAZ AND BANANA FLAKES. PT VOIDED 2000 CC URINE AND PRN PAIN MEDICATION W A PERCOCET ADMINISTERED FOR ABDOMINAL PAIN. PT UPDATED ON MOVE AND PT CALLED FAMILY MEMBER WITH NEW ROOM NUMBER. AM LABS ORDERED. PT REFUSED LAST OF IV K FOR PAIN IN ARM THOUGH MEDICATION DILUTED. ENCOURAGED TO CONTINUE METAMUCIL, IMMODIUM AND BANANA FLAKES FOR LESSENING AMOUNT OF STOOL OUTPUT.
[2024-12-30 21:43] VITALS: BP 112/77
[2024-12-31 04:16] VITALS: BP 98/65
[2024-12-31 04:45] LABS: BASOPHILS ABSOLUTE AUTO 0.05 K/mm3 (0.00-0.23); BASOPHILS PERCENT AUTO 1 % (0-2); EOSINOPHILS ABSOLUTE AUTO 0.17 K/mm3 (0.00-0.68); EOSINOPHILS PERCENT AUTO 2 % (0-6); Hematocrit 37.3 % (33.0-51.0); Hemoglobin 12.6 g/dL (11.5-16.0); IMMATURE GRAN ABSOLUTE AUTO 0.05 K/mm3 (0.00-0.10); IMMATURE GRAN PERCENT AUTO 1 % (0-1); LYMPHOCYTES ABSOLUTE AUTO 1.84 K/mm3 (0.84-5.20); LYMPHOCYTES PERCENT AUTO 21 % (21-46); MONOCYTES ABSOLUTE AUTO 0.96 K/mm3 (0.16-1.47); MONOCYTES PERCENT AUTO 11 % (4-13); Mean Corpuscular HGB Conc 33.8 g/dL (31.5-36.5); Mean Corpuscular Volume 84 fL (80-100); NEUTROPHILS ABSOLUTE AUTO 5.89 K/mm3 (1.96-9.15); NEUTROPHILS PERCENT AUTO 66 % (41-73); NRBC ABSOLUTE 0.00 K/mm3 (0.00-0.02); NRBC Auto 0.0 /100 WBC (0.0-0.2); Platelet Count 273 K/mm3 (150-400); RDW Coefficient Variation 14.7 % (11.7-14.2); RDW Standard Deviation 45.0 fL (35.1-46.3)
--- NOTE | 2024-12-31 04:50 | NUR ---
TRANSER NOTE/SHIFT SUMMARY PT TRANSFERRED FROM PCU TO MEDICAL FLOOR RM#[id number] @2100. PT BROUGHT ALL HER BELONINGS WITH HER. PT TRANSFERRED INDEPENDENTLY TO THE HOSPITAL BED. PT REFUSED NON-SKID SOCKS, BED AT THE LOWEST POSITION, CALL LIGHT W/I REACH. WOUND VAC INTACT, PT EMPTIES ILEOSTOMY BAG INDEPENDENTLY, DOES NOT LET STAFF KNOW EXACT OUTPUT. STOOL IS LOOSE, BROWN IN COLOR. MID ABD INSCISION SITE CHUTE TAPPER. PT DENIES PAIN, N/V AT HS. MIDNIGHT IMMODIUM ADMINISTERED, PT REFUSED 0400 DOSE. RED BUTTOCKS, SKIN INTACT, MICONAZOLE POWDER APPLIED AT HS. ENCOURAGED REPOSITIONING, OFFERED PILLOWS FOR COMFORT, PT DENIED THE NEED OF. PRN TRAZADONE ADMINISTERED AT HS, PT REPORTS "NO SLEEP SINCE ADMISSION". PT RESTING WELL, RR EVEN, UNLABORED. UPDATED PHOTOGRAPHIC PLATEMAKER THIS MORNING.
[2024-12-31 05:08] LABS: Anion Gap 11.0 mmol/L (3-11); Blood Urea Nitrogen 22.0 mg/dL (8-24); CO2, Blood 25.0 mmol/L (21-32); Calcium, Blood 10.1 mg/dL (8.5-10.1); Chloride, Blood 97.0 mmol/L (98-108); Creatinine, Blood 0.67 mg/dL (0.40-1.00); Glucose, Blood 112.0 mg/dL (70-99); Magnesium, Blood 1.6 mg/dL (1.6-2.4); Phosphorus, Blood 2.9 mg/dL (2.5-4.9); Potassium, Blood 4.1 mmol/L (3.5-5.5); Sodium, Blood 129.0 mmol/L (136-145)
[2024-12-31 07:25] VITALS: BP 104/62
[2024-12-31] MEDS ORDERED: Multivitamins 1 Tab PO SCH (09:00)
[2024-12-31] MEDS ORDERED: METAMUCIL MULT660 G2 PO (13:02)
[2024-12-31] MEDS ORDERED: LIDO700A20 TOP (13:04)
[2024-12-31] MEDS ORDERED: BANATROL PLUS1 EAC1 PO (13:04)
[2024-12-31] MEDS ORDERED: LOPE2C PO (13:05)
[2024-12-31] MEDS ORDERED: MICONAZOLE NITR85 GM TOP (13:07)
[2024-12-31] MEDS ORDERED: ONE DAILY MUL400 MCG PO (13:08)
[2024-12-31] MEDS ORDERED: POTA10T PO (13:09)
[2024-12-31] MEDS ORDERED: B-1100 M1 PO (13:12)
[2024-12-31] MEDS ORDERED: SUCR1 PO (13:12)
[2024-12-31] MEDS ORDERED: TRAZ50 PO (13:12)
--- NOTE | 2024-12-31 15:48 | NUR ---
DISCHARGE SUMMARY PATIENT DISCHARGED WITH TO DRIVE. RESUMPTION OF HOME HEALTH. PERSONAL WOUND VAC INTACT AND FUNCTIONING ON DISCHARGE, ALL ITEMS SENT HOME. DISCHARGE PACKET GIVEN AND REVIEWED, VERBALIZED UNDERSTANDING, QUESTIONS ANSWERED. IV REMOVED WITHOUT COMPLICATION.
== END 2024-12-31 13:54 | disposition home or self-care (01) | DRG 640 ==
LOC: ER 03:52 → ICUE 08:26 → PCU 08:26 → ICUE 10:21 → PCU 12-30 00:24 → MEDS 12-30 21:30
PROVIDERS: Internal Medicine; Student in an Organized Health Care Education/Training Program; ADMIT Family Medicine
DX: E87.1 Hypo-osmolality and hyponatremia (principal); E43 Unspecified severe protein-calorie malnutrition; T81.328A Disruption or dehiscence of closure of other specified internal operation (surgical) wound, initial encounter; N17.9 Acute kidney failure, unspecified; K21.9 Gastro-esophageal reflux disease without esophagitis; F17.210 Nicotine dependence, cigarettes, uncomplicated; J44.9 Chronic obstructive pulmonary disease, unspecified; E87.8 Other disorders of electrolyte and fluid balance, not elsewhere classified; Z91.040 Latex allergy status; Z88.8 Allergy status to other drugs, medicaments and biological substances; Z79.899 Other long term (current) drug therapy; Z79.891 Long term (current) use of opiate analgesic; Z79.2 Long term (current) use of antibiotics; Z87.442 Personal history of urinary calculi; Z85.72 Personal history of non-Hodgkin lymphomas; Z90.49 Acquired absence of other specified parts of digestive tract; Z98.51 Tubal ligation status; Z98.890 Other specified postprocedural states; Z74.01 Bed confinement status; Z68.23 Body mass index [BMI] 23.0-23.9, adult
CPT/HCPCS: 36415; 80048; 80053; 83735; 83930; 84100; 84132; 84295; 85025; 87493; 94640; 94664; 94760; 94762; 96360; 99284-25; A9270; J0780; J1650; J3010; J3480; J7030; J7040; J7050

== ENCOUNTER → 2025-01-23 | Day surgery (SDC) | payer OTHER ==
[~2025-01-23] MED LIST changes: +B-1100 M1 PO; +BANATROL PLUS1 EAC1 PO; +LIDO700A20 TOP; +LOPE2C PO; +MICONAZOLE NITR85 GM TOP; +ONE DAILY MUL400 MCG PO; +POTA10T PO; +SUCR1 PO; +TRAZ50 PO
== END ==
LOC: WOUND 04:21
DX: T81.31XD Disruption of external operation (surgical) wound, not elsewhere classified, subsequent encounter (principal); Z85.72 Personal history of non-Hodgkin lymphomas; Z92.21 Personal history of antineoplastic chemotherapy; Z93.2 Ileostomy status; Z88.5 Allergy status to narcotic agent; Z88.8 Allergy status to other drugs, medicaments and biological substances; Z91.040 Latex allergy status
CPT/HCPCS: A6213; G0463

== ENCOUNTER 2025-01-25 01:51 | Emergency (ER) | payer OTHER ==
[~2025-01-25] VITALS: Ht 160 cm; Wt 58.1 kg
[2025-01-25 02:24] LABS: BASOPHILS ABSOLUTE AUTO 0.06 K/mm3 (0.00-0.23); BASOPHILS PERCENT AUTO 0 % (0-2); EOSINOPHILS ABSOLUTE AUTO 0.07 K/mm3 (0.00-0.68); EOSINOPHILS PERCENT AUTO 0 % (0-6); Hematocrit 41.0 % (33.0-51.0); Hemoglobin 13.7 g/dL (11.5-16.0); IMMATURE GRAN ABSOLUTE AUTO 0.15 K/mm3 (0.00-0.10); IMMATURE GRAN PERCENT AUTO 1 % (0-1); LYMPHOCYTES ABSOLUTE AUTO 3.12 K/mm3 (0.84-5.20); LYMPHOCYTES PERCENT AUTO 16 % (21-46); MONOCYTES ABSOLUTE AUTO 1.04 K/mm3 (0.16-1.47); MONOCYTES PERCENT AUTO 5 % (4-13); Mean Corpuscular HGB Conc 33.4 g/dL (31.5-36.5); Mean Corpuscular Volume 82 fL (80-100); NEUTROPHILS ABSOLUTE AUTO 14.99 K/mm3 (1.96-9.15); NEUTROPHILS PERCENT AUTO 77 % (41-73); NRBC ABSOLUTE 0.00 K/mm3 (0.00-0.02); NRBC Auto 0.0 /100 WBC (0.0-0.2); Platelet Count 491 K/mm3 (150-400); RDW Coefficient Variation 14.2 % (11.7-14.2); RDW Standard Deviation 42.3 fL (35.1-46.3)
[2025-01-25] MEDS ORDERED: Ondansetron HCl 2 MG / ML 2ML Vial IV ONE ×2 (02:30→02:50)
[2025-01-25 02:45] LABS: Alanine Aminotransfer (ALT/SGP 106.0 U/L (12-78); Albumin, Blood 2.9 g/dL (3.4-5.0); Albumin/Globulin Ratio 0.6 (0.8-1.8); Anion Gap 14.0 mmol/L (3-11); Aspartate Aminotrans (AST/SGOT 84.0 U/L (12-37); Bilirubin, Total 0.3 mg/dL (0.1-1.0); Blood Urea Nitrogen 13.0 mg/dL (8-24); CO2, Blood 23.0 mmol/L (21-32); Calcium, Blood 9.9 mg/dL (8.5-10.1); Chloride, Blood 99.0 mmol/L (98-108); Creatinine, Blood 0.66 mg/dL (0.40-1.00); Globulin, Blood 4.5 g/dL (2.2-4.0); Glucose, Blood 169.0 mg/dL (70-99); Potassium, Blood 3.5 mmol/L (3.5-5.5); Sodium, Blood 132.0 mmol/L (136-145); Total Protein, Blood 7.4 g/dL (6.4-8.2)
[2025-01-25] MEDS ORDERED: Morphine Sulfate 4 MG/1 ML Injection IV ONE ×2 (02:50→04:35)
[2025-01-25] MEDS ORDERED: FentaNYL Citrate 50 MCG/ML 2 ML Injection IV ONE (02:55)
[2025-01-25 03:12] LABS: Source, Urine Clean Catch
[2025-01-25 03:39] LABS: Glucose Qualitative, Urine Neg (Neg); Ketones, Urine Neg (Neg); Leukocyte Esterase, Urine 3+ (Neg); Protein, Urine 3+ (Neg); Specific Gravity, Urine 1.020 (1.003-1.022); Urobilinogen, Urine 1+ (Normal)
[2025-01-25 03:55] LABS: Bilirubin, Urine 1+ (Neg); Color, Urine Amber (P-Yellow)
[2025-01-25 03:56] LABS: White Blood Cells, Urine 25-50 /hpf (0-5)
[2025-01-25 05:00] VITALS: BP 121/71
[2025-01-25] MEDS ORDERED: METO5A PO (05:19)
[2025-01-25] MEDS ORDERED: CEPH500 PO (05:19)
== END 2025-01-25 05:32 | disposition home or self-care (01) ==
LOC: ER 01:51
PROVIDERS: Student in an Organized Health Care Education/Training Program
DX: N30.00 Acute cystitis without hematuria (principal); L98.499 Non-pressure chronic ulcer of skin of other sites with unspecified severity; K21.9 Gastro-esophageal reflux disease without esophagitis; F17.210 Nicotine dependence, cigarettes, uncomplicated; Z93.3 Colostomy status; Z91.040 Latex allergy status; Z88.5 Allergy status to narcotic agent; Z88.8 Allergy status to other drugs, medicaments and biological substances; Z79.51 Long term (current) use of inhaled steroids; Z79.899 Other long term (current) drug therapy
CPT/HCPCS: 74177; 80053; 81001; 83690; 85025; 87077; 87086; 87186; 93005; 93010; 96374-59; 96375; 99285-25; A9270; J2270; J2405; J3010; J7120; Q9967

== ENCOUNTER 2025-01-31 07:44 | Day surgery (SDC) | payer OTHER ==
[~2025-01-31 07:44] MED LIST changes: +METO5A PO
== END 2025-01-31 23:00 | disposition home or self-care (01) ==
LOC: WOUND 07:44
DX: T81.31XA Disruption of external operation (surgical) wound, not elsewhere classified, initial encounter (principal); S31.103A Unspecified open wound of abdominal wall, right lower quadrant without penetration into peritoneal cavity, initial encounter; C82.90 Follicular lymphoma, unspecified, unspecified site; Z90.49 Acquired absence of other specified parts of digestive tract; Z93.2 Ileostomy status; X58.XXXA Exposure to other specified factors, initial encounter; K57.80 Diverticulitis of intestine, part unspecified, with perforation and abscess without bleeding
CPT/HCPCS: 36415; 80069; G0463

== ENCOUNTER 2025-02-07 04:22 | Day surgery (SDC) | payer OTHER | END 2025-02-07 23:00 | disposition home or self-care (01) | LOC: WOUND 04:22 | DX: T81.31XD Disruption of external operation (surgical) wound, not elsewhere classified, subsequent encounter (principal); S31.109D Unspecified open wound of abdominal wall, unspecified quadrant without penetration into peritoneal cavity, subsequent encounter; C82.90 Follicular lymphoma, unspecified, unspecified site; Z93.2 Ileostomy status; Z90.49 Acquired absence of other specified parts of digestive tract; K57.80 Diverticulitis of intestine, part unspecified, with perforation and abscess without bleeding | CPT/HCPCS: 36415; 80069; G0463 ==

== ENCOUNTER 2025-02-14 02:50 | Day surgery (SDC) | payer OTHER ==
[2025-02-14] MEDS ORDERED: Lidocaine HCl 4% Cream 5 GM ONE (11:05)
== END 2025-02-14 23:00 | disposition home or self-care (01) ==
LOC: WOUND 02:50
DX: T81.31XA Disruption of external operation (surgical) wound, not elsewhere classified, initial encounter (principal); S31.103A Unspecified open wound of abdominal wall, right lower quadrant without penetration into peritoneal cavity, initial encounter; K57.80 Diverticulitis of intestine, part unspecified, with perforation and abscess without bleeding; C82.90 Follicular lymphoma, unspecified, unspecified site; X58.XXXA Exposure to other specified factors, initial encounter; Z93.2 Ileostomy status
CPT/HCPCS: 36415; 80069; A9270; G0463

== ENCOUNTER 2025-02-21 11:36 | Emergency (ER) | payer OTHER ==
[~2025-02-21] VITALS: Ht 162.6 cm; Wt 56.7 kg
[2025-02-21] MEDS ORDERED: Ondansetron HCl 2 MG / ML 2ML Vial IV ONE (12:30)
[2025-02-21 12:42] LABS: BASOPHILS ABSOLUTE AUTO 0.04 K/mm3 (0.00-0.23); BASOPHILS PERCENT AUTO 0 % (0-2); EOSINOPHILS ABSOLUTE AUTO 0.06 K/mm3 (0.00-0.68); EOSINOPHILS PERCENT AUTO 1 % (0-6); Hematocrit 39.7 % (33.0-51.0); Hemoglobin 13.6 g/dL (11.5-16.0); IMMATURE GRAN ABSOLUTE AUTO 0.09 K/mm3 (0.00-0.10); IMMATURE GRAN PERCENT AUTO 1 % (0-1); LYMPHOCYTES ABSOLUTE AUTO 1.27 K/mm3 (0.84-5.20); LYMPHOCYTES PERCENT AUTO 14 % (21-46); MONOCYTES ABSOLUTE AUTO 0.92 K/mm3 (0.16-1.47); MONOCYTES PERCENT AUTO 10 % (4-13); Mean Corpuscular HGB Conc 34.3 g/dL (31.5-36.5); Mean Corpuscular Volume 80 fL (80-100); NEUTROPHILS ABSOLUTE AUTO 7.02 K/mm3 (1.96-9.15); NEUTROPHILS PERCENT AUTO 75 % (41-73); NRBC ABSOLUTE 0.00 K/mm3 (0.00-0.02); NRBC Auto 0.0 /100 WBC (0.0-0.2); Platelet Count 199 K/mm3 (150-400); RDW Coefficient Variation 14.5 % (11.7-14.2); RDW Standard Deviation 42.1 fL (35.1-46.3)
[2025-02-21 12:54] LABS: Alanine Aminotransfer (ALT/SGP 63.0 U/L (12-78); Albumin, Blood 3.4 g/dL (3.4-5.0); Albumin/Globulin Ratio 1.0 (0.8-1.8); Anion Gap 13.0 mmol/L (3-11); Aspartate Aminotrans (AST/SGOT 53.0 U/L (12-37); Bilirubin, Total 0.4 mg/dL (0.1-1.0); Blood Urea Nitrogen 20.0 mg/dL (8-24); CO2, Blood 22.0 mmol/L (21-32); Calcium, Blood 9.7 mg/dL (8.5-10.1); Chloride, Blood 102.0 mmol/L (98-108); Creatinine, Blood 0.77 mg/dL (0.40-1.00); Globulin, Blood 3.5 g/dL (2.2-4.0); Glucose, Blood 149.0 mg/dL (70-99); Potassium, Blood 3.7 mmol/L (3.5-5.5); Sodium, Blood 133.0 mmol/L (136-145); Total Protein, Blood 6.9 g/dL (6.4-8.2)
[2025-02-21 14:30] VITALS: BP 131/74
[2025-02-22] MEDS ORDERED: HYDHCL25 PO (10:30)
[2025-02-22] MEDS ORDERED: OXYC5 PO (12:05)
[2025-02-22] MEDS ORDERED: PROM25 PO (12:05)
== END 2025-02-21 15:42 | disposition home or self-care (01) ==
LOC: ER 11:36
PROVIDERS: Physician Assistant
DX: K85.90 Acute pancreatitis without necrosis or infection, unspecified (principal); Z87.891 Personal history of nicotine dependence; Z88.5 Allergy status to narcotic agent; Z91.040 Latex allergy status; Z79.899 Other long term (current) drug therapy; Z79.51 Long term (current) use of inhaled steroids
CPT/HCPCS: 71046; 76705; 80053; 83690; 84484; 85025; 93005; 93010; 99285-25

== ENCOUNTER 2025-02-22 08:36 | Emergency (ER) | payer OTHER ==
[~2025-02-22] VITALS: Ht 162.6 cm; Wt 56.7 kg
[2025-02-22] MEDS ORDERED: NS 1,000 ML IV SCH (09:40)
[2025-02-22] MEDS ORDERED: Ondansetron HCl 2 MG / ML 2ML Vial IV ONE (09:40)
[2025-02-22] MEDS ORDERED: HYDROmorphone HCl/Pf 1MG SYR IV ONE (09:40)
[2025-02-22 10:04] LABS: BASOPHILS ABSOLUTE AUTO 0.04 K/mm3 (0.00-0.23); BASOPHILS PERCENT AUTO 1 % (0-2); EOSINOPHILS ABSOLUTE AUTO 0.04 K/mm3 (0.00-0.68); EOSINOPHILS PERCENT AUTO 1 % (0-6); Hematocrit 40.6 % (33.0-51.0); Hemoglobin 13.7 g/dL (11.5-16.0); IMMATURE GRAN ABSOLUTE AUTO 0.06 K/mm3 (0.00-0.10); IMMATURE GRAN PERCENT AUTO 1 % (0-1); LYMPHOCYTES ABSOLUTE AUTO 1.28 K/mm3 (0.84-5.20); LYMPHOCYTES PERCENT AUTO 16 % (21-46); MONOCYTES ABSOLUTE AUTO 0.85 K/mm3 (0.16-1.47); MONOCYTES PERCENT AUTO 11 % (4-13); Mean Corpuscular HGB Conc 33.7 g/dL (31.5-36.5); Mean Corpuscular Volume 81 fL (80-100); NEUTROPHILS ABSOLUTE AUTO 5.56 K/mm3 (1.96-9.15); NEUTROPHILS PERCENT AUTO 71 % (41-73); NRBC ABSOLUTE 0.00 K/mm3 (0.00-0.02); NRBC Auto 0.0 /100 WBC (0.0-0.2); Platelet Count 205 K/mm3 (150-400); RDW Coefficient Variation 14.5 % (11.7-14.2); RDW Standard Deviation 42.6 fL (35.1-46.3)
[2025-02-22 10:27] LABS: Alanine Aminotransfer (ALT/SGP 94.0 U/L (12-78); Albumin, Blood 3.5 g/dL (3.4-5.0); Albumin/Globulin Ratio 0.9 (0.8-1.8); Anion Gap 10.0 mmol/L (3-11); Aspartate Aminotrans (AST/SGOT 96.0 U/L (12-37); Bilirubin, Total 0.4 mg/dL (0.1-1.0); Blood Urea Nitrogen 17.0 mg/dL (8-24); CO2, Blood 24.0 mmol/L (21-32); Calcium, Blood 9.2 mg/dL (8.5-10.1); Chloride, Blood 101.0 mmol/L (98-108); Creatinine, Blood 0.74 mg/dL (0.40-1.00); Globulin, Blood 3.7 g/dL (2.2-4.0); Glucose, Blood 138.0 mg/dL (70-99); Potassium, Blood 3.5 mmol/L (3.5-5.5); Sodium, Blood 131.0 mmol/L (136-145); Total Protein, Blood 7.2 g/dL (6.4-8.2)
[2025-02-22] MEDS ORDERED: HYDHCL25 PO (10:30)
[2025-02-22] MEDS ORDERED: OXYC5 PO (12:05)
[2025-02-22] MEDS ORDERED: PROM25 PO (12:05)
[2025-02-22 12:08] VITALS: BP 116/56
== END 2025-02-22 12:16 | disposition home or self-care (01) ==
LOC: ER 08:36
PROVIDERS: Emergency Medicine
DX: K52.9 Noninfective gastroenteritis and colitis, unspecified (principal); Z87.891 Personal history of nicotine dependence; Z91.040 Latex allergy status; Z88.5 Allergy status to narcotic agent; Z79.51 Long term (current) use of inhaled steroids; Z79.899 Other long term (current) drug therapy
CPT/HCPCS: 74177; 80053; 83690; 84484; 85025; 93005; 93010; 96361; 96374-59; 96375; 99284-25; J1171; J2405; J7030; J7120; Q9967

== ENCOUNTER → 2025-02-26 | Outpatient (CLI) | payer OTHER ==
[~2025-02-26] MED LIST changes: +OXYC5 PO; +PROM25 PO
== END ==
LOC: LAB 15:20 → LAB SHORT 15:20
DX: T81.321D Disruption or dehiscence of closure of internal operation (surgical) wound of abdominal wall muscle or fascia, subsequent encounter (principal)
CPT/HCPCS: 87070; 87075; 87077; 87147; 87186; 87205

== ENCOUNTER 2025-03-17 18:33 | Observation (INO) | payer OTHER ==
[~2025-03-17] VITALS: Ht 165.1 cm; Wt 56.6 kg
[2025-03-17] MEDS ORDERED: Ondansetron HCl 2 MG / ML 2ML Vial IV ONE (20:35)
[2025-03-17] MEDS ORDERED: HYDROmorphone HCl/Pf 1MG SYR IV ONE (20:50)
[2025-03-17 21:56] LABS: BASOPHILS ABSOLUTE AUTO 0.01 K/mm3 (0.00-0.23); BASOPHILS PERCENT AUTO 0 % (0-2); EOSINOPHILS ABSOLUTE AUTO 0.11 K/mm3 (0.00-0.68); EOSINOPHILS PERCENT AUTO 2 % (0-6); Hematocrit 38.9 % (33.0-51.0); Hemoglobin 13.5 g/dL (11.5-16.0); IMMATURE GRAN ABSOLUTE AUTO 0.08 K/mm3 (0.00-0.10); IMMATURE GRAN PERCENT AUTO 1 % (0-1); LYMPHOCYTES ABSOLUTE AUTO 1.88 K/mm3 (0.84-5.20); LYMPHOCYTES PERCENT AUTO 26 % (21-46); MONOCYTES ABSOLUTE AUTO 0.77 K/mm3 (0.16-1.47); MONOCYTES PERCENT AUTO 11 % (4-13); Mean Corpuscular HGB Conc 34.7 g/dL (31.5-36.5); Mean Corpuscular Volume 79 fL (80-100); NEUTROPHILS ABSOLUTE AUTO 4.34 K/mm3 (1.96-9.15); NEUTROPHILS PERCENT AUTO 61 % (41-73); NRBC ABSOLUTE 0.00 K/mm3 (0.00-0.02); NRBC Auto 0.0 /100 WBC (0.0-0.2); Platelet Count 216 K/mm3 (150-400); RDW Coefficient Variation 15.0 % (11.7-14.2); RDW Standard Deviation 43.0 fL (35.1-46.3)
[2025-03-17 22:15] LABS: Alanine Aminotransfer (ALT/SGP 147.0 U/L (12-78); Albumin, Blood 3.7 g/dL (3.4-5.0); Albumin/Globulin Ratio 1.1 (0.8-1.8); Anion Gap 11.0 mmol/L (3-11); Aspartate Aminotrans (AST/SGOT 111.0 U/L (12-37); Bilirubin, Total 0.5 mg/dL (0.1-1.0); Blood Urea Nitrogen 27.0 mg/dL (8-24); CO2, Blood 25.0 mmol/L (21-32); Calcium, Blood 9.8 mg/dL (8.5-10.1); Chloride, Blood 94.0 mmol/L (98-108); Creatinine, Blood 0.75 mg/dL (0.40-1.00); Globulin, Blood 3.5 g/dL (2.2-4.0); Glucose, Blood 113.0 mg/dL (70-99); Potassium, Blood 3.9 mmol/L (3.5-5.5); Sodium, Blood 126.0 mmol/L (136-145); Total Protein, Blood 7.2 g/dL (6.4-8.2)
[2025-03-17 22:35] LABS: Influenza A, PCR NEGATIVE (NEGATIVE); Influenza B, PCR NEGATIVE (NEGATIVE); Resp Syncytial Virus, PCR NEGATIVE (NEGATIVE)
[2025-03-17] MEDS ORDERED: Pantoprazole Sodium 40 MG Injection IV ONE (23:10)
[2025-03-18 00:01] LABS: SARS-Cov-2 (COVID-19) PCR, MMC POSITIVE (NEGATIVE)
[2025-03-18 01:43] VITALS: BP 120/68
[2025-03-18] MEDS ORDERED: FLU VACC TS2025-26(6MOS UP)/PF 45 MCG/0.5 ML SYRINGE IM SCH (01:50)
[2025-03-18 02:08] LABS: Source, Urine Clean Catch
[2025-03-18] MEDS ORDERED: PREDNISOLONE ACE5 M2 UD (02:17)
[2025-03-18] MEDS ORDERED: Norco 5-325 Ta1 EACH PO (02:20)
[2025-03-18 02:24] LABS: Bilirubin, Urine Neg (Neg); Glucose Qualitative, Urine Neg (Neg); Ketones, Urine Neg (Neg); Leukocyte Esterase, Urine Neg (Neg); Protein, Urine 2+ (Neg); Specific Gravity, Urine 1.010 (1.003-1.022); Urobilinogen, Urine NORM (Normal)
[2025-03-18 02:33] LABS: Color, Urine Yellow (P-Yellow)
[2025-03-18 02:34] LABS: Red Blood Cells, Urine 0-2 /hpf (0-2); White Blood Cells, Urine 0-2 /hpf (0-5)
[2025-03-18] MEDS ORDERED: Ipratropium/Albuterol SulF 2.5-0.5MG/3 ML Amp INH SCH (02:50)
[2025-03-18] MEDS ORDERED: NS 1,000 ML IV SCH (03:00)
--- NOTE | 2025-03-18 04:25 | NUR ---
PT ADMITTED DURING SHIFT FOR HYPONATREMIA AND COVD. PATIENT ALERT AND ORIENTED, ABLE TO MAKE NEEDS KNOWN. UP INDEPENDENTLY IN ROOM WITH CANE. PATIENT ON ROOM AIR, CONT. PULSE OX [facility] PLACE[facility]. ABIGAIL POWERGLIDE. OSTOMY TO RLQ, WOUND TO L ABDOMEN. BED IN LOW POSITION WITH WHEELS LOCKED. CALL LIGHT WITHIN REACH
[2025-03-18] MEDS ORDERED: Naloxone HCl 0.4MG / ML 1ML Vial IV PRN (05:20)
[2025-03-18] MEDS ORDERED: Ondansetron HCl 2 MG / ML 2ML Vial IV PRN (05:25)
[2025-03-18] MEDS ORDERED: Ketorolac Tromethamine 15mg Vial IV PRN (06:05)
[2025-03-18] MEDS ORDERED: HYDROmorphone HCl/Pf 1MG SYR IV ONE (07:00)
--- NOTE | 2025-03-18 07:22 | NUR ---
PT LEFT AMA AT 0630. DR. NEVAREZ WAS NOTIFIED OF PATIENT LEAVING AMA. PATIENT WAS EDUCATED ON THE RISKS AND BENEFITS OF LEAVING AMA. PATIENT VRBALIZED UNDERSTANDING BUT STILL DECIDES TO LEAVE AMA. ABIGAIL POWERGLIDE REMOVED AND TELE REMOVED. LANEAM PAPER REVIEWED AND SIGNED BY PATIENT.
[2025-03-18] MEDS ORDERED: Lactobacil 2-S.Thermo-Bifido 1 1 Cap PO SCH (09:00)
[2025-03-18] MEDS ORDERED: Enoxaparin 40 MG/0.4 ML SYR SC SCH (09:00)
== END 2025-03-18 06:30 | disposition left against medical advice (07) ==
LOC: ER 18:33 → MEDS 18:34
PROVIDERS: Emergency Medicine; Student in an Organized Health Care Education/Training Program; ADMIT Student in an Organized Health Care Education/Training Program
DX: E87.1 Hypo-osmolality and hyponatremia (principal); U07.1 COVID-19; L03.319 Cellulitis of trunk, unspecified; B96.1 Klebsiella pneumoniae [K. pneumoniae] as the cause of diseases classified elsewhere; B95.61 Methicillin susceptible Staphylococcus aureus infection as the cause of diseases classified elsewhere; B95.8 Unspecified staphylococcus as the cause of diseases classified elsewhere; J44.9 Chronic obstructive pulmonary disease, unspecified; R74.01 Elevation of levels of liver transaminase levels; K21.9 Gastro-esophageal reflux disease without esophagitis; Z53.29 Procedure and treatment not carried out because of patient's decision for other reasons; Z87.891 Personal history of nicotine dependence; Z79.899 Other long term (current) drug therapy; Z88.0 Allergy status to penicillin; Z88.5 Allergy status to narcotic agent; Z88.8 Allergy status to other drugs, medicaments and biological substances; Z91.040 Latex allergy status; Z90.49 Acquired absence of other specified parts of digestive tract; Z93.2 Ileostomy status
CPT/HCPCS: 74177; 80053; 81001; 83605; 83690; 84484; 85025; 87040; 87637; 93005; 93010; 96374-59; 96375; 99285-25; A9270; G0378; J1171; J1885; J2405; J2470; J7030; J7120; Q9967

== ENCOUNTER → 2025-04-10 | Outpatient (CLI) | payer OTHER ==
[~2025-04-10] MED LIST changes: +Norco 5-325 Ta1 EACH PO; +PREDNISOLONE ACE5 M2 UD
[2025-04-14 06:01] LABS: CORTISOL,U FREE - RATIO TO CRT 2.75 ug/g CRT; CORTISOL,URN FREE - PER VOLUME 5.77 ug/L; CREATININE,URINE - PER VOLUME 210 mg/dL; HOURS COLLECTED Not Provided hr
== END | disposition home or self-care (01) ==
LOC: LAB SHORT 08:53 → LAB 08:53 → LAB FUT 04-05 08:25
PROVIDERS: Internal Medicine Nephrology
DX: N18.2 Chronic kidney disease, stage 2 (mild) (principal); D63.1 Anemia in chronic kidney disease; N25.81 Secondary hyperparathyroidism of renal origin; E55.9 Vitamin D deficiency, unspecified; E78.00 Pure hypercholesterolemia, unspecified; D51.8 Other vitamin B12 deficiency anemias; D52.8 Other folate deficiency anemias; D60.9 Acquired pure red cell aplasia, unspecified; R76.9 Abnormal immunological finding in serum, unspecified; R94.5 Abnormal results of liver function studies
CPT/HCPCS: 82530

== ENCOUNTER 2025-05-04 05:17 | Emergency (ER) | payer OTHER ==
[~2025-05-04] VITALS: Ht 162.6 cm; Wt 56.2 kg
[2025-05-04] MEDS ORDERED: SPIRIVA RESPIMAT4 G2 IH (05:49)
[2025-05-04] MEDS ORDERED: AMINOFEN325 MG PO (05:49)
[2025-05-04] MEDS ORDERED: BUDESONIDE-FO10.2 G3 IH (05:50)
[2025-05-04 06:29] LABS: Hematocrit 43.2 % (33.0-51.0); Hemoglobin 14.3 g/dL (11.5-16.0); Mean Corpuscular HGB Conc 33.1 g/dL (31.5-36.5); Mean Corpuscular Volume 86 fL (80-100); NRBC ABSOLUTE 0.00 K/mm3 (0.00-0.02); NRBC Auto 0.0 /100 WBC (0.0-0.2); Platelet Count 202 K/mm3 (150-400); RDW Coefficient Variation 14.7 % (11.7-14.2); RDW Standard Deviation 47.4 fL (35.1-46.3)
[2025-05-04 06:46] LABS: C-REACTIVE PROTEIN, EXT RANGE 0.753 mg/dL (0.000-0.300)
[2025-05-04 06:48] LABS: Alanine Aminotransfer (ALT/SGP 116.0 U/L (12-78); Albumin, Blood 4.1 g/dL (3.4-5.0); Albumin/Globulin Ratio 1.1 (0.8-1.8); Anion Gap 11.0 mmol/L (3-11); Aspartate Aminotrans (AST/SGOT 88.0 U/L (12-37); Bilirubin, Total 0.3 mg/dL (0.1-1.0); Blood Urea Nitrogen 23.0 mg/dL (8-24); CO2, Blood 22.0 mmol/L (21-32); Calcium, Blood 9.8 mg/dL (8.5-10.1); Chloride, Blood 101.0 mmol/L (98-108); Creatinine, Blood 1.26 mg/dL (0.40-1.00); Globulin, Blood 3.8 g/dL (2.2-4.0); Glucose, Blood 93.0 mg/dL (70-99); Potassium, Blood 3.6 mmol/L (3.5-5.5); Sodium, Blood 130.0 mmol/L (136-145); Total Protein, Blood 7.9 g/dL (6.4-8.2)
[2025-05-04 06:56] LABS: BASOPHILS ABSOLUTE MAN 0.00 K/mm3 (0.00-0.23); BASOPHILS PERCENT MAN 0 % (0-2); EOSINOPHILS ABSOLUTE MAN 0.30 K/mm3 (0.00-0.68); EOSINOPHILS PERCENT MAN 3 % (0-6); LYMPHOCYTES ABSOLUTE MAN 1.31 K/mm3 (0.84-5.20); LYMPHOCYTES PERCENT MAN 13 % (21-46); MONOCYTES ABSOLUTE MAN 0.81 K/mm3 (0.16-1.47); MONOCYTES PERCENT MAN 8 % (4-13); NEUTROPHILS ABSOLUTE MAN 7.71 K/mm3 (1.96-9.15); SEG NEUTROPHILS PERCENT MAN 76 % (41-73)
[2025-05-04] MEDS ORDERED: DiphenhydrAMINE HCl 50 MG/ML 1ML Vial IV ONE (07:30)
[2025-05-04] MEDS ORDERED: Morphine Sulfate 4 MG/1 ML Injection IV ONE (07:30)
[2025-05-04] MEDS ORDERED: NS 1,000 ML IV SCH (08:55)
[2025-05-04] MEDS ORDERED: CEPH500 PO (09:19)
[2025-05-04 11:00] VITALS: BP 108/67
== END 2025-05-04 11:20 | disposition home or self-care (01) ==
LOC: ER 05:17
PROVIDERS: Student in an Organized Health Care Education/Training Program
DX: L03.311 Cellulitis of abdominal wall (principal); S31.103A Unspecified open wound of abdominal wall, right lower quadrant without penetration into peritoneal cavity, initial encounter; E87.1 Hypo-osmolality and hyponatremia; N17.9 Acute kidney failure, unspecified; K21.9 Gastro-esophageal reflux disease without esophagitis; F17.210 Nicotine dependence, cigarettes, uncomplicated; J44.9 Chronic obstructive pulmonary disease, unspecified; X58.XXXA Exposure to other specified factors, initial encounter; Z93.2 Ileostomy status; Z79.01 Long term (current) use of anticoagulants; Z79.899 Other long term (current) drug therapy; Z88.0 Allergy status to penicillin; Z91.040 Latex allergy status; Z88.5 Allergy status to narcotic agent; Z88.8 Allergy status to other drugs, medicaments and biological substances
CPT/HCPCS: 74177; 80053; 85025; 85651; 86140; 96374-59; 96375; 99284-25; A9270; J1200; J2270; J7030; Q9967